=== PATIENT | male | born 1970 ===

== ENCOUNTER 2017-07-27 00:14 | Emergency (ER) | payer SELFPAY ==
[2017-07-27 01:06] VITALS: BP 131/85
[2017-07-27 01:40] LABS: Basophils % (Auto) 0.9 % (0.0-1.8); Eosinophils # (Auto) 0.1 K/mm3 (0.0-0.4); Eosinophils % (Auto) 1.6 % (0.0-4.3); Hematocrit 30.3 % (35.5-45.6); Hemoglobin 10.2 gm/dl (11.8-15.2); Lymphocytes # (Auto) 1.6 K/mm3 (1.2-5.4); Lymphocytes % (Auto) 34.1 % (13.4-35.0); Mean Corpuscular HGB Conc 34 % (32-34); Mean Corpuscular Hemoglobin 30 pg (28-32); Mean Corpuscular Volume 89 fl (84-94); Monocytes # (Auto) 0.3 K/mm3 (0.0-0.8); Monocytes % (Auto) 7.5 % (0.0-7.3); Platelet Count 282 K/mm3 (140-440); Red Blood Count 3.39 M/mm3 (3.65-5.03); Red Cell Distribution Width 16.7 % (13.2-15.2)
[2017-07-27 02:03] LABS: BUN/Creatinine Ratio 14; Blood Urea Nitrogen 14 mg/dL (9-20); Hemolysis Index 2
== END 2017-07-27 01:21 | disposition left against medical advice (07) ==
LOC: ED 00:14
DX: R07.9 Chest pain, unspecified (principal); Z53.21 Procedure and treatment not carried out due to patient leaving prior to being seen by health care provider
CPT/HCPCS: 36415; 80048; 84484; 85025; 93005; 93010

== ENCOUNTER 2018-05-05 20:07 | Inpatient (IN) | payer SELFPAY ==
--- NOTE | 2018-05-05 20:44 | Emergency Department Report ---
Blank Doc - Documentation Documentation: 48 year old male with pmh of unstable angina and stent placement, PE 6 months ago got a J Peg placed here today cc of chest pain radiating to shoulder, at rest when it happened took 5 nitro tabs no relief labs, protocol charge Nurse notified reevaluate by MAN ED physician
[2018-05-05 21:03] LABS: Basophils % (Auto) 0.4 % (0.0-1.8); Eosinophils % (Auto) 0.3 % (0.0-4.3); Hematocrit 27.6 % (35.5-45.6); Hemoglobin 9.4 gm/dl (11.8-15.2); Lymphocytes # (Auto) 1.1 K/mm3 (1.2-5.4); Lymphocytes % (Auto) 14.5 % (13.4-35.0); Mean Corpuscular HGB Conc 34 % (32-34); Mean Corpuscular Volume 89 fl (84-94); Monocytes # (Auto) 0.3 K/mm3 (0.0-0.8); Monocytes % (Auto) 3.7 % (0.0-7.3); Platelet Count 365 K/mm3 (140-440); Red Blood Count 3.09 M/mm3 (3.65-5.03); Red Cell Distribution Width 14.5 % (13.2-15.2)
[2018-05-05 21:14] LABS: INR 1.01 (0.87-1.13)
[2018-05-05 21:15] LABS: Partial Thromboplastin Time 28.1 Sec. (24.2-36.6)
[2018-05-05 21:20] LABS: Albumin 2.8 g/dL (3.9-5); Calcium 8.4 mg/dL (8.4-10.2)
--- NOTE | 2018-05-05 22:17 | XRay Report ---
FINAL REPORT PROCEDURE: XR CHEST ROUTINE 2V TECHNIQUE: PA and lateral chest radiographs were obtained. CPT 24042 HISTORY: Chest Pain COMPARISON: No prior studies are available for comparison. FINDINGS: Heart: A prosthetic cardiac valve is identified. Cardiac size is within normal limits.. Mediastinum/Vessels: Normal. Lungs/Pleural space: Normal. Bony thorax: No acute osseous abnormality. Other: IMPRESSION: No acute abnormality.
[2018-05-05] MEDS ORDERED: MORPHINE IV ONE (22:20)
--- NOTE | 2018-05-05 23:54 | Emergency Department Report ---
ED Chest Pain HPI - General Chief Complaint: Chest Pain Stated Complaint: CP/ABD PAIN/VOMITING BLOOD Time Seen by Provider: 05/05/18 20:38 Source: patient Mode of arrival: Ambulatory Limitations: No Limitations - History of Present Illness Initial Comments: 48-year-old male with history of PE, CAD, valve replacement, gastric bypass surgery, ruptured duodenal ulcer presents to ED with chest pain and abdominal pain near his J tube site. Patient states the chest pain is "crushing" in nature, states he took 5 nitroglycerin at home without relief of his pain. Patient reported abdominal pain near his J-tube site insertion for one month. Patient states he was diagnosed with a ruptured duodenal ulcer approximately 3 months ago and had a J-tube placed at [facility]. Reports blood- streaked emesis today. History of PE, no longer on any blood thinners. MD Complaint: chest pain -: minutes(s) (45) Onset: during rest Pain Location: substernal Pain Radiation: none Severity: moderate Severity scale (0 -10): 8 Quality: other (crushing) Consistency: constant Improves With: nothing Worsens With: nothing re: nausea, vomting. denies: dyspnea Treatments Prior to Arrival: nitroglycerin - Related Data Allergies Allergy/AdvReac Type Severity Reaction Status Date / Time NSAIDS (Non-Steroidal Allergy Bleeding Verified 07/27/17 01:06 Anti-Inflamma lisinopril AdvReac Unknown Verified 07/27/17 01:06 Heart Score - HEART Score History: Slightly suspicious EKG: Non-specific Age: 45-65 Risk factors: > 3 risk factors or hx of atherosclerotic disease Troponin: < normal limit HEART Score: 4 ED Review of Systems ROS: Stated complaint: CP/ABD PAIN/VOMITING BLOOD Other details as noted in HPI Comment: All other systems reviewed and negative Constitutional: denies: fever Respiratory: denies: shortness of breath Cardiovascular: chest pain Gastrointestinal: abdominal pain, nausea, vomiting ED Past Medical Hx - Past Medical History Previous Medical History?: Yes Hx Hypertension: Yes Hx CVA: No Hx Heart Attack/AMI: Yes Hx Congestive Heart Failure: No Hx Diabetes: No Hx Deep Vein Thrombosis: No Hx Pulmonary Embolism: Yes Hx GERD: No Hx Liver Disease: No Hx Renal Disease: No Hx of Cancer: No Hx Sickle Cell Disease: No Hx Arthritis: No Hx Headaches / Migraines: No Hx Seizures: No Hx Kidney Stones: No Hx Psychiatric Treatment: No Hx Asthma: No Hx COPD: No Hx Tuberculosis: No Hx Dementia: No Hx HIV: No Additional medical history: DVT purfuated bowl jpg - Surgical History Past Surgical History?: Yes Hx Coronary Stent: Yes Hx Open Heart Surgery: No Hx Pacemaker: No Hx Internal Defibrillator: No Hx Cholecystectomy: No Hx Appendectomy: No Hx Breast Surgery: No Additional Surgical History: Gastric bypass. jpg - Social History Smoking Status: Never Smoker Substance Use Type: None ED Physical Exam - General Limitations: No Limitations General appearance: alert, in no apparent distress - Head Head exam: Present: atraumatic, normocephalic - Eye Eye exam: Present: normal appearance - ENT ENT exam: Present: mucous membranes moist - Neck Neck exam: Present: normal inspection - Respiratory Respiratory exam: Present: normal lung sounds bilaterally. Absent: respiratory distress - Cardiovascular Cardiovascular Exam: Present: regular rate, normal rhythm - GI/Abdominal GI/Abdominal exam: Present: soft, tenderness. Absent: distended - Extremities Exam Extremities exam: Present: normal inspection - Neurological Exam Neurological exam: Present: alert, oriented X3 - Psychiatric Psychiatric exam: Present: normal affect, normal mood - Skin Skin exam: Present: warm, dry, intact, normal color ED Course Vital Signs 05/05/18 05/05/18 05/05/18 20:39 21:36 21:46 Temperature 97.9 F Pulse Rate 85 77 Respiratory 18 20 Rate Blood Pressure 127/74 127/79 O2 Sat by Pulse 98 99 100 Oximetry 05/05/18 22:00 Temperature Pulse Rate 79 Respiratory 26 H Rate Blood Pressure O2 Sat by Pulse 99 Oximetry ED Medical Decision Making - Lab Data Result diagrams: 05/05/18 20:49 05/05/18 20:49 - EKG Data -: EKG Interpreted by Nc EKG shows normal: sinus rhythm, axis, intervals, QRS complexes, ST-T waves Rate: normal - EKG Data Interpretation: other (T wave inversion in anterior leads) - Radiology Data Radiology results: report reviewed, image reviewed - Medical Decision Making 38-year-old male with extensive medical history presents with chest and abdominal pain. CT chest negative for PE. CT abdomen and pelvis negative for any acute modalities, including obstruction. EKG shows T-wave inversions in anterior leads, however troponin negative. Vital signs stable. Patient states pain unrelieved with nitroglycerin at home. Patient given morphine here in ED. Will admit to Dr. Hamm, hospitalist, for further workup. - Differential Diagnosis ACS, PE, bowel obstruction Critical care attestation.: If time is entered above; I have spent that time in minutes in the direct care of this critically ill patient, excluding procedure time. ED Disposition Clinical Impression: Abdominal pain, Unstable angina Disposition: OP ADMIT IP TO THIS HOSP Is pt being admited?: Yes Condition: Stable Instructions: Angina (ED) Referrals: PRIMARY CARE, [Primary Care Provider] - 3-5 Days Time of Disposition: 01:19
[2018-05-06] MEDS ORDERED: LOMOTIL PO ONE (00:14)
--- NOTE | 2018-05-06 00:19 | Cat Scan Report ---
FINAL REPORT EXAM: CT ANGIO CHEST HISTORY: chest pain, hx of PE TECHNIQUE: A CT angiogram was performed following the intravenous injection of 100 cc of Omnipaque 3 50. Rotational, sagittal, and coronal MIP reconstructions were reviewed. FINDINGS: There is no evidence of pulmonary embolus or aortic dissection. The thoracic aorta is normal in calib er. Heart size is normal. Pericardial fluid is not seen. There is no evidence of adenopathy. The lung s are not congested. There are no infiltrates or effusions. At the thoracic inlet the thyroid gland a ppears normal. In the upper abdomen there is a small hiatal hernia. The adrenal glands appear normal. There is multilevel disc degeneration in the thoracic spine. There previous sternotomy noted. IMPRESSION: No evidence of pulmonary embolus, aortic dissection, or vascular congestion. Previous sternotomy. No acute infiltrates or effusions.
--- NOTE | 2018-05-06 00:43 | Cat Scan Report ---
FINAL REPORT PROCEDURE: CT ABDOMEN PELVIS W CON TECHNIQUE: Computerized axial tomography of the abdomen and pelvis was performed after the IV inject ion of iodinated nonionic contrast. HISTORY: abd pain COMPARISON: No prior studies are available for comparison. FINDINGS: Visualized lower thorax: No significant abnormality. Liver: Normal size and attenuation. Spleen: Normal size and attenuation. Gallbladder and biliary system: The gallbladder is absent. No dilatation of the biliary ductal system . Pancreas: Normal. Adrenals: Normal. Kidneys: Both kidneys have normal size. No hydronephrosis. No renal stones. GI tract: The stomach shows a small hiatal hernia. Small bowel has a normal caliber. No obstruction i s seen. There is oral contrast within the colon.. Lymph nodes and mesentery: Normal. Vasculature: Normal. Bladder: Normal. Reproductive organs: Normal. Peritoneum: There is a catheter entering the abdomen from mid left anterior abdominal wall. No signif icant fluid noted.. Musculoskeletal structures: Moderate degenerative changes of the spine.. Other: None. IMPRESSION: There is no evidence of intestinal or urinary tract obstruction. There is a small hiatal hernia noted . There is a catheter entering the abdomen from the mid left anterior abdominal wall. Previous cholecystectomy.
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
[2018-05-06] MEDS: MORPHINE IV PRN ×4 (03:00→15:30)
[2018-05-06] MEDS ORDERED: SODIUM CHLORIDE FLUSH SYRINGE 10 ML IV PRN (06:42)
[2018-05-06] MEDS ORDERED: TYLENOL PO PRN (06:42)
[2018-05-06] MEDS ORDERED: NACL 0.9% 1000 ML 1,000 ML IV SCH (07:00)
[2018-05-06 07:36] LABS: Basophils % (Auto) 0.4 % (0.0-1.8); Eosinophils % (Auto) 0.4 % (0.0-4.3); Hematocrit 29.6 % (35.5-45.6); Hemoglobin 9.9 gm/dl (11.8-15.2); Lymphocytes # (Auto) 0.9 K/mm3 (1.2-5.4); Lymphocytes % (Auto) 11.1 % (13.4-35.0); Mean Corpuscular HGB Conc 33 % (32-34); Mean Corpuscular Volume 89 fl (84-94); Monocytes # (Auto) 0.3 K/mm3 (0.0-0.8); Monocytes % (Auto) 4.1 % (0.0-7.3); Platelet Count 342 K/mm3 (140-440); Red Blood Count 3.34 M/mm3 (3.65-5.03); Red Cell Distribution Width 14.5 % (13.2-15.2)
[2018-05-06 07:52] LABS: Creatine Kinase MB 1.3 ng/mL (0.0-4.0)
[2018-05-06 07:58] LABS: BUN/Creatinine Ratio 14; Blood Urea Nitrogen 14 mg/dL (9-20); Calcium 8.3 mg/dL (8.4-10.2); Hemolysis Index 36
[2018-05-06] MEDS ORDERED: LOVENOX SUB-Q SCH ×3 (10:00)
[2018-05-06] MEDS: SODIUM CHLORIDE FLUSH SYRINGE 10 ML IV SCH ×2 (10:43→21:04)
--- NOTE | 2018-05-06 11:05 | XRay Report ---
X-RAY G-TUBE STUDY History: G-tube site pain. Findings: Enroute Controller film of the abdomen demonstrates a jejunal tube in the lower abdomen and residual contrast in the colon. A second image was obtained after injection of contrast through the J-tube which opacifies multiple distal small bowel loops. There is no obvious obstruction or extravasation. Impression: The jejunal tube appears in position.
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
[2018-05-06] MEDS ORDERED: SODIUM BICARBONATE FEEDTUBE PRN (12:00)
[2018-05-06] MEDS ORDERED: PANCREAZE DR 10,500 UNIT FEEDTUBE PRN (12:00)
[2018-05-06] MEDS ORDERED: SIMPLE SYRUP FEEDTUBE PRN ×2 (12:00)
[2018-05-06 12:46] LABS: Creatine Kinase MB 1.1 ng/mL (0.0-4.0)
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
[2018-05-06] MEDS ORDERED: MORPHINE IV ONE (12:50)
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
[2018-05-06] MEDS: XANAX PO PRN ×2 (13:57→21:04)
--- NOTE | 2018-05-06 17:30 | Progress Note ---
Assessment and Plan Assessment and plan: A/P Moderately- Severe Protein calorie Malnutrition nutrition on board Acute on chronic chest pain cardio on board for stress test tomorrow Anemia of chronic disease monitor closely Acute on chronic abd pain GI on board h/o Gastric bypass 2008 h/o Perforated PUD continue PPI h/o CAD s/p CABG and s/p Stent placement cardio on board Suspect Chronic pain syndrome outpt pain mgt supportive care Mild Hyperkalemia monitor IVF hydration Further pt mgt per hospital course Disposition Plan: stress test in am Total Time Spent with Patient (Minutes): more than 33 mins History Interval history: HPI on 05/05/18 48-year-old man with a history of coronary artery disease, valve replacement, rupture of duodenal ulcer 3 months ago comes emergency room complaining of pain around his G-tube site which was replaced yesterday at [facility]. Also complaining of chest pain in the epigastric area which he is status a crushing pain, intermittent every 30 minutes, intensity 6/10, radiating to the left neck. Admits to nausea, no shortness of breath, diaphoresis. He had a stress test in [place] 4 months ago which was abnormal, he was supposed to follow-up with cardiac cath which he never did. Subjective: LATE ENTRY pt c/o 8/10 substarnal chest pain associated with SOB, not relieved by 2 mg of Morphine, wants something stronger for pain. Cardio input appreciated. Hospitalist Physical - Constitutional Vitals: Temp Pulse Resp BP Pulse Ox 99.1 F 69 20 146/89 97 05/06/18 16:04 05/06/18 16:04 05/06/18 16:04 05/06/18 16:04 05/06/18 16:04 General appearance: Present: mild distress (2/2 chest and abd pain), other (malnourished) - EENT Eyes: Present: PERRL, EOM intact ENT: hearing intact, clear oral mucosa - Neck Neck: Present: supple, normal ROM - Respiratory Respiratory: bilateral: CTA, negative: diminished, rales, rhonchi, wheezing - Cardiovascular Rhythm: regular Heart Sounds: Present: S1 & S2 - Extremities Extremities: pulses intact, normal temperature, normal color - Abdominal General gastrointestinal: soft, non-tender, non-distended, normal bowel sounds (surgical scars noted, PEG tube in place) - Integumentary Integumentary: Present: clear, warm, dry - Psychiatric Psychiatric: appropriate mood/affect, intact judgment & insight, memory intact, cooperative - Neurologic Neurologic: CNII-XII intact, moves all extremities - Allied Health Allied health notes reviewed: nursing, social work, case management Results - Labs CBC & Chem 7: 05/06/18 07:16 05/06/18 07:16 Labs: Laboratory Last Values WBC 8.3 K/mm3 (4.5-11.0) 05/06/18 07:16 RBC 3.34 M/mm3 (3.65-5.03) L 05/06/18 07:16 Hgb 9.9 gm/dl (11.8-15.2) L 05/06/18 07:16 Hct 29.6 % (35.5-45.6) L 05/06/18 07:16 MCV 89 fl (84-94) 05/06/18 07:16 MCH 30 pg (28-32) 05/06/18 07:16 MCHC 33 % (32-34) 05/06/18 07:16 RDW 14.5 % (13.2-15.2) 05/06/18 07:16 Plt Count 342 K/mm3 (140-440) 05/06/18 07:16 Lymph % (Auto) 11.1 % (13.4-35.0) L 05/06/18 07:16 [place] % (Auto) 4.1 % (0.0-7.3) 05/06/18 07:16 Eos % (Auto) 0.4 % (0.0-4.3) 05/06/18 07:16 Baso % (Auto) 0.4 % (0.0-1.8) 05/06/18 07:16 Lymph # 0.9 K/mm3 (1.2-5.4) L 05/06/18 07:16 [place] # 0.3 K/mm3 (0.0-0.8) 05/06/18 07:16 Eos # 0.0 K/mm3 (0.0-0.4) 05/06/18 07:16 Baso # 0.0 K/mm3 (0.0-0.1) 05/06/18 07:16 Seg Neutrophils % 84.0 % (40.0-70.0) H 05/06/18 07:16 Seg Neutrophils # 7.0 K/mm3 (1.8-7.7) 05/06/18 07:16 PT 13.9 Sec. (12.2-14.9) 05/05/18 20:49 INR 1.01 (0.87-1.13) 05/05/18 20:49 APTT 28.1 Sec. (24.2-36.6) 05/05/18 20:49 D-Dimer 479.07 ng/mlDDU (0-234) H 05/05/18 20:49 Sodium 138 mmol/L (137-145) 05/06/18 07:16 Potassium 5.1 mmol/L (3.6-5.0) H 05/06/18 07:16 Chloride 102.9 mmol/L (98-107) 05/06/18 07:16 Carbon Dioxide 21 mmol/L (22-30) L 05/06/18 07:16 Anion Gap 19 mmol/L 05/06/18 07:16 BUN 14 mg/dL (9-20) 05/06/18 07:16 Creatinine 1.0 mg/dL (0.8-1.5) 05/06/18 07:16 Estimated GFR > 60 ml/min 05/06/18 07:16 BUN/Creatinine Ratio 14 % 05/06/18 07:16 Glucose 118 mg/dL (75-100) H 05/06/18 07:16 Calcium 8.3 mg/dL (8.4-10.2) L 05/06/18 07:16 Total Bilirubin 0.20 mg/dL (0.1-1.2) 05/05/18 20:49 AST 47 units/L (5-40) H 05/05/18 20:49 ALT 26 units/L (7-56) 05/05/18 20:49 Alkaline Phosphatase 89 units/L (35-129) 05/05/18 20:49 Total Creatine Kinase 33 units/L (55-170) L 05/06/18 12:11 CK-MB (CK-2) 1.1 ng/mL (0.0-4.0) 05/06/18 12:11 CK-MB (CK-2) Rel Index 3.3 (0-4) 05/06/18 12:11 Troponin T < 0.010 ng/mL (0.00-0.029) 05/06/18 12:11 Total Protein 6.9 g/dL (6.3-8.2) 05/05/18 20:49 Albumin 2.8 g/dL (3.9-5) L 05/05/18 20:49 Albumin/Globulin Ratio 0.7 % 05/05/18 20:49 Lipase 17 units/L (13-60) 05/05/18 20:49 Blood Type A POSITIVE 05/05/18 20:49 Antibody Screen Negative 05/05/18 20:49 - Imaging and Cardiology Abdominal x-ray: report reviewed CT scan - chest: report reviewed Nutrition/Malnutrition Assess - Dietary Evaluation Nutrition/Malnutrition Findings: Nutrition Notes Start: 05/06/18 10:29 Freq: Status: Active Protocol: Document 05/06/18 10:29 ER (Rec: 05/06/18 10:50 ER [id number]) Co-Sign 05/06/18 10:29 LP Nutrition Notes Need for Assessment generated from: new accounts banking representative Initial or Follow up Assessment Current Diagnosis Coronary Artery Disease Hypertension Other Pertinent Diagnosis J-Tube, CABG, Gastric Bypass ( 2008) Current Diet Cardiac Diet Labs/Tests K: 5.1 Pertinent Medications Reviewed Height 6 ft 1 in Weight 67.1 kg Usual Body Weight 90.9 kg [place] Body Weight (kg) 83.63 BMI 19.5 Weight change and time frame 52# weightloss in one year (26 %) Weight Status Underweight Subjective/Other Information RN screen for pt. receiving TF . Pt. has a J-Tube in place and was feeding with Nutren 2. 0 at home. Pt. stated he usually does 24 hour feeds. Pt . stated he can drink fluids PO, but has a hard time eating solid foods. Pt. stated he weighed 380# before having a Jacob-en-Y gastric bypass in 2008. Pt. had stable weight of 200# until about a year ago. Pt. stated he wants to reverse the gastric bypass, but the doctor thought he was too weak . Pt. stated he doesn't exercise d/t his heart fluttering. Pt. has decreased muscle and fat mass along the forearms and in the temporal region. Pt. has had diarrhea and denies N/V and constipation. Per GI doctor, pt. can start TF. Burn Absent Trauma Absent GI Symptoms Diarrhea Minimum of two criteria Yes Interpretation of Weight Loss (severe) > 20% in 1 year Body Fat Depletion Moderate depletion (severe) Muscle Mass Moderate Depletion (severe) #2 Nutrition Diagnosis Altered GI function Etiology duodenal ulcer As Evidenced by Signs and Symptoms PEJ-tube #1 Nutrition Diagnosis Malnutrition Etiology inadequate energy and protein intake As Evidenced by Signs and Symptoms significant weightloss of 26% in one year, and moderate to severe fat and muscle mass depletion Is patient on ventilator? No Is Patient Ambulatory and/or Out of Bed Yes REE-([facility]-ambulatory/OOB) [ 2066.844 [id number]] Calculation Used for Recommendations [facility][1] Additional Notes PRO needs: 80-101g (1.2-1.5g/ kg) Fluid needs: 1 mL/kcal Nutrition Intervention Change Diet Order: TF - Jevity 1.2 at 70mL/hr Nutrition Support: Jevity 1.2 at 70 mL/hr w/100mL water flush q4h Kcal 2,016 Protein (gm) 96 Fluid (mL) 1,356 Fiber (gm) 30 Goal #1 TF to meet 100% of energy and protein needs. Goal #2 Weight maintenance Anticipated Discharge Needs: Tube Feed Follow-Up By: 05/09/18 Additional Comments F/U: New TF, weight maintenance
[2018-05-06] MEDS ORDERED: NACL 0.45% 1000 ML IV SCH (18:00)
[2018-05-06] MEDS ORDERED: NACL 0.45% 1000 ML 1,000 ML IV SCH (18:00)
[2018-05-06] MEDS: LOMOTIL PO PRN (18:33)
[2018-05-06] MEDS: DILAUDID IV PRN ×2 (18:34→22:40)
[2018-05-06] MEDS ORDERED: NON-FORMULARY (Simvastatin 40 MG) PO SCH (22:00)
[2018-05-06] MEDS ORDERED: PRAVACHOL PO SCH (22:00)
[2018-05-06] MEDS: NACL 0.45% 1000 ML 1,000 ML IV SCH (23:22)
[2018-05-06] MEDS: AMBIEN PO PRN (23:52)
[2018-05-07 00:58] LABS: Hematocrit 26.9 % (35.5-45.6); Hemoglobin 8.8 gm/dl (11.8-15.2); Mean Corpuscular HGB Conc 33 % (32-34); Mean Corpuscular Volume 90 fl (84-94); Platelet Count 280 K/mm3 (140-440); Red Blood Count 2.98 M/mm3 (3.65-5.03); Red Cell Distribution Width 14.6 % (13.2-15.2)
[2018-05-07 01:23] LABS: BUN/Creatinine Ratio 12; Blood Urea Nitrogen 12 mg/dL (9-20); Calcium 7.6 mg/dL (8.4-10.2); Hemolysis Index 3
[2018-05-07] MEDS: DILAUDID IV PRN ×5 (02:42→21:20)
[2018-05-07] MEDS: XANAX PO PRN ×3 (02:42→21:19)
[2018-05-07] MEDS: LOMOTIL PO PRN ×3 (02:46→21:18)
[2018-05-07] MEDS ORDERED: LEXISCAN IV ONE ×2 (08:09→08:30)
[2018-05-07] MEDS ORDERED: NACL 0.45% 1000 ML 1,000 ML IV ONE (10:21)
[2018-05-07] MEDS: NACL 0.45% 1000 ML 1,000 ML IV SCH (11:03)
--- NOTE | 2018-05-07 15:49 | Progress Note ---
Assessment and Plan Acute on chronic chest pain Abnormal stress test cardio on board Moderately- Severe Protein calorie Malnutrition nutrition on board Anemia of chronic disease monitor closely Acute on chronic abd pain GI on board h/o Gastric bypass 2008 h/o Perforated PUD continue PPI h/o CAD s/p CABG and s/p Stent placement cardio on board Suspect Chronic pain syndrome outpt pain mgt supportive care Mild Hyperkalemia -corrected monitor IVF hydration Disposition Plan: Commence spent on antiplatelet, Plavix, to be decided by GI and thereafter discharged if clinically stable Total Time Spent with Patient (Minutes): more than 33 mins Subjective Date of service: 05/07/18 Principal diagnosis: chest pain, chronic pain syndrome, coronary artery disease status post CABG Interval history: Had a stress test today showed fixed apical wall defect suggestive of ischemia of LAD distribution Objective - Exam Narrative Exam: Constitutional: Well-nourished well-developed. In no distress Head: Normocephalic atraumatic Eyes: Pupils are equal round and reactive to light Nose: No enlarged turbinates, no septal deviation. Mouth: Moist mucous membranes. Neck: Supple no thyromegaly. No bruit. No JVD Heart: Regular rate and rhythm, S1-S2 normal. No rubs murmurs or gallop Lungs: Clear to auscultation bilaterally. no rales or rhonchi Abdomen: Soft, nontender. Bowel sound are present. Extremities: No edema, no cyanosis, no clubbing. Neuro: Alert oriented Oriented x3. No focal sensory or motor deficit. Skin: No rashes or hyperpigmented spots Musculoskeletal system: No joint pain or swelling Hematological: No petechia or subcutanous hemorrhages. Immunological: No multiple septic spots on the skin Lymphatic: No generalized lymphadenopathy Psychiatry: Euthymic. Calm. - Constitutional Vitals: Vital Signs - 12hr 05/07/18 05/07/18 05/07/18 04:29 07:35 10:31 Temperature 97.4 F L 97.6 F Pulse Rate 77 72 Respiratory 17 14 Rate Blood Pressure 144/88 138/91 161/99 O2 Sat by Pulse 99 99 Oximetry 05/07/18 05/07/18 05/07/18 10:37 10:38 10:39 Temperature Pulse Rate Respiratory Rate Blood Pressure 168/95 121/75 139/84 O2 Sat by Pulse Oximetry 05/07/18 05/07/18 05/07/18 10:40 10:41 13:18 Temperature 97.8 F Pulse Rate 78 Respiratory 16 Rate Blood Pressure 146/84 149/86 144/92 O2 Sat by Pulse 99 Oximetry - Labs CBC & Chem 7: 05/07/18 00:34 05/07/18 00:34 Labs: Abnormal lab results 05/07/18 05/07/18 Range/Units 00:34 00:34 RBC 2.98 L (3.65-5.03) M/mm3 Hgb 8.8 L (11.8-15.2) gm/dl Hct 26.9 L (35.5-45.6) % Glucose 130 H (75-100) mg/dL Calcium 7.6 L (8.4-10.2) mg/dL
[2018-05-07] MEDS: SODIUM CHLORIDE FLUSH SYRINGE 10 ML IV SCH ×2 (16:43→21:20)
--- NOTE | 2018-05-07 16:43 | Progress Note ---
Assessment and Plan Chest pain - reason for admission MPI showing ischemia/infarction in the LAD distribution (intermediate risk study) CAD s/p CABG x 2 (2.5 years ago) and PCI x 3 stents (1.5 years ago) in [place] Patient is not on antiplatelet therapy at home s/p tissue AVR Normal function by echo this admission Perforated ulcer s/p jejunostomy tube 1 episode of hematemesis 1 week ago History of gastric bypass Anemia with baseline Hemoglobin around 11 per patient Denies melena or hematochezia Patient required blood transfusion after his most recent PCI. GI work-up at that time with EGD and colonoscopy was unrevealing H/H noted to be trending downward Recommendations: Obtain records from [facility] Monitor H/H (counts are trending down) Start antianginal therapy with metoprolol, amlodipine Change pravastatin to atorvastatin Will need GI input in terms of initiation of plavix therapy Subjective Date of service: 05/07/18 Principal diagnosis: Chest Pain Interval history: No cardiac events overnight Objective Vital Signs Temp Pulse Resp BP BP Pulse Ox 05/07/18 13:18 97.8 F 78 16 144/92 99 05/07/18 10:41 149/86 05/07/18 10:40 146/84 05/07/18 10:39 139/84 05/07/18 10:38 121/75 05/07/18 10:37 168/95 05/07/18 10:31 161/99 05/07/18 07:35 97.6 F 72 14 138/91 99 05/07/18 04:29 97.4 F L 77 17 144/88 99 05/07/18 02:42 16 05/06/18 23:42 98.9 F 91 H 16 108/68 99 05/06/18 23:37 97.5 F L 73 16 149/96 98 05/06/18 23:00 97.5 F L 73 16 149/96 98 05/06/18 22:00 70 05/06/18 20:55 100 05/06/18 19:51 97.7 F 71 12 162/97 99 - Physical Examination HEENT: Positive: PERRL Neck: Positive: neck supple Cardiac: Positive: Reg Rate and Rhythm, Systolic Murmur Lungs: Positive: Normal Exam Neuro: Positive: Grossly Intact Abdomen: Positive: Soft Extremities: Absent: edema - Labs and Meds CBC 05/07/18 Range/Units 00:34 WBC 5.6 (4.5-11.0) K/mm3 RBC 2.98 L (3.65-5.03) M/mm3 Hgb 8.8 L (11.8-15.2) gm/dl Hct 26.9 L (35.5-45.6) % Plt Count 280 (140-440) K/mm3 Comprehensive Metabolic Panel 05/07/18 Range/Units 00:34 Sodium 137 (137-145) mmol/L Potassium 4.6 (3.6-5.0) mmol/L Chloride 104.5 (98-107) mmol/L Carbon Dioxide 23 (22-30) mmol/L BUN 12 (9-20) mg/dL Creatinine 1.0 (0.8-1.5) mg/dL Glucose 130 H (75-100) mg/dL Calcium 7.6 L (8.4-10.2) mg/dL - Imaging and Cardiology EKG: image reviewed
[2018-05-07] MEDS: LOPRESSOR PO SCH (21:19)
--- NOTE | 2018-05-07 22:30 | Treadmill Report ---
INDICATION FOR THE PROCEDURE: Chest pain. ORDERING PHYSICIAN: Jenny Molina MD FINDINGS: There is evidence of a moderate-sized fixed and reversible apical wall defect of severe intensity, suggesting prior KS as well as ischemia in the LAD distribution. Gated wall imaging suggests hypokinesis at the apical wall. The left ventricular ejection fraction is measured at 68%. CONCLUSION: 1. Abnormal myocardial perfusion scan revealing a moderate-sized mixed apical wall defect of severe intensity, suggesting ischemia in the LAD distribution. 2. There is apical wall hypokinesis with an ejection fraction measured at 68%. 3. This is an intermediate-risk myocardial perfusion imaging scan associated with 1-year cardiovascular event rate of 1-3%. JOB# [id number] MARIBETH/JEREMÍAS
[2018-05-08] MEDS: NACL 0.45% 1000 ML 1,000 ML IV SCH ×3 (00:37→22:20)
[2018-05-08] MEDS: DILAUDID IV PRN ×6 (01:38→22:20)
[2018-05-08] MEDS: AMBIEN PO PRN ×2 (01:39→22:53)
[2018-05-08] MEDS: LOMOTIL PO PRN ×3 (06:06→22:18)
[2018-05-08] MEDS: XANAX PO PRN ×3 (06:06→22:19)
[2018-05-08 07:29] LABS: Basophils % (Auto) 0.4 % (0.0-1.8); Eosinophils # (Auto) 0.2 K/mm3 (0.0-0.4); Eosinophils % (Auto) 2.9 % (0.0-4.3); Hematocrit 26.8 % (35.5-45.6); Hemoglobin 8.9 gm/dl (11.8-15.2); Lymphocytes # (Auto) 0.9 K/mm3 (1.2-5.4); Lymphocytes % (Auto) 14.4 % (13.4-35.0); Mean Corpuscular HGB Conc 33 % (32-34); Mean Corpuscular Volume 89 fl (84-94); Monocytes # (Auto) 0.3 K/mm3 (0.0-0.8); Monocytes % (Auto) 5.2 % (0.0-7.3); Platelet Count 292 K/mm3 (140-440); Red Blood Count 3.01 M/mm3 (3.65-5.03); Red Cell Distribution Width 14.4 % (13.2-15.2)
[2018-05-08 07:47] LABS: Alanine Aminotransferase 26 units/L (7-56); Albumin 2.6 g/dL (3.9-5); BUN/Creatinine Ratio 11; Blood Urea Nitrogen 10 mg/dL (9-20); Calcium 7.8 mg/dL (8.4-10.2); Hemolysis Index 6
--- NOTE | 2018-05-08 09:31 | Progress Note ---
Assessment and Plan Chest pain - reason for admission MPI showing ischemia/infarction in the LAD distribution (intermediate risk study) CAD s/p CABG x 2 (2.5 years ago) and PCI x 3 stents (1.5 years ago) in [facility] to LAD bypass (unknown second bypass from cath report) Patient is not on antiplatelet therapy at home s/p tissue AVR Normal function by echo this admission Perforated ulcer s/p jejunostomy tube 1 episode of hematemesis 1 week ago History of gastric bypass Anemia with baseline Hemoglobin around 11 per patient Denies melena or hematochezia Patient required blood transfusion after his most recent PCI. GI work-up at that time with EGD and colonoscopy was unrevealing Recommendations: Monitor H/H Start plavix 75 mg po daily Avoid aspirin given history of GI ulcers Coronary angio on wednesday for recurrent chest pain and abnormal MPI Subjective Date of service: 05/08/18 Principal diagnosis: chest pain, chronic pain syndrome, coronary artery disease status post CABG Interval history: Patient continues to have intermittent episodes of chest pain No cardiac events on tele Objective Vital Signs Temp Pulse Resp BP Pulse Ox 05/08/18 07:40 97.9 F 58 L 16 130/72 98 05/08/18 04:18 97.9 F 59 L 16 122/72 99 05/07/18 23:00 98.0 F 53 L 16 110/67 99 05/07/18 22:00 68 05/07/18 21:19 74 145/84 05/07/18 19:28 98.1 F 76 16 139/93 99 05/07/18 13:18 97.8 F 78 16 144/92 99 05/07/18 10:41 149/86 05/07/18 10:40 146/84 05/07/18 10:39 139/84 05/07/18 10:38 121/75 05/07/18 10:37 168/95 05/07/18 10:31 161/99 - Physical Examination HEENT: Positive: PERRL Neck: Positive: neck supple Cardiac: Positive: Reg Rate and Rhythm Lungs: Positive: Normal Exam Neuro: Positive: Grossly Intact Abdomen: Positive: Soft Extremities: Absent: edema - Labs and Meds Cardiac Enzymes 05/08/18 Range/Units 06:42 AST 33 (5-40) units/L CBC 05/08/18 Range/Units 06:42 WBC 6.3 (4.5-11.0) K/mm3 RBC 3.01 L (3.65-5.03) M/mm3 Hgb 8.9 L (11.8-15.2) gm/dl Hct 26.8 L (35.5-45.6) % Plt Count 292 (140-440) K/mm3 Lymph # 0.9 L (1.2-5.4) K/mm3 [place] # 0.3 (0.0-0.8) K/mm3 Eos # 0.2 (0.0-0.4) K/mm3 Baso # 0.0 (0.0-0.1) K/mm3 Comprehensive Metabolic Panel 05/08/18 Range/Units 06:42 Sodium 137 (137-145) mmol/L Potassium 5.2 H (3.6-5.0) mmol/L Chloride 103.3 (98-107) mmol/L Carbon Dioxide 25 (22-30) mmol/L BUN 10 (9-20) mg/dL Creatinine 0.9 (0.8-1.5) mg/dL Glucose 139 H (75-100) mg/dL Calcium 7.8 L (8.4-10.2) mg/dL AST 33 (5-40) units/L ALT 26 (7-56) units/L Alkaline Phosphatase 84 (35-129) units/L Total Protein 5.7 L (6.3-8.2) g/dL Albumin 2.6 L (3.9-5) g/dL - Imaging and Cardiology EKG: image reviewed
[2018-05-08] MEDS: LOVENOX SUB-Q SCH (10:19)
[2018-05-08] MEDS: PLAVIX PO SCH (10:19)
[2018-05-08] MEDS: LOPRESSOR PO SCH ×2 (10:20→22:19)
[2018-05-08] MEDS: NORVASC PO SCH (10:21)
[2018-05-08] MEDS: SODIUM CHLORIDE FLUSH SYRINGE 10 ML IV SCH ×2 (10:22→22:20)
--- NOTE | 2018-05-08 17:31 | Progress Note ---
Assessment and Plan 28-year-old man with a history of coronary artery disease, valve replacement, rupture of duodenal ulcer 3 months ago comes emergency room complaining of pain around his G-tube site which was replaced yesterday at [facility]. Also complaining of chest pain in the epigastric area which she is status a crushing pain, intermittent every 30 minutes, intensity 6/10, radiating to the left neck. Admits to nausea, no shortness of breath, diaphoresis. He had a stress test in [place] 4 months ago which was abnormal. For cardiac cath. Acute on chronic chest pain Abnormal stress test cardio on board for cath Moderately- Severe Protein calorie Malnutrition nutrition on board s/p jejunal tube causing diahrrea Contuei with lomotil for the entral feeding induce diarrhea Anemia of chronic disease monitor closely Acute on chronic abd pain GI on board h/o Gastric bypass 2008 h/o Perforated PUD continue PPI h/o CAD s/p CABG and s/p Stent placement cardio on board Suspect Chronic pain syndrome outpt pain mgt supportive care Mild Hyperkalemia -corrected monitor IVF hydration Disposition Plan: Commence spent on antiplatelet, Plavix, to be decided by GI and thereafter discharged if clinically stable Total Time Spent with Patient (Minutes): more than 33 mins Subjective Date of service: 05/08/18 Principal diagnosis: chest pain, chronic pain syndrome, coronary artery disease status post CABG Interval history: Had a stress test today showed fixed apical wall defect suggestive of ischemia of LAD distribution. no chest pain Objective - Exam Narrative Exam: Constitutional: Well-nourished well-developed. In no distress Head: Normocephalic atraumatic Eyes: Pupils are equal round and reactive to light Nose: No enlarged turbinates, no septal deviation. Mouth: Moist mucous membranes. Neck: Supple no thyromegaly. No bruit. No JVD Heart: Regular rate and rhythm, S1-S2 normal. No rubs murmurs or gallop Lungs: Clear to auscultation bilaterally. no rales or rhonchi Abdomen: Soft, nontender. Bowel sound are present. Extremities: No edema, no cyanosis, no clubbing. Neuro: Alert oriented Oriented x3. No focal sensory or motor deficit. Skin: No rashes or hyperpigmented spots Musculoskeletal system: No joint pain or swelling Hematological: No petechia or subcutanous hemorrhages. Immunological: No multiple septic spots on the skin Lymphatic: No generalized lymphadenopathy Psychiatry: Euthymic. Calm. - Constitutional Vitals: Vital Signs - 12hr 05/08/18 05/08/18 05/08/18 07:40 10:00 10:20 Temperature 97.9 F Pulse Rate 58 L 63 Pulse Rate [ 63 Apical] Respiratory 16 17 Rate Blood Pressure 130/72 151/76 Blood Pressure [Left] O2 Sat by Pulse 98 Oximetry 05/08/18 05/08/18 05/08/18 10:21 11:27 14:21 Temperature Pulse Rate 63 56 L Pulse Rate [ Apical] Respiratory 16 17 Rate Blood Pressure 151/76 Blood Pressure [Left] O2 Sat by Pulse Oximetry 05/08/18 14:24 Temperature 98.1 F Pulse Rate 63 Pulse Rate [ Apical] Respiratory 19 Rate Blood Pressure Blood Pressure 137/82 [Left] O2 Sat by Pulse 100 Oximetry - Labs CBC & Chem 7: 05/08/18 06:42 05/08/18 06:42 Labs: Abnormal lab results 05/08/18 05/08/18 Range/Units 06:42 06:42 RBC 3.01 L (3.65-5.03) M/mm3 Hgb 8.9 L (11.8-15.2) gm/dl Hct 26.8 L (35.5-45.6) % Lymph # 0.9 L (1.2-5.4) K/mm3 Seg Neutrophils % 77.1 H (40.0-70.0) % Potassium 5.2 H (3.6-5.0) mmol/L Glucose 139 H (75-100) mg/dL Calcium 7.8 L (8.4-10.2) mg/dL Total Protein 5.7 L (6.3-8.2) g/dL Albumin 2.6 L (3.9-5) g/dL
[2018-05-09] MEDS: DILAUDID IV PRN ×5 (02:25→21:04)
[2018-05-09 06:18] LABS: Basophils % (Auto) 0.4 % (0.0-1.8); Eosinophils # (Auto) 0.2 K/mm3 (0.0-0.4); Eosinophils % (Auto) 4.5 % (0.0-4.3); Hematocrit 26.6 % (35.5-45.6); Hemoglobin 8.8 gm/dl (11.8-15.2); Lymphocytes # (Auto) 1.1 K/mm3 (1.2-5.4); Mean Corpuscular HGB Conc 33 % (32-34); Mean Corpuscular Volume 90 fl (84-94); Monocytes # (Auto) 0.3 K/mm3 (0.0-0.8); Monocytes % (Auto) 7.1 % (0.0-7.3); Platelet Count 276 K/mm3 (140-440); Red Blood Count 2.97 M/mm3 (3.65-5.03); Red Cell Distribution Width 14.5 % (13.2-15.2)
[2018-05-09 06:29] LABS: INR 1.02 (0.87-1.13)
[2018-05-09 06:30] LABS: Alanine Aminotransferase 24 units/L (7-56); Albumin 2.5 g/dL (3.9-5); BUN/Creatinine Ratio 11; Blood Urea Nitrogen 10 mg/dL (9-20); Calcium 7.9 mg/dL (8.4-10.2); Hemolysis Index 9
[2018-05-09] MEDS: ZOFRAN IV PRN (06:42)
[2018-05-09] MEDS: LOMOTIL PO PRN ×3 (06:42→21:06)
[2018-05-09] MEDS: LOVENOX SUB-Q SCH (10:46)
[2018-05-09] MEDS: LOPRESSOR PO SCH ×2 (10:55→21:05)
[2018-05-09] MEDS: NORVASC PO SCH (10:57)
[2018-05-09] MEDS: SODIUM CHLORIDE FLUSH SYRINGE 10 ML IV SCH ×2 (10:58→22:40)
[2018-05-09] MEDS: PLAVIX PO SCH ×2 (10:59→11:37)
[2018-05-09] MEDS: XANAX PO PRN ×2 (11:02→21:04)
[2018-05-09] MEDS ORDERED: HEPARIN 10,000 UNITS/10 ML ONE (13:44)
[2018-05-09] MEDS ORDERED: HEPARIN/NS 5000 UNIT/500ML(CATH LAB) 1,000 ML IR ONE (13:44)
[2018-05-09] MEDS ORDERED: NITROGLYCERIN SYRINGE 0 ML ONE (13:44)
[2018-05-09] MEDS ORDERED: XYLOCAINE 2% INFILTRATI ONE (13:44)
[2018-05-09] MEDS ORDERED: NACL 0.9% 500 ML 500 ML ONE (13:51)
[2018-05-09] MEDS ORDERED: VERSED ONE (14:10)
[2018-05-09] MEDS: SUBLIMAZE ONE ×2 (14:20→14:27)
--- NOTE | 2018-05-09 14:59 | Event Note ---
Date: 05/09/18 Patient underwent cardiac catheterization with coronary angiography and bypass graft angiography, no complications. Findings: 1. Multivessel coronary artery disease with severe stenosis of the proximal right coronary artery and chronic total occlusion of the proximal to mid LAD. 2. Patent internal mammary artery graft to the LAD. 3. Patent saphenous vein graft to the right coronary artery. 4. No significant gradient across the bioprosthetic aortic valve. 5. Normal to hyperdynamic left ventricular systolic function, ejection fraction 65-70%. Recommendation medical therapy and risk factor modification.
[2018-05-09] MEDS ORDERED: NACL 0.9% 500 ML 500 ML IV SCH (15:00)
--- NOTE | 2018-05-09 17:02 | Progress Note ---
Assessment and Plan 28-year-old man with a history of coronary artery disease, valve replacement, rupture of duodenal ulcer 3 months ago comes emergency room complaining of pain around his G-tube site which was replaced yesterday at [facility]. Also complaining of chest pain in the epigastric area which she is status a crushing pain, intermittent every 30 minutes, intensity 6/10, radiating to the left neck. Admits to nausea, no shortness of breath, diaphoresis. He had a stress test in [place] 4 months ago which was abnormal. For cardiac cath. Acute on chronic chest pain Abnormal stress test cardio on board for cath Moderately- Severe Protein calorie Malnutrition nutrition on board s/p jejunal tube causing diahrrea Contuei with lomotil for the entral feeding induce diarrhea Anemia of chronic disease monitor closely Acute on chronic abd pain GI on board h/o Gastric bypass 2008 h/o Perforated PUD continue PPI h/o CAD s/p CABG and s/p Stent placement cardio on board Suspect Chronic pain syndrome outpt pain mgt supportive care Mild Hyperkalemia -corrected monitor IVF hydration Disposition Plan: Commence spent on antiplatelet, Plavix, to be decided by GI and thereafter discharged if clinically stable Total Time Spent with Patient (Minutes): more than 33 mins Subjective Date of service: 05/09/18 Principal diagnosis: chest pain, chronic pain syndrome, coronary artery disease status post CABG Interval history: Had a stress test today showed fixed apical wall defect suggestive of ischemia of LAD distribution. Had cardiac cath today. Stenosi of the proxima right coronary artery identified. Medical management Objective - Exam Narrative Exam: Constitutional: Well-nourished well-developed.In no distress Head: Normocephalic atraumatic Eyes: Pupils are equal round and reactive to light Nose: No enlarged turbinates, no septal deviation. Mouth: Moist mucous membranes. Neck: Supple no thyromegaly. No bruit. No JVD Heart: Regular rate and rhythm, S1-S2 normal. No rubs murmurs or gallop Lungs: Clear to auscultation bilaterally. no rales or rhonchi Abdomen: Soft, nontender. Bowel sound are present. Extremities: No edema, no cyanosis, no clubbing. Neuro: Alert oriented Oriented x3. No focal sensory or motor deficit. Skin: No rashes or hyperpigmented spots Musculoskeletal system: No joint pain or swelling Hematological: No petechia or subcutanous hemorrhages. Immunological: No multiple septic spots on the skin Lymphatic: No generalized lymphadenopathy Psychiatry: Euthymic. Calm. - Constitutional Vitals: Vital Signs - 12hr 05/09/18 05/09/18 05/09/18 06:00 08:56 08:57 Temperature 97.6 F Pulse Rate 55 L 57 L Pulse Rate [ Right Radial] Respiratory 18 Rate Blood Pressure 122/68 O2 Sat by Pulse 100 Oximetry 05/09/18 05/09/18 05/09/18 10:00 10:55 10:57 Temperature Pulse Rate 59 L 59 L Pulse Rate [ 59 L Right Radial] Respiratory Rate Blood Pressure 122/68 122/68 O2 Sat by Pulse Oximetry - Labs CBC & Chem 7: 05/09/18 05:16 05/09/18 05:16 Labs: Abnormal lab results 05/09/18 05/09/18 Range/Units 05:16 05:16 RBC 2.97 L (3.65-5.03) M/mm3 Hgb 8.8 L (11.8-15.2) gm/dl Hct 26.6 L (35.5-45.6) % Eos % (Auto) 4.5 H (0.0-4.3) % Lymph # 1.1 L (1.2-5.4) K/mm3 Potassium 5.3 H (3.6-5.0) mmol/L Calcium 7.9 L (8.4-10.2) mg/dL Total Protein 5.7 L (6.3-8.2) g/dL Albumin 2.5 L (3.9-5) g/dL
--- NOTE | 2018-05-09 17:27 | Cardiac Catherization Report ---
CARDIAC CATHETERIZATION REPORT REASON FOR PROCEDURE: The patient is a 48-year-old man with history of coronary artery disease, and aortic valve disease, status post bioprosthetic aortic valve replacement and 2-vessel coronary bypass performed 2 years ago in [place]. He presented to the hospital at this time with chest pain and he was referred for cardiac catheterization. PROCEDURE: 1. Left heart catheterization. 2. Selective left and right coronary angiography. 3. Angiography of the left internal mammary artery graft. 4. Angiography of the saphenous vein grafts. 5. Left ventricular angiography. 6. Sedation time start 14:23 and 14:40. DESCRIPTION OF PROCEDURE: The patient was prepped and draped in a sterile fashion after informed consent. The right femoral artery was entered using Seldinger technique followed by placement of a 6-Maori sheath. Selective left and right coronary angiography was performed using a #4 left Andrey and a #4 right Andrey. The right Andrey catheter was used for angiography of the saphenous vein graft to the right coronary system. We also used the right Andrey catheter for the left ventricle angiography. We then exchanged for a left internal mammary artery catheter that was used for the left internal mammary artery graft. The catheters were then removed, sheath removed, and hemostasis achieved using an Angio-Seal device. The patient was returned to the post-procedure unit in stable condition. There were no complications. FINDINGS: HEMODYNAMICS: Left ventricular end diastolic pressure was 16. Ascending aortic pressure was 178/90. There was no significant pressure gradient on pullback across the aortic valve bioprosthesis. CORONARY ANGIOGRAPHY: There was diffuse moderate coronary calcification. The left main coronary artery contained diffuse mild atherosclerosis. The left anterior descending artery was completely occluded in its proximal to mid segment. The left internal mammary artery graft to the LAD was patent with good anastomosis to the mid LAD, good distal runoff and good retrograde perfusion of a small mid diagonal branch. A large ramus intermedius artery contained a 40-50% stenosis of its proximal segment, but otherwise contained diffuse mild atherosclerosis. The circumflex artery and its obtuse marginal branches contained diffuse mild atherosclerosis. Right coronary artery was dominant. This vessel contained an 80% stenosis of its proximal segment. The saphenous vein graft to the distal right coronary artery was patent with good anastomosis to the mid segment of the posterior descending branch, good distal runoff and good retrograde perfusion of the posterolateral branches. There was normal to hyperdynamic left ventricular systolic function, ejection fraction of 65-70%. CONCLUSION: 1. No significant gradient across the aortic valve bioprosthesis. 2. Normal to hyperdynamic left ventricular systolic function, ejection fraction 65-70%. 3. Multivessel coronary artery disease with severe lesions of the LAD and right coronary arteries. 4. Patent left internal mammary artery graft to the LAD. 5. Patent saphenous vein graft to the distal right coronary artery. RECOMMENDATION: Aggressive risk factor modification and medical therapy. JOB# [id number] CA/NTS
[2018-05-09] MEDS: NACL 0.9% 1000 ML 1,000 ML IV SCH (21:06)
[2018-05-09] MEDS: AMBIEN PO PRN (22:33)
[2018-05-10] MEDS: DILAUDID IV PRN ×6 (01:56→23:08)
[2018-05-10] MEDS: XANAX PO PRN ×3 (05:20→23:08)
[2018-05-10] MEDS: LOMOTIL PO PRN ×3 (05:20→18:51)
[2018-05-10] MEDS: NACL 0.9% 1000 ML 1,000 ML IV SCH (06:08)
[2018-05-10 07:48] LABS: Basophils % (Auto) 0.4 % (0.0-1.8); Eosinophils # (Auto) 0.2 K/mm3 (0.0-0.4); Eosinophils % (Auto) 4.2 % (0.0-4.3); Hematocrit 26.2 % (35.5-45.6); Hemoglobin 8.7 gm/dl (11.8-15.2); Lymphocytes % (Auto) 21.1 % (13.4-35.0); Mean Corpuscular HGB Conc 33 % (32-34); Mean Corpuscular Volume 89 fl (84-94); Monocytes # (Auto) 0.3 K/mm3 (0.0-0.8); Monocytes % (Auto) 6.8 % (0.0-7.3); Platelet Count 286 K/mm3 (140-440); Red Blood Count 2.94 M/mm3 (3.65-5.03); Red Cell Distribution Width 14.5 % (13.2-15.2)
[2018-05-10 08:06] LABS: Alanine Aminotransferase 36 units/L (7-56); Albumin 2.5 g/dL (3.9-5); BUN/Creatinine Ratio 11; Blood Urea Nitrogen 10 mg/dL (9-20); Calcium 8.1 mg/dL (8.4-10.2); Hemolysis Index 4
[2018-05-10] MEDS: LOVENOX SUB-Q SCH (10:50)
[2018-05-10] MEDS: NORVASC PO SCH (10:51)
[2018-05-10] MEDS: PLAVIX PO SCH (10:51)
[2018-05-10] MEDS: LOPRESSOR PO SCH ×2 (10:51→22:13)
[2018-05-10] MEDS: SODIUM CHLORIDE FLUSH SYRINGE 10 ML IV SCH ×2 (10:52→22:14)
--- NOTE | 2018-05-10 11:29 | Progress Note ---
Addendum entered and electronically signed by DONNY HOSKINS MD 05/10/18 13:22: No further cardiac workup is indicated, even proceed with GI evaluation, for his noncardiac chest pain. We will follow intermittently. Original Note: Assessment and Plan Chest pain - reason for admission cardiac catheterization findings: 1. Multivessel coronary artery disease with severe stenosis of the proximal right coronary artery and chronic total occlusion of the proximal to mid LAD. 2. Patent internal mammary artery graft to the LAD. 3. Patent saphenous vein graft to the right coronary artery. 4. No significant gradient across the bioprosthetic aortic valve. 5. Normal to hyperdynamic left ventricular systolic function, ejection fraction 65-70%. CAD s/p CABG x 2 (2.5 years ago) and PCI x 3 stents (1.5 years ago) in [place] Patient is not on antiplatelet therapy at home s/p tissue AVR Normal function by echo this admission Perforated ulcer s/p jejunostomy tube 1 episode of hematemesis 1 week ago History of gastric bypass Anemia Recommendations: Medical therapy and risk factor modification for underlying coronary artery disease. We will add nitrates for chronic stable angina. Subjective Date of service: 05/10/18 Principal diagnosis: chest pain, chronic pain syndrome, coronary artery disease status post CABG Interval history: Still with complaints of chest pain. No distress noted. Objective Vital Signs Temp Pulse Resp BP BP Pulse Ox 05/10/18 11:22 18 05/10/18 10:52 18 05/10/18 09:02 98.1 F 62 18 115/62 100 05/10/18 06:00 76 05/10/18 03:38 97.9 F 58 L 18 112/66 100 05/09/18 23:38 98.3 F 61 18 105/61 97 05/09/18 22:09 97.4 F L 67 18 175/81 05/09/18 22:00 22 05/09/18 19:33 98.5 F 82 18 132/78 100 05/09/18 16:36 88 137/81 05/09/18 16:06 76 18 142/99 05/09/18 15:42 76 140/68 100 - Physical Examination General: No Apparent Distress HEENT: Positive: PERRL Neck: Positive: trachea midline Cardiac: Positive: Reg Rate and Rhythm Lungs: Positive: Decreased Breath Sounds Neuro: Positive: Grossly Intact Extremities: Absent: edema - Labs and Meds Cardiac Enzymes 05/10/18 Range/Units 06:10 AST 52 H (5-40) units/L CBC 05/10/18 Range/Units 06:10 WBC 4.7 (4.5-11.0) K/mm3 RBC 2.94 L (3.65-5.03) M/mm3 Hgb 8.7 L (11.8-15.2) gm/dl Hct 26.2 L (35.5-45.6) % Plt Count 286 (140-440) K/mm3 Lymph # 1.0 L (1.2-5.4) K/mm3 [place] # 0.3 (0.0-0.8) K/mm3 Eos # 0.2 (0.0-0.4) K/mm3 Baso # 0.0 (0.0-0.1) K/mm3 Comprehensive Metabolic Panel 05/10/18 Range/Units 06:10 Sodium 136 L (137-145) mmol/L Potassium 6.0 H (3.6-5.0) mmol/L Chloride 100.0 (98-107) mmol/L Carbon Dioxide 25 (22-30) mmol/L BUN 10 (9-20) mg/dL Creatinine 0.9 (0.8-1.5) mg/dL Glucose 116 H (75-100) mg/dL Calcium 8.1 L (8.4-10.2) mg/dL AST 52 H (5-40) units/L ALT 36 (7-56) units/L Alkaline Phosphatase 81 (35-129) units/L Total Protein 5.7 L (6.3-8.2) g/dL Albumin 2.5 L (3.9-5) g/dL
--- NOTE | 2018-05-10 13:53 | Progress Note ---
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 His peg tube was noted to be clogged today Hospitalist Physical - Constitutional Vitals: Temp Pulse Resp BP Pulse Ox 98.1 F 59 L 18 126/64 99 05/10/18 09:02 05/10/18 11:41 05/10/18 11:22 05/10/18 11:41 05/10/18 11:41 General appearance: Present: no acute distress - EENT Eyes: Present: PERRL, EOM intact ENT: hearing intact, clear oral mucosa - Neck Neck: Present: supple - Respiratory Respiratory effort: normal Respiratory: negative: CTA - Cardiovascular Rhythm: regular Heart Sounds: Present: S1 & S2 - Extremities Extremities: No edema - Abdominal General gastrointestinal: soft, non-tender, normal bowel sounds, other (peg tube in place) - Neurologic Neurologic: CNII-XII intact Results - Labs CBC & Chem 7: 05/10/18 06:10 05/10/18 06:10 Labs: Laboratory Last Values WBC 4.7 K/mm3 (4.5-11.0) 05/10/18 06:10 RBC 2.94 M/mm3 (3.65-5.03) L 05/10/18 06:10 Hgb 8.7 gm/dl (11.8-15.2) L 05/10/18 06:10 Hct 26.2 % (35.5-45.6) L 05/10/18 06:10 MCV 89 fl (84-94) 05/10/18 06:10 MCH 30 pg (28-32) 05/10/18 06:10 MCHC 33 % (32-34) 05/10/18 06:10 RDW 14.5 % (13.2-15.2) 05/10/18 06:10 Plt Count 286 K/mm3 (140-440) 05/10/18 06:10 Lymph % (Auto) 21.1 % (13.4-35.0) 05/10/18 06:10 [place] % (Auto) 6.8 % (0.0-7.3) 05/10/18 06:10 Eos % (Auto) 4.2 % (0.0-4.3) 05/10/18 06:10 Baso % (Auto) 0.4 % (0.0-1.8) 05/10/18 06:10 Lymph # 1.0 K/mm3 (1.2-5.4) L 05/10/18 06:10 [place] # 0.3 K/mm3 (0.0-0.8) 05/10/18 06:10 Eos # 0.2 K/mm3 (0.0-0.4) 05/10/18 06:10 Baso # 0.0 K/mm3 (0.0-0.1) 05/10/18 06:10 Seg Neutrophils % 67.5 % (40.0-70.0) 05/10/18 06:10 Seg Neutrophils # 3.2 K/mm3 (1.8-7.7) 05/10/18 06:10 PT 14.0 Sec. (12.2-14.9) 05/09/18 05:16 INR 1.02 (0.87-1.13) 05/09/18 05:16 APTT 24.4 Sec. (24.2-36.6) 05/09/18 05:16 D-Dimer 479.07 ng/mlDDU (0-234) H 05/05/18 20:49 Sodium 136 mmol/L (137-145) L 05/10/18 06:10 Potassium 6.0 mmol/L (3.6-5.0) H 05/10/18 06:10 Chloride 100.0 mmol/L (98-107) 05/10/18 06:10 Carbon Dioxide 25 mmol/L (22-30) 05/10/18 06:10 Anion Gap 17 mmol/L 05/10/18 06:10 BUN 10 mg/dL (9-20) 05/10/18 06:10 Creatinine 0.9 mg/dL (0.8-1.5) 05/10/18 06:10 Estimated GFR > 60 ml/min 05/10/18 06:10 BUN/Creatinine Ratio 11 % 05/10/18 06:10 Glucose 116 mg/dL (75-100) H 05/10/18 06:10 POC Glucose 126 (70-105) H 05/10/18 06:07 Calcium 8.1 mg/dL (8.4-10.2) L 05/10/18 06:10 Total Bilirubin 0.20 mg/dL (0.1-1.2) 05/10/18 06:10 AST 52 units/L (5-40) H 05/10/18 06:10 ALT 36 units/L (7-56) 05/10/18 06:10 Alkaline Phosphatase 81 units/L (35-129) 05/10/18 06:10 Total Creatine Kinase 33 units/L (55-170) L 05/06/18 12:11 CK-MB (CK-2) 1.1 ng/mL (0.0-4.0) 05/06/18 12:11 CK-MB (CK-2) Rel Index 3.3 (0-4) 05/06/18 12:11 Troponin T < 0.010 ng/mL (0.00-0.029) 05/06/18 12:11 Total Protein 5.7 g/dL (6.3-8.2) L 05/10/18 06:10 Albumin 2.5 g/dL (3.9-5) L 05/10/18 06:10 Albumin/Globulin Ratio 0.8 % 05/10/18 06:10 Lipase 17 units/L (13-60) 05/05/18 20:49 Blood Type A POSITIVE 05/05/18 20:49 Antibody Screen Negative 05/05/18 20:49 Nutrition/Malnutrition Assess - Dietary Evaluation Nutrition/Malnutrition Findings: Nutrition Notes Start: 05/06/18 10:29 Freq: Status: Active Protocol: Document 05/09/18 14:48 EB (Rec: 05/09/18 15:19 [id number]) Co-Sign 05/09/18 14:48 Nutrition Notes Initial or Follow up Reassessment Current Diagnosis Coronary Artery Disease Hypertension Other Pertinent Diagnosis J-Tube, CABG, Gastric Bypass ( 2008) Current Diet NPO Labs/Tests Reviewed Pertinent Medications Reviewed Height 6 ft 1 in Weight 67.8 kg [place] Body Weight (kg) 83.63 BMI 19.7 Subjective/Other Information Pt not in 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 Per nurse, pt was made NPO last night for [facility]. Pt previously on TF + small amounts of PO intake prior to NPO status. Per nurse, pt tolerating TF. Burn Absent Trauma Absent GI Symptoms Diarrhea #2 Nutrition Diagnosis Altered GI function Diagnosis Progress(for reassessment Continues documentation) #1 Nutrition Diagnosis Malnutrition Diagnosis Progress(for reassessment Continues documentation) Is patient on ventilator? No Is Patient Ambulatory and/or Out of Bed Yes REE-([facility]-ambulatory/OOB) [ 2075.944 [id number]] Calculation Used for Recommendations [facility] Additional Notes PRO needs: 80-101g (1.2-1.5g/ kg) Fluid needs: 1 mL/kcal Nutrition Intervention Change Diet Order: Resume TF Nutrition Support: Jevity 1.2 at 70 mL/hr w/100mL water flush q4h Kcal 2,016 Protein (gm) 96 Fluid (mL) 1,356 Fiber (gm) 30 Goal #1 TF to meet 100% of energy and protein needs. Goal #2 Weight maintenance Anticipated Discharge Needs: Tube Feed Follow-Up By: 05/11/18 Additional Comments F/u: TF resume, PO intakes, and diarrhea cessation
[2018-05-10] MEDS ORDERED: KIONEX PO ONE (16:42)
[2018-05-10] MEDS: AMBIEN PO PRN (23:08)
[2018-05-11] MEDS: DILAUDID IV PRN ×5 (03:27→22:27)
[2018-05-11] MEDS: LOMOTIL PO PRN ×3 (03:28→22:26)
[2018-05-11] MEDS: NACL 0.9% 1000 ML 1,000 ML IV SCH ×3 (03:28→19:42)
[2018-05-11 06:53] LABS: BUN/Creatinine Ratio 9; Blood Urea Nitrogen 8 mg/dL (9-20); Calcium 8.2 mg/dL (8.4-10.2); Hemolysis Index 5
[2018-05-11] MEDS: XANAX PO PRN ×2 (08:00→17:08)
[2018-05-11] MEDS ORDERED: HumuLIN R IV STA ×2 (08:21→17:21)
[2018-05-11] MEDS ORDERED: NACL 0.9% 500 ML 500 ML IV ONE ×2 (08:24→17:23)
[2018-05-11] MEDS ORDERED: D50W (25GM) Syringe IV STA ×2 (08:36→17:21)
[2018-05-11] MEDS: KIONEX PO SCH ×3 (09:42→18:38)
[2018-05-11] MEDS: PLAVIX PO SCH (09:43)
[2018-05-11] MEDS: LOVENOX SUB-Q SCH (09:43)
[2018-05-11] MEDS: LOPRESSOR PO SCH ×2 (09:45→23:46)
[2018-05-11] MEDS: IMDUR PO SCH (09:46)
[2018-05-11] MEDS: NORVASC PO SCH (09:46)
[2018-05-11] MEDS: SODIUM CHLORIDE FLUSH SYRINGE 10 ML IV SCH (09:47)
--- NOTE | 2018-05-11 13:41 | Progress Note ---
Assessment and Plan Assessment and plan: Acute on chronic chest pain -stress test abnormal -s/p LT cardiac cath which showed known severe multi-vessel CAD -medical management recommended Clogged peg tube -GI re-consulted Severe Protein calorie Malnutrition -cont oral and tube feeding when de-clogged -manager copy following Hyperkalemia -cont treatment, will repeat Anemia of chronic disease -H/H stable Acute on chronic abd pain/chronic pain syndrome -stable on PRN narcotics h/o Gastric bypass 2008 -stable h/o Perforated PUD -continue PPI h/o CAD s/p CABG and stent placement -cont home meds HTN -controlled on meds Disp: for d/c when hyperkalemia improves History Interval history: Patient requested for his narcotic adjustment for better pain control Hospitalist Physical - Constitutional Vitals: Temp Pulse Resp BP Pulse Ox 98.2 F 60 20 136/66 99 05/11/18 09:30 05/11/18 10:00 05/11/18 12:21 05/11/18 09:46 05/11/18 10:00 General appearance: Present: no acute distress - EENT Eyes: Present: PERRL, EOM intact ENT: hearing intact, clear oral mucosa - Neck Neck: Present: supple - Respiratory Respiratory effort: normal Respiratory: bilateral: CTA - Cardiovascular Rhythm: regular Heart Sounds: Present: S1 & S2 - Extremities Extremities: No edema - Abdominal General gastrointestinal: soft, tender (mild epigastric), normal bowel sounds, other (Peg tube noted) - Neurologic Neurologic: CNII-XII intact Results - Labs CBC & Chem 7: 05/10/18 06:10 05/11/18 06:07 Labs: Laboratory Last Values WBC 4.7 K/mm3 (4.5-11.0) 05/10/18 06:10 RBC 2.94 M/mm3 (3.65-5.03) L 05/10/18 06:10 Hgb 8.7 gm/dl (11.8-15.2) L 05/10/18 06:10 Hct 26.2 % (35.5-45.6) L 05/10/18 06:10 MCV 89 fl (84-94) 05/10/18 06:10 MCH 30 pg (28-32) 05/10/18 06:10 MCHC 33 % (32-34) 05/10/18 06:10 RDW 14.5 % (13.2-15.2) 05/10/18 06:10 Plt Count 286 K/mm3 (140-440) 05/10/18 06:10 Lymph % (Auto) 21.1 % (13.4-35.0) 05/10/18 06:10 [place] % (Auto) 6.8 % (0.0-7.3) 05/10/18 06:10 Eos % (Auto) 4.2 % (0.0-4.3) 05/10/18 06:10 Baso % (Auto) 0.4 % (0.0-1.8) 05/10/18 06:10 Lymph # 1.0 K/mm3 (1.2-5.4) L 05/10/18 06:10 [place] # 0.3 K/mm3 (0.0-0.8) 05/10/18 06:10 Eos # 0.2 K/mm3 (0.0-0.4) 05/10/18 06:10 Baso # 0.0 K/mm3 (0.0-0.1) 05/10/18 06:10 Seg Neutrophils % 67.5 % (40.0-70.0) 05/10/18 06:10 Seg Neutrophils # 3.2 K/mm3 (1.8-7.7) 05/10/18 06:10 PT 14.0 Sec. (12.2-14.9) 05/09/18 05:16 INR 1.02 (0.87-1.13) 05/09/18 05:16 APTT 24.4 Sec. (24.2-36.6) 05/09/18 05:16 D-Dimer 479.07 ng/mlDDU (0-234) H 05/05/18 20:49 Sodium 138 mmol/L (137-145) 05/11/18 06:07 Potassium 6.4 mmol/L (3.6-5.0) H* 05/11/18 06:07 Chloride 105.1 mmol/L (98-107) 05/11/18 06:07 Carbon Dioxide 26 mmol/L (22-30) 05/11/18 06:07 Anion Gap 13 mmol/L 05/11/18 06:07 BUN 8 mg/dL (9-20) L 05/11/18 06:07 Creatinine 0.9 mg/dL (0.8-1.5) 05/11/18 06:07 Estimated GFR > 60 ml/min 05/11/18 06:07 BUN/Creatinine Ratio 9 % 05/11/18 06:07 Glucose 121 mg/dL (75-100) H 05/11/18 06:07 POC Glucose 126 (70-105) H 05/10/18 06:07 Calcium 8.2 mg/dL (8.4-10.2) L 05/11/18 06:07 Total Bilirubin 0.20 mg/dL (0.1-1.2) 05/10/18 06:10 AST 52 units/L (5-40) H 05/10/18 06:10 ALT 36 units/L (7-56) 05/10/18 06:10 Alkaline Phosphatase 81 units/L (35-129) 05/10/18 06:10 Total Creatine Kinase 33 units/L (55-170) L 05/06/18 12:11 CK-MB (CK-2) 1.1 ng/mL (0.0-4.0) 05/06/18 12:11 CK-MB (CK-2) Rel Index 3.3 (0-4) 05/06/18 12:11 Troponin T < 0.010 ng/mL (0.00-0.029) 05/06/18 12:11 Total Protein 5.7 g/dL (6.3-8.2) L 05/10/18 06:10 Albumin 2.5 g/dL (3.9-5) L 05/10/18 06:10 Albumin/Globulin Ratio 0.8 % 05/10/18 06:10 Lipase 17 units/L (13-60) 05/05/18 20:49 Blood Type A POSITIVE 05/05/18 20:49 Antibody Screen Negative 05/05/18 20:49 Nutrition/Malnutrition Assess - Dietary Evaluation Nutrition/Malnutrition Findings: Nutrition Notes Start: 05/06/18 10:29 Freq: Status: Active Protocol: Document 05/09/18 14:48 EB (Rec: 05/09/18 15:19 [id number]) Co-Sign 05/09/18 14:48 RM Nutrition Notes Initial or Follow up Reassessment Current Diagnosis Coronary Artery Disease Hypertension Other Pertinent Diagnosis J-Tube, CABG, Gastric Bypass ( 2008) Current Diet NPO Labs/Tests Reviewed Pertinent Medications Reviewed Height 6 ft 1 in Weight 67.8 kg [place] Body Weight (kg) 83.63 BMI 19.7 Subjective/Other Information Pt not in room at time of visit (in rn cardiac cath for [facility]). Per nurse, pt was made NPO last night for [facility]. Pt previously on TF + small amounts of PO intake prior to NPO status. Per nurse, pt tolerating TF. Burn Absent Trauma Absent GI Symptoms Diarrhea #2 Nutrition Diagnosis Altered GI function Diagnosis Progress(for reassessment Continues documentation) #1 Nutrition Diagnosis Malnutrition Diagnosis Progress(for reassessment Continues documentation) Is patient on ventilator? No Is Patient Ambulatory and/or Out of Bed Yes [facility] [ 2075.944 NUTR.MSJOOB] Calculation Used [facility]ations [facility] Additional Notes PRO needs: 80-101g (1.2-1.5g/ kg) Fluid needs: 1 mL/kcal Nutrition Intervention Change Diet Order: Resume TF Nutrition Support: Jevity 1.2 at 70 mL/hr w/100mL water flush q4h Kcal 2,016 Protein (gm) 96 Fluid (mL) 1,356 Fiber (gm) 30 Goal #1 TF to meet 100% of energy and protein needs. Goal #2 Weight maintenance Anticipated Discharge Needs: Tube Feed Follow-Up By: 05/11/18 Additional Comments F/u: TF resume, PO intakes, and diarrhea cessation
[2018-05-11] MEDS: PERCOCET 5/325 PO PRN ×2 (14:30→20:35)
[2018-05-11] MEDS: ZOFRAN IV PRN (14:30)
[2018-05-11] MEDS: PROTONIX IV SCH (17:08)
[2018-05-11] MEDS: AMBIEN PO PRN (22:26)
[2018-05-12] MEDS: PERCOCET 5/325 PO PRN (02:22)
[2018-05-12] MEDS: NACL 0.9% 1000 ML 1,000 ML IV SCH ×3 (04:17→22:14)
[2018-05-12] MEDS: SODIUM CHLORIDE FLUSH SYRINGE 10 ML IV SCH ×3 (05:45→22:16)
[2018-05-12] MEDS: DILAUDID IV PRN ×5 (05:45→22:16)
[2018-05-12 07:30] LABS: BUN/Creatinine Ratio 7; Blood Urea Nitrogen 7 mg/dL (9-20); Calcium 7.9 mg/dL (8.4-10.2); Hemolysis Index 2
[2018-05-12] MEDS ORDERED: HumuLIN R IV STA ×2 (09:24→12:05)
[2018-05-12] MEDS ORDERED: D50W (25GM) Syringe IV STA ×2 (09:27→12:05)
[2018-05-12] MEDS: IMDUR PO SCH (10:08)
[2018-05-12] MEDS: LOPRESSOR PO SCH ×2 (10:09→22:15)
[2018-05-12] MEDS: PLAVIX PO SCH (10:09)
[2018-05-12] MEDS: NORVASC PO SCH (10:09)
[2018-05-12] MEDS: LOVENOX SUB-Q SCH (10:09)
[2018-05-12] MEDS: PROTONIX IV SCH (10:09)
[2018-05-12] MEDS: XANAX PO PRN (10:09)
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
[2018-05-12] MEDS ORDERED: KIONEX PO STA (10:58)
--- NOTE | 2018-05-12 15:11 | Gastroenterology Progress Note ---
Addendum entered and electronically signed by SARAH CERVANTES MD 05/12/18 17:22: Patient seen and examined on 05/12/2018. Agree with A/P as stated. J-tube study on 05/06/ with J-tube in good position. J-tube working with flushing well today. Resume tube feeds per nutrition recs. Will sign off. Original Note: Assessment and Plan 1.J-tube malfunction? 2.s/p gastric bypass with anastomotic ulcer repair 3 months ago with J-tube placement 04/23 poor PO intake (J-tube recently exchanged/replaced on 05/05/18 at [facility]) -afebrile -WBC WNL -abd CT w/o acute process or obstruction -J-tube site w/o s/s of infection/bleeding- flushed w/o difficulty upon exam -J-tube study on 05/06 showed J-tube in position -clinically, patient has some mild localized soreness at J-tube site likely from recent replacement. No N/V. -okay to resume feedings per dietary recommendations -continue supportive care -no further recommendations per GI standpoint -will sign off, please call if needed Subjective Date of service: 05/12/18 Principal diagnosis: J-tube malfunction Interval history: GI was consulted back for possible J-tube malfunction due to a report overnight from nursing of J-tube not flushing. This afternoon patient was resting in bed w/o acute distress. Has mild localized soreness at J-tube site. Site w/o s/s of infection or bleeding. Upon exam, J-tube flushed w/o difficultly. Objective - Constitutional Vitals: Temp Pulse Resp BP Pulse Ox 98.0 F 66 20 130/73 98 05/12/18 08:02 05/12/18 13:17 05/12/18 14:21 05/12/18 10:09 05/12/18 10:00 General appearance: no acute distress - Respiratory Respiratory: bilateral: CTA - Cardiovascular Rhythm: regular Heart Sounds: Present: S1 & S2 - Gastrointestinal General gastrointestinal: Present: soft, non-distended, normal bowel sounds, other (+J-tube, +scars from previous surgeries) - Neurologic Neurological: alert and oriented x3 - Labs CBC & Chem 7: 05/10/18 06:10 05/12/18 06:42 Labs: Laboratory Results - last 24 hr 05/11/18 05/12/18 17:46 06:42 Sodium 138 Potassium 5.9 H 6.3 H* Chloride 108.1 H Carbon Dioxide 22 Anion Gap 14 BUN 7 L Creatinine 1.0 Estimated GFR > 60 BUN/Creatinine Ratio 7 Glucose 81 Calcium 7.9 L
[2018-05-12] MEDS: LASIX IV SCH (15:17)
--- NOTE | 2018-05-12 15:19 | Progress Note ---
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 He denies chest pain, shortness of breath or palpitations. Hospitalist Physical - Constitutional Vitals: Temp Pulse Resp BP Pulse Ox 98.0 F 66 20 130/73 98 05/12/18 08:02 05/12/18 13:17 05/12/18 14:21 05/12/18 10:09 05/12/18 10:00 General appearance: Present: no acute distress - EENT Eyes: Present: PERRL, EOM intact ENT: hearing intact, clear oral mucosa - Neck Neck: Present: supple - Respiratory Respiratory effort: normal Respiratory: bilateral: CTA - Cardiovascular Rhythm: regular Heart Sounds: Present: S1 & S2 - Extremities Extremities: No edema - Abdominal General gastrointestinal: soft, non-tender, non-distended, normal bowel sounds, other (PEG tube in place) - Neurologic Neurologic: CNII-XII intact Results - Labs CBC & Chem 7: 05/10/18 06:10 05/12/18 06:42 Labs: Laboratory Last Values WBC 4.7 K/mm3 (4.5-11.0) 05/10/18 06:10 RBC 2.94 M/mm3 (3.65-5.03) L 05/10/18 06:10 Hgb 8.7 gm/dl (11.8-15.2) L 05/10/18 06:10 Hct 26.2 % (35.5-45.6) L 05/10/18 06:10 MCV 89 fl (84-94) 05/10/18 06:10 MCH 30 pg (28-32) 05/10/18 06:10 MCHC 33 % (32-34) 05/10/18 06:10 RDW 14.5 % (13.2-15.2) 05/10/18 06:10 Plt Count 286 K/mm3 (140-440) 05/10/18 06:10 Lymph % (Auto) 21.1 % (13.4-35.0) 05/10/18 06:10 [place] % (Auto) 6.8 % (0.0-7.3) 05/10/18 06:10 Eos % (Auto) 4.2 % (0.0-4.3) 05/10/18 06:10 Baso % (Auto) 0.4 % (0.0-1.8) 05/10/18 06:10 Lymph # 1.0 K/mm3 (1.2-5.4) L 05/10/18 06:10 [place] # 0.3 K/mm3 (0.0-0.8) 05/10/18 06:10 Eos # 0.2 K/mm3 (0.0-0.4) 05/10/18 06:10 Baso # 0.0 K/mm3 (0.0-0.1) 05/10/18 06:10 Seg Neutrophils % 67.5 % (40.0-70.0) 05/10/18 06:10 Seg Neutrophils # 3.2 K/mm3 (1.8-7.7) 05/10/18 06:10 PT 14.0 Sec. (12.2-14.9) 05/09/18 05:16 INR 1.02 (0.87-1.13) 05/09/18 05:16 APTT 24.4 Sec. (24.2-36.6) 05/09/18 05:16 D-Dimer 479.07 ng/mlDDU (0-234) H 05/05/18 20:49 Sodium 138 mmol/L (137-145) 05/12/18 06:42 Potassium 6.3 mmol/L (3.6-5.0) H* 05/12/18 06:42 Chloride 108.1 mmol/L (98-107) H 05/12/18 06:42 Carbon Dioxide 22 mmol/L (22-30) 05/12/18 06:42 Anion Gap 14 mmol/L 05/12/18 06:42 BUN 7 mg/dL (9-20) L 05/12/18 06:42 Creatinine 1.0 mg/dL (0.8-1.5) 05/12/18 06:42 Estimated GFR > 60 ml/min 05/12/18 06:42 BUN/Creatinine Ratio 7 % 05/12/18 06:42 Glucose 81 mg/dL (75-100) 05/12/18 06:42 POC Glucose 126 (70-105) H 05/10/18 06:07 Calcium 7.9 mg/dL (8.4-10.2) L 05/12/18 06:42 Total Bilirubin 0.20 mg/dL (0.1-1.2) 05/10/18 06:10 AST 52 units/L (5-40) H 05/10/18 06:10 ALT 36 units/L (7-56) 05/10/18 06:10 Alkaline Phosphatase 81 units/L (35-129) 05/10/18 06:10 Total Creatine Kinase 33 units/L (55-170) L 05/06/18 12:11 CK-MB (CK-2) 1.1 ng/mL (0.0-4.0) 05/06/18 12:11 CK-MB (CK-2) Rel Index 3.3 (0-4) 05/06/18 12:11 Troponin T < 0.010 ng/mL (0.00-0.029) 05/06/18 12:11 Total Protein 5.7 g/dL (6.3-8.2) L 05/10/18 06:10 Albumin 2.5 g/dL (3.9-5) L 05/10/18 06:10 Albumin/Globulin Ratio 0.8 % 05/10/18 06:10 Lipase 17 units/L (13-60) 05/05/18 20:49 Blood Type A POSITIVE 05/05/18 20:49 Antibody Screen Negative 05/05/18 20:49 Nutrition/Malnutrition Assess - Dietary Evaluation Nutrition/Malnutrition Findings: Nutrition Notes Start: 05/06/18 10:29 Freq: Status: Active Protocol: Document 05/11/18 13:29 ER (Rec: 05/11/18 13:46 ER [id number]) Co-Sign 05/11/18 13:29 LP Nutrition Notes Initial or Follow up Reassessment Current Diagnosis Coronary Artery Disease Hypertension Other Pertinent Diagnosis J-Tube, CABG, Gastric Bypass ( 2008) Current Diet Full Liquid w/low potassium Labs/Tests K: 6.4 Pertinent Medications Reviewed Height 6 ft 1 in Weight 67.8 kg [place] Body Weight (kg) 83.63 BMI 19.7 Subjective/Other Information Pt. stated his PEJ tube was leaking yesterday and the TF was stopped. TF was at goal of 70mL/hr. Pt. is still able to consume liquids and soft foods. Pt. diarrhea seems to be under control with medication. Pt. agreeable to Ensure Clear BID until TF is resumed per GI doctor. Burn Absent Trauma Absent #2 Nutrition Diagnosis Altered GI function Diagnosis Progress(for reassessment Continues documentation) #1 Nutrition Diagnosis Malnutrition Diagnosis Progress(for reassessment Continues documentation) Is patient on ventilator? No Is Patient Ambulatory and/or Out of Bed Yes REE-([facility]-ambulatory/OOB) [ 2075.944 NUTR.MSJOOB] Calculation Used for Recommendations [facility] Additional Notes PRO needs: 80-101g (1.2-1.5g/ kg) Fluid needs: 1 mL/kcal Nutrition Intervention Change Diet Order: Resume TF when medically feasible Continue full liquid diet Nutrition Support: Change to: Jevity 1.2 at 50 mL /hr w/100mL water flush q4h Kcal 1,440 Protein (gm) 67 Fluid (mL) 968 Fiber (gm) 22 Add Supplement/Snack (indicate name/kcal Ensure Clear BID /protein ) Provides kCal: 480 Provides Protein (gm) 16 Goal #1 Pt. to meet at least 75% of energy and protein needs through PO and ONS intakes Goal #2 Resume TF Goal #3 Weight maintenance Anticipated Discharge Needs: Tube Feed and full liquid Follow-Up By: 05/13/18 Additional Comments F/U: TF resume, PO and ONS intakes
[2018-05-12] MEDS ORDERED: CALCIUM GLUCONATE 1,000 MG in NACL 0.9% 100 ML IV ONE (21:46)
[2018-05-12] MEDS ORDERED: KIONEX PO ONE (22:13)
[2018-05-12] MEDS: AMBIEN PO PRN (22:45)
[2018-05-13] MEDS: ZOFRAN IV PRN ×2 (02:57→12:54)
[2018-05-13] MEDS: DILAUDID IV PRN ×4 (02:58→20:18)
[2018-05-13] MEDS: XANAX PO PRN ×2 (05:25→14:37)
[2018-05-13] MEDS: NACL 0.9% 1000 ML 1,000 ML IV SCH ×2 (06:23→17:19)
[2018-05-13] MEDS: LASIX IV SCH (06:23)
[2018-05-13 06:36] LABS: Basophils % (Auto) 0.9 % (0.0-1.8); Eosinophils # (Auto) 0.2 K/mm3 (0.0-0.4); Eosinophils % (Auto) 5.5 % (0.0-4.3); Hematocrit 25.5 % (35.5-45.6); Hemoglobin 8.5 gm/dl (11.8-15.2); Lymphocytes # (Auto) 0.8 K/mm3 (1.2-5.4); Lymphocytes % (Auto) 19.1 % (13.4-35.0); Mean Corpuscular HGB Conc 33 % (32-34); Mean Corpuscular Volume 90 fl (84-94); Monocytes # (Auto) 0.3 K/mm3 (0.0-0.8); Platelet Count 265 K/mm3 (140-440); Red Blood Count 2.85 M/mm3 (3.65-5.03); Red Cell Distribution Width 14.6 % (13.2-15.2)
[2018-05-13 06:54] LABS: BUN/Creatinine Ratio 6; Blood Urea Nitrogen 6 mg/dL (9-20); Calcium 8.1 mg/dL (8.4-10.2); Hemolysis Index 4
[2018-05-13] MEDS: SODIUM CHLORIDE FLUSH SYRINGE 10 ML IV SCH ×3 (10:00→22:42)
[2018-05-13] MEDS: PERCOCET 5/325 PO PRN ×3 (10:13→22:40)
[2018-05-13] MEDS: LOVENOX SUB-Q SCH (10:14)
[2018-05-13] MEDS: PROTONIX IV SCH (10:14)
[2018-05-13] MEDS: LOPRESSOR PO SCH ×2 (10:14→22:41)
--- NOTE | 2018-05-13 10:22 | Progress Note ---
Assessment and Plan Assessment hyperkalemia Unstable angina Pain around J-tube site Coronary artery disease History of PE, duodenal ulcer rupture Plan low k diet k is better today if supplements needed, must be low k--ie nepro kayexalayte prn rule out RTA strict i/os Subjective Date of service: 05/13/18 Principal diagnosis: J-tube malfunction Interval history: resting in bed Objective - Exam Narrative Exam: - General Limitations: No Limitations General appearance: alert, in no apparent distress - Head Head exam: Present: atraumatic, normocephalic - Eye Eye exam: Present: normal appearance - ENT ENT exam: Present: mucous membranes moist - Neck Neck exam: Present: normal inspection - Respiratory Respiratory exam: Present: normal lung sounds bilaterally. Absent: respiratory distress - Cardiovascular Cardiovascular Exam: Present: regular rate, normal rhythm - GI/Abdominal GI/Abdominal exam: Present: soft, tenderness. Absent: distended - Extremities Exam Extremities exam: Present: normal inspection - Neurological Exam Neurological exam: Present: alert, oriented X3 - Psychiatric Psychiatric exam: Present: normal affect, normal mood - Skin Skin exam: Present: warm, dry, intact, normal color - Vital Signs Vital signs: Vital Signs - 12hr 05/12/18 05/13/18 05/13/18 23:37 03:00 03:17 Temperature 98.3 F 98.5 F Pulse Rate 61 58 L 58 L Respiratory 17 17 Rate Blood Pressure 123/72 124/71 O2 Sat by Pulse 97 97 Oximetry 05/13/18 08:04 Temperature 98.2 F Pulse Rate Respiratory 18 Rate Blood Pressure 114/70 O2 Sat by Pulse Oximetry - Lab 05/13/18 06:06 05/13/18 06:06 Most recent lab results Calcium 8.1 mg/dL (8.4-10.2) L 05/13/18 06:06 Medications & Allergies - Medications Allergies/Adverse Reactions: Allergies NSAIDS (Non-Steroidal Anti-Inflamma Allergy (Verified 05/06/18 02:49) Bleeding lisinopril Adverse Reaction (Verified 05/06/18 02:49) Unknown Home Medications: Home Medications Medication Instructions Recorded Confirmed Last Taken Type Ambien 10 mg PO HS 05/06/18 05/06/18 Unknown History Losartan 100 mg PO DAILY 05/06/18 05/06/18 Unknown History Simvastatin 40 mg PO HS 05/06/18 05/06/18 Unknown History Xanax 1 mg PO TID PRN 05/06/18 05/06/18 Unknown History Active Medications: Generic Name Dose Route Start Last Admin Trade Name Freq PRN Reason Stop Dose Admin Acetaminophen 650 mg 05/06/18 06:42 Tylenol PO Q4H PRN Pain MILD(1-3)/Fever >100.5/DUARTE Alprazolam 1 mg 05/06/18 06:56 05/13/18 05:25 Xanax PO 1 mg TID PRN Administration Anxiety Amlodipine Besylate 2.5 mg 05/08/18 10:00 05/12/18 10:09 Norvasc PO 2.5 mg QDAY PIERO Administration Lipase/Protease/Amylase 1 each 05/06/18 12:00 Pancrefaye Guzman 10,500 Unit FEEDTUBE PRN PRN For Clogged Feeding Tube Atorvastatin Calcium 40 mg 05/07/18 22:00 05/12/18 22:15 Lipitor PO 40 mg QHS PIERO Administration Clopidogrel Bisulfate 75 mg 05/08/18 10:00 05/12/18 10:09 Plavix PO 75 mg QDAY PIERO Administration Enoxaparin Sodium 40 mg 05/08/18 10:00 05/13/18 10:14 Lovenox SUB-Q 40 mg QDAY@1000 PIERO Administration Furosemide 40 mg 05/12/18 11:00 05/13/18 06:23 Lasix IV 40 mg DAILY@0600 PIERO Administration Hydromorphone HCl 1 mg 05/06/18 17:49 05/13/18 08:44 Dilaudid IV 1 mg Q4H PRN Administration Pain , Severe (7-10) Sodium Chloride 1,000 mls @ 100 mls/hr 05/09/18 16:00 05/13/18 06:23 Nacl 0.9% 1000 Ml IV 100 mls/hr DIRECT PIERO Administration Isosorbide Mononitrate 30 mg 05/11/18 10:00 05/12/18 10:08 Imdur PO 30 mg QDAY PIERO Administration Metoprolol Tartrate 12.5 mg 05/07/18 22:00 05/13/18 10:14 Lopressor PO 12.5 mg BID PIERO Administration Ondansetron HCl 4 mg 05/06/18 06:42 05/13/18 02:57 Zofran IV 4 mg Q8H PRN Administration Nausea And Vomiting Oxycodone/Acetaminophen 2 tab 05/11/18 11:00 05/13/18 10:13 Percocet 5/325 PO 2 tab Q4H PRN Administration Pain, Moderate (4-6) Pantoprazole Sodium 40 mg 05/11/18 14:00 05/13/18 10:14 Protonix IV 40 mg QDAY PIERO Administration Simple Syrup 15 ml 05/06/18 12:00 Simple Syrup FEEDTUBE PRN PRN Hypoglycemia Simple Syrup 30 ml 05/06/18 12:00 Simple Syrup FEEDTUBE PRN PRN Hypoglycemia Sodium Bicarbonate 325 mg 05/06/18 12:00 Sodium Bicarbonate FEEDTUBE PRN PRN For Clogged Feeding Tube Sodium Chloride 10 ml 05/06/18 10:00 05/12/18 22:16 Sodium Chloride Flush Syringe 10 Ml IV 10 ml BID PIERO Administration Sodium Chloride 10 ml 05/06/18 06:42 Sodium Chloride Flush Syringe 10 Ml IV PRN PRN LINE FLUSH Sodium Polystyrene Sulfonate 30 gm 05/13/18 10:20 Kionex PO 05/13/18 10:21 ONCE ONE Zolpidem Tartrate 10 mg 05/07/18 00:00 05/12/18 22:45 Ambien PO 10 mg QHS PRN Administration Insomnia
[2018-05-13] MEDS ORDERED: KIONEX PO ONE ×2 (10:28→11:20)
[2018-05-13] MEDS ORDERED: SIMPLE SYRUP FEEDTUBE PRN ×2 (11:01)
[2018-05-13] MEDS ORDERED: SODIUM BICARBONATE FEEDTUBE PRN (11:01)
[2018-05-13] MEDS ORDERED: PANCREAZE DR 10,500 UNIT FEEDTUBE PRN (11:01)
[2018-05-13] MEDS: PLAVIX PO SCH (12:42)
[2018-05-13] MEDS: IMDUR PO SCH (12:44)
[2018-05-13] MEDS: NORVASC PO SCH (12:45)
--- NOTE | 2018-05-13 14:16 | Progress Note ---
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 His tube feeding is to be restarted today. Hospitalist Physical - Constitutional Vitals: Temp Pulse Resp BP Pulse Ox 98.2 F 58 L 18 114/70 97 05/13/18 08:04 05/13/18 03:17 05/13/18 08:04 05/13/18 08:04 05/13/18 03:17 General appearance: Present: no acute distress - EENT Eyes: Present: PERRL, EOM intact ENT: hearing intact, clear oral mucosa - Neck Neck: Present: supple - Respiratory Respiratory effort: normal Respiratory: bilateral: CTA - Cardiovascular Rhythm: regular Heart Sounds: Present: S1 & S2 - Extremities Extremities: No edema - Abdominal General gastrointestinal: soft, non-tender, non-distended, normal bowel sounds, other (PEG tube noted) - Neurologic Neurologic: CNII-XII intact Results - Labs CBC & Chem 7: 05/13/18 06:06 05/13/18 06:06 Labs: Laboratory Last Values WBC 4.3 K/mm3 (4.5-11.0) L 05/13/18 06:06 RBC 2.85 M/mm3 (3.65-5.03) L 05/13/18 06:06 Hgb 8.5 gm/dl (11.8-15.2) L 05/13/18 06:06 Hct 25.5 % (35.5-45.6) L 05/13/18 06:06 MCV 90 fl (84-94) 05/13/18 06:06 MCH 30 pg (28-32) 05/13/18 06:06 MCHC 33 % (32-34) 05/13/18 06:06 RDW 14.6 % (13.2-15.2) 05/13/18 06:06 Plt Count 265 K/mm3 (140-440) 05/13/18 06:06 Lymph % (Auto) 19.1 % (13.4-35.0) 05/13/18 06:06 [place] % (Auto) 7.0 % (0.0-7.3) 05/13/18 06:06 Eos % (Auto) 5.5 % (0.0-4.3) H 05/13/18 06:06 Baso % (Auto) 0.9 % (0.0-1.8) 05/13/18 06:06 Lymph # 0.8 K/mm3 (1.2-5.4) L 05/13/18 06:06 [place] # 0.3 K/mm3 (0.0-0.8) 05/13/18 06:06 Eos # 0.2 K/mm3 (0.0-0.4) 05/13/18 06:06 Baso # 0.0 K/mm3 (0.0-0.1) 05/13/18 06:06 Seg Neutrophils % 67.5 % (40.0-70.0) 05/13/18 06:06 Seg Neutrophils # 2.9 K/mm3 (1.8-7.7) 05/13/18 06:06 PT 14.0 Sec. (12.2-14.9) 05/09/18 05:16 INR 1.02 (0.87-1.13) 05/09/18 05:16 APTT 24.4 Sec. (24.2-36.6) 05/09/18 05:16 D-Dimer 479.07 ng/mlDDU (0-234) H 05/05/18 20:49 Sodium 139 mmol/L (137-145) 05/13/18 06:06 Potassium 5.7 mmol/L (3.6-5.0) H 05/13/18 06:06 Chloride 107.4 mmol/L (98-107) H 05/13/18 06:06 Carbon Dioxide 23 mmol/L (22-30) 05/13/18 06:06 Anion Gap 14 mmol/L 05/13/18 06:06 BUN 6 mg/dL (9-20) L 05/13/18 06:06 Creatinine 1.0 mg/dL (0.8-1.5) 05/13/18 06:06 Estimated GFR > 60 ml/min 05/13/18 06:06 BUN/Creatinine Ratio 6 % 05/13/18 06:06 Glucose 93 mg/dL (75-100) 05/13/18 06:06 POC Glucose 126 (70-105) H 05/10/18 06:07 Calcium 8.1 mg/dL (8.4-10.2) L 05/13/18 06:06 Total Bilirubin 0.20 mg/dL (0.1-1.2) 05/10/18 06:10 AST 52 units/L (5-40) H 05/10/18 06:10 ALT 36 units/L (7-56) 05/10/18 06:10 Alkaline Phosphatase 81 units/L (35-129) 05/10/18 06:10 Total Creatine Kinase 33 units/L (55-170) L 05/06/18 12:11 CK-MB (CK-2) 1.1 ng/mL (0.0-4.0) 05/06/18 12:11 CK-MB (CK-2) Rel Index 3.3 (0-4) 05/06/18 12:11 Troponin T < 0.010 ng/mL (0.00-0.029) 05/06/18 12:11 Total Protein 5.7 g/dL (6.3-8.2) L 05/10/18 06:10 Albumin 2.5 g/dL (3.9-5) L 05/10/18 06:10 Albumin/Globulin Ratio 0.8 % 05/10/18 06:10 Lipase 17 units/L (13-60) 05/05/18 20:49 Blood Type A POSITIVE 05/05/18 20:49 Antibody Screen Negative 05/05/18 20:49 Nutrition/Malnutrition Assess - Dietary Evaluation Nutrition/Malnutrition Findings: Nutrition Notes Start: 05/06/18 10:29 Freq: Status: Active Protocol: Document 05/13/18 11:11 ER (Rec: 05/13/18 11:23 ER [id number]) Co-Sign 05/13/18 11:11 LP Nutrition Notes Initial or Follow up Reassessment Current Diagnosis Coronary Artery Disease Hypertension Other Pertinent Diagnosis J-Tube, CABG, Gastric Bypass ( 2008) Current Diet Renal Diet Labs/Tests 5.7 Pertinent Medications Lasjustin Huntx Height 6 ft 1 in Weight 67.8 kg [place] Body Weight (kg) 83.63 BMI 19.7 Subjective/Other Information Pt. tolerating full liquid diet and ONS. Pt. put on renal diet for high potassium levels at breakfast, pt. unable to eat solid food on tray. Discussed TF options w/ pt. Pt. would like to try Jevity 1.2 again and continue full liquid diet and Ensure clear. Percent of energy/protein needs met: 50% energy and protein needs on full liquid diet w/Ensure Clear Burn Absent Trauma Absent #2 Nutrition Diagnosis Altered GI function Diagnosis Progress(for reassessment Continues documentation) #1 Nutrition Diagnosis Malnutrition Diagnosis Progress(for reassessment Continues documentation) Is patient on ventilator? No Is Patient Ambulatory and/or Out of Bed Yes REE-([place]-ambulatory/OOB) [ 2075.944 NUTR.[id number]] Calculation Used for Recommendations [place] [facility] Additional Notes PRO needs: 80-101g (1.2-1.5g/ kg) Fluid needs: 1 mL/kcal Nutrition Intervention Change Diet Order: TF - Jevity 65 mL/hr + Full liquid diet and Ensure clear BID Nutrition Support: Change to: Jevity 1.2 at 65 mL /hr w/100mL water flush q4h Kcal 1,872 Protein (gm) 87 Fluid (mL) 1,259 Fiber (gm) 28 Add Supplement/Snack (indicate name/kcal Ensure Clear BID /protein ) Provides kCal: 480 Provides Protein (gm) 16 Goal #1 TF and PO intakes to meet 100% of energy and protein needs. Goal #2 TF tolerance Goal #3 Weight maintenance Anticipated Discharge Needs: Tube Feed and full liquid Follow-Up By: 05/16/18 Additional Comments f/u: New TF, PO and ONS intakes
[2018-05-13] MEDS: AMBIEN PO PRN (22:40)
[2018-05-14] MEDS: XANAX PO PRN ×3 (01:17→18:11)
[2018-05-14] MEDS: DILAUDID IV PRN ×5 (01:17→19:59)
[2018-05-14] MEDS: NACL 0.9% 1000 ML 1,000 ML IV SCH (02:43)
[2018-05-14] MEDS: PERCOCET 5/325 PO PRN ×3 (02:48→18:11)
[2018-05-14] MEDS: LASIX IV SCH (05:40)
[2018-05-14 06:51] LABS: BUN/Creatinine Ratio 7; Blood Urea Nitrogen 8 mg/dL (9-20); Calcium 8.2 mg/dL (8.4-10.2); Hemolysis Index 34
[2018-05-14] MEDS: NORVASC PO SCH (09:14)
[2018-05-14] MEDS: IMDUR PO SCH (09:17)
[2018-05-14] MEDS: LOPRESSOR PO SCH (09:17)
[2018-05-14] MEDS: PLAVIX PO SCH (09:17)
[2018-05-14] MEDS: LOVENOX SUB-Q SCH (09:19)
[2018-05-14] MEDS: PREVACID SOLUTAB FEEDTUBE SCH (09:20)
[2018-05-14] MEDS: SODIUM CHLORIDE FLUSH SYRINGE 10 ML IV SCH ×2 (10:22→21:25)
[2018-05-14] MEDS ORDERED: HumuLIN R IV ONE (10:28)
[2018-05-14] MEDS ORDERED: D50W (25GM) Vial IV ONE (10:28)
[2018-05-14] MEDS ORDERED: D50W (25GM) Syringe IV ONE (11:00)
[2018-05-14] MEDS: ZOFRAN IV PRN (12:37)
[2018-05-14] MEDS: KIONEX PO SCH ×3 (12:38→23:28)
--- NOTE | 2018-05-14 15:05 | Progress Note ---
Assessment and Plan Assessment * Hyperkalemia * Unstable angina * Pain around J-tube site * Coronary artery disease * History of PE, duodenal ulcer rupture Plan * K elevated to 5.9 today - note order for kayexelate * K restricted diet/nutrition supplements * Avoid ARB at discharge * Avoid potential nephrotoxins * Encourage hydration Subjective Date of service: 05/14/18 Principal diagnosis: J-tube malfunction Interval history: Patient has no complaints Objective - Vital Signs Vital signs: Vital Signs - 12hr 05/14/18 05/14/18 05/14/18 05:30 08:32 08:34 Temperature 97.7 F 97.5 F L Pulse Rate 53 L 59 L Respiratory 20 18 Rate Blood Pressure 125/38 157/75 Blood Pressure [Left] O2 Sat by Pulse 99 100 Oximetry 05/14/18 05/14/18 11:44 11:47 Temperature 98.0 F Pulse Rate 55 L 58 L Respiratory 18 Rate Blood Pressure 81/44 Blood Pressure 93/59 [Left] O2 Sat by Pulse 99 Oximetry - General Appearance General appearance: well-developed EENT: ATNC Respiratory: Present: Clear to Ascultation Cardiology: regular, S1S2 Gastrointestinal: normoactive bowel sounds, no tenderness, no distended Integumentary: no rash, warm and dry Musculoskeletal: other (no edema) Psychiatric: cooperative - Lab 05/13/18 06:06 05/14/18 05:44 Most recent lab results Calcium 8.2 mg/dL (8.4-10.2) L 05/14/18 05:44 Medications & Allergies - Medications Allergies/Adverse Reactions: Allergies NSAIDS (Non-Steroidal Anti-Inflamma Allergy (Verified 05/06/18 02:49) Bleeding lisinopril Adverse Reaction (Verified 05/06/18 02:49) Unknown Home Medications: Home Medications Medication Instructions Recorded Confirmed Last Taken Type Ambien 10 mg PO HS 05/06/18 05/06/18 Unknown History Losartan 100 mg PO DAILY 05/06/18 05/06/18 Unknown History Simvastatin 40 mg PO HS 05/06/18 05/06/18 Unknown History Xanax 1 mg PO TID PRN 05/06/18 05/06/18 Unknown History Active Medications: Generic Name Dose Route Start Last Admin Trade Name Freq PRN Reason Stop Dose Admin Acetaminophen 650 mg 05/06/18 06:42 Tylenol PO Q4H PRN Pain MILD(1-3)/Fever >100.5/DUARTE Alprazolam 1 mg 05/06/18 06:56 05/14/18 09:13 Xanax PO 1 mg TID PRN Administration Anxiety Amlodipine Besylate 5 mg 05/14/18 10:29 Norvasc PO QDAY [facility] Lipase/Protease/Amylase 1 each 05/13/18 11:01 Pancrefaye Guzman 10,500 Unit FEEDTUBE PRN PRN For Clogged Feeding Tube Atorvastatin Calcium 40 mg 05/07/18 22:00 05/13/18 22:40 Lipitor PO 40 mg QHS PIERO Administration Carvedilol 3.125 mg 05/14/18 22:00 Coreg PO BID [facility] Clopidogrel Bisulfate 75 mg 05/08/18 10:00 05/14/18 09:17 Plavix PO 75 mg QDAY [facility] Administration Enoxaparin Sodium 40 mg 05/08/18 10:00 05/14/18 09:19 Lovenox SUB-Q 40 mg QDAY@1000 [facility] Administration Furosemide 40 mg 05/12/18 11:00 05/14/18 05:40 Lasix IV 40 mg DAILY@0600 [facility] Administration Hydromorphone HCl 1 mg 05/06/18 17:49 05/14/18 14:07 Dilaudid IV 1 mg Q4H PRN Administration Pain , Severe (7-10) Isosorbide Mononitrate 30 mg 05/11/18 10:00 05/14/18 09:17 Imdur PO 30 mg QDAY [facility] Administration Lansoprazole 30 mg 05/14/18 10:00 05/14/18 09:20 Prevacid Solutab FEEDTUBE 30 mg QDAY [facility] Administration Ondansetron HCl 4 mg 05/06/18 06:42 05/14/18 12:37 Zofran IV 4 mg Q8H PRN Administration Nausea And Vomiting Oxycodone/Acetaminophen 2 tab 05/11/18 11:00 05/14/18 10:21 Percocet 5/325 PO 2 tab Q4H PRN Administration Pain, Moderate (4-6) Simple Syrup 15 ml 05/13/18 11:01 Simple Syrup FEEDTUBE PRN PRN Hypoglycemia Simple Syrup 30 ml 05/13/18 11:01 Simple Syrup FEEDTUBE PRN PRN Hypoglycemia Sodium Bicarbonate 325 mg 05/13/18 11:01 Sodium Bicarbonate FEEDTUBE PRN PRN For Clogged Feeding Tube Sodium Chloride 10 ml 05/06/18 10:00 05/14/18 10:22 Sodium Chloride Flush Syringe 10 Ml IV 10 ml BID PIERO Administration Sodium Chloride 10 ml 05/06/18 06:42 Sodium Chloride Flush Syringe 10 Ml IV PRN PRN LINE FLUSH Sodium Polystyrene Sulfonate 30 gm 05/14/18 12:00 05/14/18 12:38 Kionex PO 05/15/18 00:01 30 gm Q6HR PIERO Administration Zolpidem Tartrate 10 mg 05/07/18 00:00 05/13/18 22:40 Ambien PO 10 mg QHS PRN Administration Insomnia
--- NOTE | 2018-05-14 15:39 | Progress Note ---
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 However his potassium level continues to fluctuate. Hospitalist Physical - Constitutional Vitals: Temp Pulse Resp BP Pulse Ox 98.0 F 58 L 18 93/59 99 05/14/18 11:44 05/14/18 11:47 05/14/18 11:47 05/14/18 11:47 05/14/18 11:44 General appearance: Present: no acute distress - EENT Eyes: Present: PERRL, EOM intact ENT: hearing intact, clear oral mucosa - Neck Neck: Present: supple - Respiratory Respiratory effort: normal Respiratory: bilateral: CTA - Cardiovascular Rhythm: regular Heart Sounds: Present: S1 & S2 - Extremities Extremities: No edema - Abdominal General gastrointestinal: soft, tender (chronic epigastric), non-distended, normal bowel sounds - Neurologic Neurologic: CNII-XII intact Results - Labs CBC & Chem 7: 05/13/18 06:06 05/14/18 05:44 Labs: Laboratory Last Values WBC 4.3 K/mm3 (4.5-11.0) L 05/13/18 06:06 RBC 2.85 M/mm3 (3.65-5.03) L 05/13/18 06:06 Hgb 8.5 gm/dl (11.8-15.2) L 05/13/18 06:06 Hct 25.5 % (35.5-45.6) L 05/13/18 06:06 MCV 90 fl (84-94) 05/13/18 06:06 MCH 30 pg (28-32) 05/13/18 06:06 MCHC 33 % (32-34) 05/13/18 06:06 RDW 14.6 % (13.2-15.2) 05/13/18 06:06 Plt Count 265 K/mm3 (140-440) 05/13/18 06:06 Lymph % (Auto) 19.1 % (13.4-35.0) 05/13/18 06:06 [place] % (Auto) 7.0 % (0.0-7.3) 05/13/18 06:06 Eos % (Auto) 5.5 % (0.0-4.3) H 05/13/18 06:06 Baso % (Auto) 0.9 % (0.0-1.8) 05/13/18 06:06 Lymph # 0.8 K/mm3 (1.2-5.4) L 05/13/18 06:06 [place] # 0.3 K/mm3 (0.0-0.8) 05/13/18 06:06 Eos # 0.2 K/mm3 (0.0-0.4) 05/13/18 06:06 Baso # 0.0 K/mm3 (0.0-0.1) 05/13/18 06:06 Seg Neutrophils % 67.5 % (40.0-70.0) 05/13/18 06:06 Seg Neutrophils # 2.9 K/mm3 (1.8-7.7) 05/13/18 06:06 PT 14.0 Sec. (12.2-14.9) 05/09/18 05:16 INR 1.02 (0.87-1.13) 05/09/18 05:16 APTT 24.4 Sec. (24.2-36.6) 05/09/18 05:16 D-Dimer 479.07 ng/mlDDU (0-234) H 05/05/18 20:49 Sodium 136 mmol/L (137-145) L 05/14/18 05:44 Potassium 5.9 mmol/L (3.6-5.0) H 05/14/18 05:44 Chloride 105.0 mmol/L (98-107) 05/14/18 05:44 Carbon Dioxide 19 mmol/L (22-30) L 05/14/18 05:44 Anion Gap 18 mmol/L 05/14/18 05:44 BUN 8 mg/dL (9-20) L 05/14/18 05:44 Creatinine 1.1 mg/dL (0.8-1.5) 05/14/18 05:44 Estimated GFR > 60 ml/min 05/14/18 05:44 BUN/Creatinine Ratio 7 % 05/14/18 05:44 Glucose 86 mg/dL (75-100) 05/14/18 05:44 POC Glucose 126 (70-105) H 05/10/18 06:07 Calcium 8.2 mg/dL (8.4-10.2) L 05/14/18 05:44 Total Bilirubin 0.20 mg/dL (0.1-1.2) 05/10/18 06:10 AST 52 units/L (5-40) H 05/10/18 06:10 ALT 36 units/L (7-56) 05/10/18 06:10 Alkaline Phosphatase 81 units/L (35-129) 05/10/18 06:10 Total Creatine Kinase 33 units/L (55-170) L 05/06/18 12:11 CK-MB (CK-2) 1.1 ng/mL (0.0-4.0) 05/06/18 12:11 CK-MB (CK-2) Rel Index 3.3 (0-4) 05/06/18 12:11 Troponin T < 0.010 ng/mL (0.00-0.029) 05/06/18 12:11 Total Protein 5.7 g/dL (6.3-8.2) L 05/10/18 06:10 Albumin 2.5 g/dL (3.9-5) L 05/10/18 06:10 Albumin/Globulin Ratio 0.8 % 05/10/18 06:10 Lipase 17 units/L (13-60) 05/05/18 20:49 Blood Type A POSITIVE 05/05/18 20:49 Antibody Screen Negative 05/05/18 20:49 Nutrition/Malnutrition Assess - Dietary Evaluation Nutrition/Malnutrition Findings: Nutrition Notes Start: 05/06/18 10:29 Freq: Status: Active Protocol: Document 05/13/18 11:11 ER (Rec: 05/13/18 11:23 ER [id number]) Co-Sign 05/13/18 11:11 LP Nutrition Notes Initial or Follow up Reassessment Current Diagnosis Coronary Artery Disease Hypertension Other Pertinent Diagnosis J-Tube, CABG, Gastric Bypass ( 2008) Current Diet Renal Diet Labs/Tests 5.7 Pertinent Medications Chelsey Berumen Height 6 ft 1 in Weight 67.8 kg [place] Body Weight (kg) 83.63 BMI 19.7 Subjective/Other Information Pt. tolerating full liquid diet and ONS. Pt. put on renal diet for high potassium levels at breakfast, pt. unable to eat solid food on tray. Discussed TF options w/ pt. Pt. would like to try Jevity 1.2 again and continue full liquid diet and Ensure clear. Percent of energy/protein needs met: 50% energy and protein needs on full liquid diet w/Ensure Clear Burn Absent Trauma Absent #2 Nutrition Diagnosis Altered GI function Diagnosis Progress(for reassessment Continues documentation) #1 Nutrition Diagnosis Malnutrition Diagnosis Progress(for reassessment Continues documentation) Is patient on ventilator? No Is Patient Ambulatory and/or Out of Bed Yes REE-([place]-ambulatory/OOB) [ 2075.944 NUTR.MSJOOB] Calculation Used for Recommendations [place] or Additional Notes PRO needs: 80-101g (1.2-1.5g/ kg) Fluid needs: 1 mL/kcal Nutrition Intervention Change Diet Order: TF - Jevity 65 mL/hr + Full liquid diet and Ensure clear BID Nutrition Support: Change to: Jevity 1.2 at 65 mL /hr w/100mL water flush q4h Kcal 1,872 Protein (gm) 87 Fluid (mL) 1,259 Fiber (gm) 28 Add Supplement/Snack (indicate name/kcal Ensure Clear BID /protein ) Provides kCal: 480 Provides Protein (gm) 16 Goal #1 TF and PO intakes to meet 100% of energy and protein needs. Goal #2 TF tolerance Goal #3 Weight maintenance Anticipated Discharge Needs: Tube Feed and full liquid Follow-Up By: 05/16/18 Additional Comments f/u: New TF, PO and ONS intakes
[2018-05-14] MEDS: COREG PO SCH (21:24)
[2018-05-15] MEDS: DILAUDID IV PRN ×6 (00:13→21:17)
[2018-05-15] MEDS: AMBIEN PO PRN (00:13)
[2018-05-15] MEDS: XANAX PO PRN ×3 (04:18→17:32)
[2018-05-15 06:05] LABS: Calcium 7.9 mg/dL (8.4-10.2)
[2018-05-15] MEDS: LASIX IV SCH (06:05)
[2018-05-15] MEDS: PERCOCET 5/325 PO PRN ×3 (10:20→23:25)
[2018-05-15] MEDS: LOVENOX SUB-Q SCH (10:21)
[2018-05-15] MEDS: NORVASC PO SCH (10:22)
[2018-05-15] MEDS: PLAVIX PO SCH (10:22)
[2018-05-15] MEDS: COREG PO SCH ×2 (10:22→21:17)
[2018-05-15] MEDS: IMDUR PO SCH (10:22)
[2018-05-15] MEDS: PREVACID SOLUTAB FEEDTUBE SCH (10:23)
[2018-05-15] MEDS: SODIUM CHLORIDE FLUSH SYRINGE 10 ML IV SCH ×2 (13:27→21:18)
[2018-05-15] MEDS: KIONEX PO SCH ×3 (13:28→23:26)
--- NOTE | 2018-05-15 14:06 | Progress Note ---
Assessment and Plan Assessment and plan: Unstable angina -stress test abnormal -s/p LT cardiac cath which showed known severe multi-vessel CAD -medical management recommended Severe Protein calorie Malnutrition -cont oral and tube feeding -PEG tube determined by GI not to be clogged -director of social work following Severe Hyperkalemia, refractory -No EKG changes -Status post multiple treatment with insulin and Kayexalate -Level trending down today, cont treatment with kayexalate, will monitor -Nephrology following Anemia of chronic disease -H/H stable Acute on chronic abd pain/chronic pain syndrome -stable on PRN narcotics h/o Gastric bypass 2008 -stable h/o Perforated PUD -continue PPI h/o CAD s/p CABG and stent placement -cont home meds HTN -controlled on meds Physical deconditioning -PT/OT consulted Disp: for d/c when his hyperkalemia resolves History Interval history: Patient has no new complaints. Hospitalist Physical - Constitutional Vitals: Temp Pulse Resp BP Pulse Ox 98.0 F 64 18 95/50 100 05/15/18 12:33 05/15/18 12:32 05/15/18 12:32 05/15/18 12:32 05/15/18 12:32 General appearance: Present: no acute distress - EENT Eyes: Present: PERRL, EOM intact ENT: hearing intact, clear oral mucosa - Neck Neck: Present: supple - Respiratory Respiratory effort: normal Respiratory: bilateral: CTA - Cardiovascular Rhythm: regular Heart Sounds: Present: S1 & S2 - Extremities Extremities: No edema - Abdominal General gastrointestinal: soft, non-tender, non-distended, normal bowel sounds, other (PEG tube noted) - Neurologic Neurologic: CNII-XII intact Results - Labs CBC & Chem 7: 05/13/18 06:06 05/15/18 05:09 Labs: Laboratory Last Values WBC 4.3 K/mm3 (4.5-11.0) L 05/13/18 06:06 RBC 2.85 M/mm3 (3.65-5.03) L 05/13/18 06:06 Hgb 8.5 gm/dl (11.8-15.2) L 05/13/18 06:06 Hct 25.5 % (35.5-45.6) L 05/13/18 06:06 MCV 90 fl (84-94) 05/13/18 06:06 MCH 30 pg (28-32) 05/13/18 06:06 MCHC 33 % (32-34) 05/13/18 06:06 RDW 14.6 % (13.2-15.2) 05/13/18 06:06 Plt Count 265 K/mm3 (140-440) 05/13/18 06:06 Lymph % (Auto) 19.1 % (13.4-35.0) 05/13/18 06:06 [place] % (Auto) 7.0 % (0.0-7.3) 05/13/18 06:06 Eos % (Auto) 5.5 % (0.0-4.3) H 05/13/18 06:06 Baso % (Auto) 0.9 % (0.0-1.8) 05/13/18 06:06 Lymph # 0.8 K/mm3 (1.2-5.4) L 05/13/18 06:06 [place] # 0.3 K/mm3 (0.0-0.8) 05/13/18 06:06 Eos # 0.2 K/mm3 (0.0-0.4) 05/13/18 06:06 Baso # 0.0 K/mm3 (0.0-0.1) 05/13/18 06:06 Seg Neutrophils % 67.5 % (40.0-70.0) 05/13/18 06:06 Seg Neutrophils # 2.9 K/mm3 (1.8-7.7) 05/13/18 06:06 PT 14.0 Sec. (12.2-14.9) 05/09/18 05:16 INR 1.02 (0.87-1.13) 05/09/18 05:16 APTT 24.4 Sec. (24.2-36.6) 05/09/18 05:16 D-Dimer 479.07 ng/mlDDU (0-234) H 05/05/18 20:49 Sodium 135 mmol/L (137-145) L 05/15/18 05:09 Potassium 5.6 mmol/L (3.6-5.0) H 05/15/18 05:09 Chloride 101.7 mmol/L (98-107) 05/15/18 05:09 Carbon Dioxide 25 mmol/L (22-30) 05/15/18 05:09 Anion Gap 14 mmol/L 05/15/18 05:09 BUN 11 mg/dL (9-20) 05/15/18 05:09 Creatinine 1.4 mg/dL (0.8-1.5) 05/15/18 05:09 Estimated GFR 54 ml/min 05/15/18 05:09 BUN/Creatinine Ratio 8 % 05/15/18 05:09 Glucose 92 mg/dL (75-100) 05/15/18 05:09 POC Glucose 87 (70-105) 05/14/18 12:05 Calcium 7.9 mg/dL (8.4-10.2) L 05/15/18 05:09 Total Bilirubin 0.20 mg/dL (0.1-1.2) 05/10/18 06:10 AST 52 units/L (5-40) H 05/10/18 06:10 ALT 36 units/L (7-56) 05/10/18 06:10 Alkaline Phosphatase 81 units/L (35-129) 05/10/18 06:10 Total Creatine Kinase 33 units/L (55-170) L 05/06/18 12:11 CK-MB (CK-2) 1.1 ng/mL (0.0-4.0) 05/06/18 12:11 CK-MB (CK-2) Rel Index 3.3 (0-4) 05/06/18 12:11 Troponin T < 0.010 ng/mL (0.00-0.029) 05/06/18 12:11 Total Protein 5.7 g/dL (6.3-8.2) L 05/10/18 06:10 Albumin 2.5 g/dL (3.9-5) L 05/10/18 06:10 Albumin/Globulin Ratio 0.8 % 05/10/18 06:10 Lipase 17 units/L (13-60) 05/05/18 20:49 Blood Type A POSITIVE 05/05/18 20:49 Antibody Screen Negative 05/05/18 20:49 Nutrition/Malnutrition Assess - Dietary Evaluation Nutrition/Malnutrition Findings: Nutrition Notes Start: 05/06/18 10:29 Freq: Status: Active Protocol: Document 05/13/18 11:11 ER (Rec: 05/13/18 11:23 ER [id number]) Co-Sign 05/13/18 11:11 LP Nutrition Notes Initial or Follow up Reassessment Current Diagnosis Coronary Artery Disease Hypertension Other Pertinent Diagnosis J-Tube, CABG, Gastric Bypass ( 2008) Current Diet Renal Diet Labs/Tests 5.7 Pertinent Medications Lasix Dariuszonex Height 6 ft 1 in Weight 67.8 kg [place] Body Weight (kg) 83.63 BMI 19.7 Subjective/Other Information Pt. tolerating full liquid diet and ONS. Pt. put on renal diet for high potassium levels at breakfast, pt. unable to eat solid food on tray. Discussed TF options w/ pt. Pt. would like to try Jevity 1.2 again and continue full liquid diet and Ensure clear. Percent of energy/protein needs met: 50% energy and protein needs on full liquid diet w/Ensure Clear Burn Absent Trauma Absent #2 Nutrition Diagnosis Altered GI function Diagnosis Progress(for reassessment Continues documentation) #1 Nutrition Diagnosis Malnutrition Diagnosis Progress(for reassessment Continues documentation) Is patient on ventilator? No Is Patient Ambulatory and/or Out of Bed Yes REE-([place]. Jeor-ambulatory/OOB) [ 2075.944 [id number]] Calculation Used for Recommendations [place] or Additional Notes PRO needs: 80-101g (1.2-1.5g/ kg) Fluid needs: 1 mL/kcal Nutrition Intervention Change Diet Order: TF - Jevity 65 mL/hr + Full liquid diet and Ensure clear BID Nutrition Support: Change to: Jevity 1.2 at 65 mL /hr w/100mL water flush q4h Kcal 1,872 Protein (gm) 87 Fluid (mL) 1,259 Fiber (gm) 28 Add Supplement/Snack (indicate name/kcal Ensure Clear BID /protein ) Provides kCal: 480 Provides Protein (gm) 16 Goal #1 TF and PO intakes to meet 100% of energy and protein needs. Goal #2 TF tolerance Goal #3 Weight maintenance Anticipated Discharge Needs: Tube Feed and full liquid Follow-Up By: 05/16/18 Additional Comments f/u: New TF, PO and ONS intakes
--- NOTE | 2018-05-15 14:15 | Progress Note ---
Assessment and Plan Assessment * Hyperkalemia * Unstable angina * Pain around J-tube site * Coronary artery disease * History of PE, duodenal ulcer rupture Plan * Potassium trending down - 5.6 today * Kayexelate prn * K restricted diet/nutrition supplements * Avoid ARB at discharge - was taking Losartan * Avoid potential nephrotoxins * Encourage hydration Subjective Date of service: 05/15/18 Principal diagnosis: J-tube malfunction Interval history: Patient has no complaints today Objective - Vital Signs Vital signs: Vital Signs - 12hr 05/15/18 05/15/18 05/15/18 04:02 09:31 09:33 Temperature 98.4 F 98.1 F Pulse Rate 60 62 Respiratory 17 18 Rate Blood Pressure 121/78 121/67 O2 Sat by Pulse 100 100 Oximetry 05/15/18 05/15/18 05/15/18 10:00 12:32 12:33 Temperature 98.0 F Pulse Rate 62 64 Respiratory 18 18 Rate Blood Pressure 95/50 O2 Sat by Pulse 100 Oximetry - General Appearance General appearance: well-developed, well-nourished EENT: ATNC Respiratory: Present: Clear to Ascultation Cardiology: regular, S1S2 Gastrointestinal: normal, no tenderness, no distended Musculoskeletal: other (no edema) Psychiatric: cooperative - Lab 05/13/18 06:06 05/15/18 05:09 Most recent lab results Calcium 7.9 mg/dL (8.4-10.2) L 05/15/18 05:09 Medications & Allergies - Medications Allergies/Adverse Reactions: Allergies NSAIDS (Non-Steroidal Anti-Inflamma Allergy (Verified 05/06/18 02:49) Bleeding lisinopril Adverse Reaction (Verified 05/06/18 02:49) Unknown Home Medications: Home Medications Medication Instructions Recorded Confirmed Last Taken Type Ambien 10 mg PO HS 05/06/18 05/06/18 Unknown History Losartan 100 mg PO DAILY 05/06/18 05/06/18 Unknown History Simvastatin 40 mg PO HS 05/06/18 05/06/18 Unknown History Xanax 1 mg PO TID PRN 05/06/18 05/06/18 Unknown History Active Medications: Generic Name Dose Route Start Last Admin Trade Name Freq PRN Reason Stop Dose Admin Acetaminophen 650 mg 05/06/18 06:42 Tylenol PO Q4H PRN Pain MILD(1-3)/Fever >100.5/DUARTE Alprazolam 1 mg 05/06/18 06:56 05/15/18 10:21 Xanax PO 1 mg TID PRN Administration Anxiety Amlodipine Besylate 5 mg 05/14/18 10:29 05/15/18 10:22 Norvasc PO 5 mg QDAY PIERO Administration Lipase/Protease/Amylase 1 each 05/13/18 11:01 Pancrefaye Guzman 10,500 Unit FEEDTUBE PRN PRN For Clogged Feeding Tube Atorvastatin Calcium 40 mg 05/07/18 22:00 05/14/18 21:23 Lipitor PO 40 mg QHS PIERO Administration Carvedilol 3.125 mg 05/14/18 22:00 05/15/18 10:22 Coreg PO 3.125 mg BID PIERO Administration Clopidogrel Bisulfate 75 mg 05/08/18 10:00 05/15/18 10:22 Plavix PO 75 mg QDAY PIERO Administration Enoxaparin Sodium 40 mg 05/08/18 10:00 05/15/18 10:21 Lovenox SUB-Q 40 mg QDAY@1000 [facility]ERO Administration Furosemide 40 mg 05/12/18 11:00 05/15/18 06:05 Lasix IV 40 mg DAILY@0600 [facility] [place] [place] Administration Hydromorphone HCl 1 mg 05/06/18 17:49 05/15/18 13:28 Dilaudid IV 1 mg Q4H PRN Administration Pain , Severe (7-10) Isosorbide Mononitrate 30 mg 05/11/18 10:00 05/15/18 10:22 Imdur PO 30 mg QDAY PIERO Administration Lansoprazole 30 mg 05/14/18 10:00 05/15/18 10:23 Prevacid Solutab FEEDTUBE 30 mg QDAY PIERO Administration Ondansetron HCl 4 mg 05/06/18 06:42 05/14/18 12:37 Zofran IV 4 mg Q8H PRN Administration Nausea And Vomiting Oxycodone/Acetaminophen 2 tab 05/11/18 11:00 05/15/18 10:20 Percocet 5/325 PO 2 tab Q4H PRN Administration Pain, Moderate (4-6) Simple Syrup 15 ml 05/13/18 11:01 Simple Syrup FEEDTUBE PRN PRN Hypoglycemia Simple Syrup 30 ml 05/13/18 11:01 Simple Syrup FEEDTUBE PRN PRN Hypoglycemia Sodium Bicarbonate 325 mg 05/13/18 11:01 Sodium Bicarbonate FEEDTUBE PRN PRN For Clogged Feeding Tube Sodium Chloride 10 ml 05/06/18 10:00 05/15/18 13:27 Sodium Chloride Flush Syringe 10 Ml IV 10 ml BID PIERO Administration Sodium Chloride 10 ml 05/06/18 06:42 Sodium Chloride Flush Syringe 10 Ml IV PRN PRN LINE FLUSH Sodium Polystyrene Sulfonate 30 gm 05/15/18 12:00 05/15/18 13:28 Kionex PO 05/16/18 00:01 30 gm Q6HR PIERO Administration Zolpidem Tartrate 10 mg 05/07/18 00:00 05/15/18 00:13 Ambien PO 10 mg QHS PRN Administration Insomnia
[2018-05-15] MEDS: ZOFRAN IV PRN (14:49)
[2018-05-16] MEDS: AMBIEN PO PRN (01:39)
[2018-05-16] MEDS: DILAUDID IV PRN ×5 (05:06→22:05)
[2018-05-16] MEDS: LASIX IV SCH (05:07)
[2018-05-16 06:01] LABS: Calcium 7.9 mg/dL (8.4-10.2)
[2018-05-16] MEDS: XANAX PO PRN ×3 (06:43→22:05)
[2018-05-16] MEDS: ZOFRAN IV PRN (09:52)
[2018-05-16] MEDS: PREVACID SOLUTAB FEEDTUBE SCH (09:52)
[2018-05-16] MEDS: LOVENOX SUB-Q SCH (09:53)
[2018-05-16] MEDS: PLAVIX PO SCH (09:53)
[2018-05-16] MEDS: IMDUR PO SCH (09:54)
[2018-05-16] MEDS: COREG PO SCH ×2 (09:54→22:00)
[2018-05-16] MEDS: SODIUM CHLORIDE FLUSH SYRINGE 10 ML IV SCH ×2 (09:55→22:01)
[2018-05-16] MEDS: NORVASC PO SCH (09:55)
[2018-05-16] MEDS ORDERED: KIONEX PO NR ×2 (10:00→18:30)
[2018-05-16] MEDS ORDERED: D50W (25GM) Syringe IV NR (10:20)
[2018-05-16] MEDS ORDERED: HumuLIN R IV ONE (10:20)
[2018-05-16] MEDS ORDERED: PROVENTIL IH ONE (10:25)
--- NOTE | 2018-05-16 10:25 | Progress Note ---
Subjective Principal diagnosis: J-tube malfunction Interval history: Patient was seen today for follow-up on multiple renal related issues Events of this hospitalization noted Patient denies having any chest pain pressure or shortness of breath Vitals labs intake output medications were reviewed Social history: Reviewed Allergies: Reviewed Family history: Reviewed Physical examination HEENT: Oral mucosa moist no pallor or icterus Neck: Supple no JVD Chest: Clear to auscultation anteriorly CVS: Regular rate and rhythm S1 and S2 heard Abdomen: Soft nontender no suprapubic masses no organomegaly appreciable Extremity: Dry skin less than 1+ peripheral edema Musculoskeletal: No joint effusion noted in knees and ankle Neurological: Alert awake Dermatology: No petechial rashes Psychiatry: No evidence of any agitation and aggression noted Assessment and plan Acute kidney injury creatinine has risen from 1.0-1.5 today Is no evidence of any metabolic acidosis Potassium remains around 6.0 with sodium of 132, high index of clinical suspicion for hypoaldosteronism Will place the patient on Florinef trial for now Will order urinary studies to rule out any possibility of renal tubular acidosis bicarbonate was 19 on 05/14/2018, check trans-tubular potassium gradient Hyperkalemia: Continue to monitor medical treatment for now, treat medically aggressively Avoid Kayexalate with recent history of duodenal perforation Admitted with unstable angina with prior history of coronary artery disease, pulmonary embolism Status post duodenal ulcer rupture Patient was adequately counseled and educated regarding multiple renal related issues Pertinent lab findings were discussed with patient, patient does exhibit good understanding of renal issues We'll continue to follow and make recommendation from renal standpoint Objective - Vital Signs Vital signs: Vital Signs - 12hr 05/15/18 05/16/18 05/16/18 23:30 01:33 04:41 Temperature 98.0 F 98.2 F Pulse Rate 57 L 59 L 58 L Respiratory 17 17 Rate Blood Pressure 100/69 169/84 118/70 O2 Sat by Pulse 98 100 98 Oximetry 05/16/18 05/16/18 05/16/18 05:40 09:54 09:55 Temperature Pulse Rate 74 58 L 58 L Respiratory Rate Blood Pressure O2 Sat by Pulse Oximetry - Lab 05/13/18 06:06 05/16/18 05:07 Most recent lab results Calcium 7.9 mg/dL (8.4-10.2) L 05/16/18 05:07 Medications & Allergies - Medications Allergies/Adverse Reactions: Allergies NSAIDS (Non-Steroidal Anti-Inflamma Allergy (Verified 05/06/18 02:49) Bleeding lisinopril Adverse Reaction (Verified 05/06/18 02:49) Unknown Home Medications: Home Medications Medication Instructions Recorded Confirmed Last Taken Type Ambien 10 mg PO HS 05/06/18 05/06/18 Unknown History Losartan 100 mg PO DAILY 05/06/18 05/06/18 Unknown History Simvastatin 40 mg PO HS 05/06/18 05/06/18 Unknown History Xanax 1 mg PO TID PRN 05/06/18 05/06/18 Unknown History Active Medications: Generic Name Dose Route Start Last Admin Trade Name Freq PRN Reason Stop Dose Admin Acetaminophen 650 mg 05/06/18 06:42 Tylenol PO Q4H PRN Pain MILD(1-3)/Fever >100.5/DUARTE Albuterol 10 mg 05/16/18 10:25 Proventil IH 05/16/18 10:26 ONCE ONE Alprazolam 1 mg 05/06/18 06:56 05/16/18 06:43 Xanax PO 1 mg TID PRN Administration Anxiety Amlodipine Besylate 5 mg 05/14/18 10:29 05/16/18 09:55 Norvasc PO Not Given QDAY PIERO Lipase/Protease/Amylase 1 each 05/13/18 11:01 Pancreaze 10,500 Unit FEEDTUBE PRN PRN For Clogged Feeding Tube Atorvastatin Calcium 40 mg 05/07/18 22:00 05/15/18 21:17 Lipitor PO 40 mg QHS PIERO Administration Carvedilol 3.125 mg 05/14/18 22:00 05/16/18 09:54 Coreg PO Not Given BID PIERO Clopidogrel Bisulfate 75 mg 05/08/18 10:00 05/16/18 09:53 Plavix PO 75 mg QDAY PIERO Administration Dextrose 25 ml 05/16/18 10:20 D50w (25gm) Syringe IV 05/16/18 10:21 ONCE ONE Enoxaparin Sodium 40 mg 05/08/18 10:00 05/16/18 09:53 Lovenox SUB-Q 40 mg QDAY@1000 PIERO Administration Fludrocortisone Acetate 0.1 mg 05/17/18 10:00 Florinef PO QDAY PIERO Furosemide 40 mg 05/12/18 11:00 05/16/18 05:07 Lasix IV 40 mg DAILY@0600 PIERO Administration Hydromorphone HCl 1 mg 05/06/18 17:49 05/16/18 09:53 Dilaudid IV 1 mg Q4H PRN Administration Pain , Severe (7-10) Calcium Chloride 1,000 mg/ 110 mls @ 660 mls/hr 05/16/18 10:20 Sodium Chloride IV 05/16/18 10:29 ONCE ONE Insulin Human Regular 6 units 05/16/18 10:20 Humulin R IV 05/16/18 10:21 ONCE ONE Isosorbide Mononitrate 30 mg 05/11/18 10:00 05/16/18 09:54 Imdur PO Not Given QDAY PIERO Lansoprazole 30 mg 05/14/18 10:00 05/16/18 09:52 Prevacid Solutab FEEDTUBE 30 mg QDAY PIERO Administration Ondansetron HCl 4 mg 05/06/18 06:42 05/16/18 09:52 Zofran IV 4 mg Q8H PRN Administration Nausea And Vomiting Oxycodone/Acetaminophen 2 tab 05/11/18 11:00 05/15/18 23:25 Percocet 5/325 PO 2 tab Q4H PRN Administration Pain, Moderate (4-6) Simple Syrup 15 ml 05/13/18 11:01 Simple Syrup FEEDTUBE PRN PRN Hypoglycemia Simple Syrup 30 ml 05/13/18 11:01 Simple Syrup FEEDTUBE PRN PRN Hypoglycemia Sodium Bicarbonate 325 mg 05/13/18 11:01 Sodium Bicarbonate FEEDTUBE PRN PRN For Clogged Feeding Tube Sodium Chloride 10 ml 05/06/18 10:00 05/16/18 09:55 Sodium Chloride Flush Syringe 10 Ml IV 10 ml BID PIERO Administration Sodium Chloride 10 ml 05/06/18 06:42 Sodium Chloride Flush Syringe 10 Ml IV PRN PRN LINE FLUSH Sodium Polystyrene Sulfonate 60 gm 05/16/18 10:00 05/16/18 09:54 Kionex PO 05/16/18 12:00 60 gm ONCE NR Administration Zolpidem Tartrate 10 mg 05/07/18 00:00 05/16/18 01:39 Ambien PO 10 mg QHS PRN Administration Insomnia
[2018-05-16] MEDS ORDERED: CALCIUM CHLORIDE 1,000 MG in NACL 0.9% 100 ML IV ONE (11:00)
[2018-05-16] MEDS: PERCOCET 5/325 PO PRN (11:24)
[2018-05-16 15:16] LABS: Calcium 8.7 mg/dL (8.4-10.2)
[2018-05-16] MEDS ORDERED: PANCREAZE DR 10,500 UNIT FEEDTUBE PRN (17:18)
[2018-05-16] MEDS ORDERED: SIMPLE SYRUP FEEDTUBE PRN ×2 (17:18)
[2018-05-16] MEDS ORDERED: SODIUM BICARBONATE FEEDTUBE PRN (17:18)
--- NOTE | 2018-05-16 17:52 | Progress Note ---
Subjective Date of service: 05/16/18 Principal diagnosis: J-tube malfunction Interval history: 38-year-old male admitted for J-tube malfunction and has been having recurrent hyperkalemia He is alert and oriented. History of surgery for perforated ulcer Unstable angina -stress test abnormal -s/p LT cardiac cath which showed known severe multi-vessel CAD -medical management recommended Severe Protein calorie Malnutrition -cont oral and tube feeding -J tube determined by GI not to be clogged -development manager following Severe Hyperkalemia, refractory -No EKG changes -Status post multiple treatment with insulin and Kayexalate -With Dr Goodman -Patient most likely has RTA -I have been advised to avoid Kayexalate due to recent surgery for perforation -Nephrology following -Continue management of hyperkalemia per nephrology Anemia of chronic disease -H/H stable Acute on chronic abd pain/chronic pain syndrome -stable on PRN narcotics h/o Gastric bypass 2008 -stable h/o Perforated PUD -continue PPI h/o CAD s/p CABG and stent placement -cont home meds HTN -controlled on meds Physical deconditioning -PT/OT consulted Objective HEENT: Oral mucosa moist no pallor or icterus Neck: Supple no JVD Chest: Clear to auscultation anteriorly CVS: Regular rate and rhythm S1 and S2 heard Abdomen: Soft nontender no suprapubic masses no organomegaly appreciable, has a functioning J-tube Extremity: Dry skin less than 1+ peripheral edema Musculoskeletal: No joint effusion noted in knees and ankle Neurological: Alert awake Dermatology: No petechial rashes Psychiatry: Normal mood And affect Objective - Constitutional Vitals: Vital Signs - 12hr 05/16/18 05/16/18 05/16/18 09:54 09:55 11:06 Temperature Pulse Rate 58 L 58 L 68 Respiratory 18 Rate Blood Pressure 116/55 O2 Sat by Pulse 98 Oximetry 05/16/18 05/16/18 11:08 17:00 Temperature 97.8 F 97.9 F Pulse Rate 58 L Respiratory 18 Rate Blood Pressure 103/61 O2 Sat by Pulse 98 Oximetry - Labs CBC & Chem 7: 05/13/18 06:06 05/16/18 14:31 Labs: Abnormal lab results 05/16/18 05/16/18 Range/Units 05:07 14:31 Sodium 132 L 131 L (137-145) mmol/L Potassium 6.0 H 6.3 H* (3.6-5.0) mmol/L Chloride 96.3 L (98-107) mmol/L Glucose 101 H 66 L (75-100) mg/dL Calcium 7.9 L (8.4-10.2) mg/dL
[2018-05-17] MEDS ORDERED: CALCIUM CHLORIDE 1,000 MG in NACL 0.9% 100 ML IV ONE (00:08)
[2018-05-17] MEDS ORDERED: D50W (25GM) Syringe IV ONE ×2 (00:09→15:47)
[2018-05-17] MEDS ORDERED: HumuLIN R IV ONE ×2 (00:09→15:47)
[2018-05-17] MEDS ORDERED: LASIX IV ONE (00:12)
--- NOTE | 2018-05-17 00:19 | Event Note ---
Discussed with patients nurse says Dr Millard changed from jevity to nepro Recieved kayexalate in PM, went 4 times already Needs ABG potassium to make sure it is not error, if over 5.[address] Millard, and give calcium Dextrose, insulin , laisx albuterol if remains over 6 he may need dialysis advised nurse to inform Dr Millard if k is elevated She will do that
[2018-05-17] MEDS ORDERED: PROVENTIL IH ONE ×3 (00:20→16:00)
[2018-05-17] MEDS: AMBIEN PO PRN ×2 (00:32→22:07)
[2018-05-17] MEDS: DILAUDID IV PRN ×5 (02:34→22:07)
[2018-05-17] MEDS: LASIX IV SCH (05:58)
[2018-05-17] MEDS: XANAX PO PRN ×3 (06:40→21:09)
[2018-05-17 07:24] LABS: Calcium 8.7 mg/dL (8.4-10.2)
--- NOTE | 2018-05-17 08:49 | Progress Note ---
Subjective Principal diagnosis: J-tube malfunction Interval history: Patient was seen today for follow-up on multiple renal related issues Events of this hospitalization noted Potassium still remains elevated Patient denies having any chest pain pressure or shortness of breath Vitals labs intake output medications were reviewed Social history: Reviewed Allergies: Reviewed Family history: Reviewed Physical examination HEENT: Oral mucosa moist no pallor or icterus Neck: Supple no JVD Chest: Clear to auscultation anteriorly CVS: Regular rate and rhythm S1 and S2 heard Abdomen: Soft nontender no suprapubic masses no organomegaly appreciable Extremity: Dry skin less than 1+ peripheral edema Musculoskeletal: No joint effusion noted in knees and ankle Neurological: Alert awake Dermatology: No petechial rashes Psychiatry: No evidence of any agitation and aggression noted Assessment and plan Acute kidney injury, mostly prerenal Will need to monitor and follow-up on the creatinine Refractory hyperkalemia: Not responding to medical treatment: Patient will need hemodialysis, he has currently failed medical treatment and is at risk for hyperkalemia related complications patient agreeable for dialysis D/w [facility] about stat vascath Metabolic acidosis: Currently better Hypocalcemia currently improved Past tubular potassium gradient only 0.2 suggestive of hypoaldosteronism, increase fludrocortisone to twice a day,Would also like to add low-dose thiazide 25 mg once a day and follow-up on the potassium level Admitted with unstable angina with prior history of coronary artery disease, pulmonary embolism Status post duodenal ulcer rupture Patient was adequately counseled and educated regarding multiple renal related issues Pertinent lab findings were discussed with patient, patient does exhibit good understanding of renal issues We'll continue to follow and make recommendation from renal standpoint Objective - Vital Signs Vital signs: Vital Signs - 12hr 05/16/18 05/16/18 05/16/18 22:00 22:05 23:57 Temperature 98.1 F Pulse Rate 66 58 L Respiratory 20 18 Rate Blood Pressure 113/71 O2 Sat by Pulse 100 Oximetry 05/17/18 05/17/18 05/17/18 02:34 04:09 06:39 Temperature 98.5 F Pulse Rate 56 L Respiratory 18 18 18 Rate Blood Pressure 116/63 O2 Sat by Pulse 98 Oximetry 05/17/18 07:42 Temperature 97.8 F Pulse Rate 67 Respiratory 19 Rate Blood Pressure 91/66 O2 Sat by Pulse 99 Oximetry - Lab 05/13/18 06:06 05/17/18 06:35 Most recent lab results Calcium 8.7 mg/dL (8.4-10.2) 05/17/18 06:35 Medications & Allergies - Medications Allergies/Adverse Reactions: Allergies NSAIDS (Non-Steroidal Anti-Inflamma Allergy (Verified 05/06/18 02:49) Bleeding lisinopril Adverse Reaction (Verified 05/06/18 02:49) Unknown Home Medications: Home Medications Medication Instructions Recorded Confirmed Last Taken Type Ambien 10 mg PO HS 05/06/18 05/06/18 Unknown History Losartan 100 mg PO DAILY 05/06/18 05/06/18 Unknown History Simvastatin 40 mg PO HS 05/06/18 05/06/18 Unknown History Xanax 1 mg PO TID PRN 05/06/18 05/06/18 Unknown History Active Medications: Generic Name Dose Route Start Last Admin Trade Name Freq PRN Reason Stop Dose Admin Acetaminophen 650 mg 05/06/18 06:42 Tylenol PO Q4H PRN Pain MILD(1-3)/Fever >100.5/DUARTE Alprazolam 1 mg 05/06/18 06:56 05/17/18 06:40 Xanax PO 1 mg TID PRN Administration Anxiety Amlodipine Besylate 5 mg 05/14/18 10:29 05/16/18 09:55 Norvasc PO Not Given QDAY [facility] Lipase/Protease/Amylase 1 each 05/13/18 11:01 Pancreazletitia Guzman 10,500 Unit FEEDTUBE PRN PRN For Clogged Feeding Tube Atorvastatin Calcium 40 mg 05/07/18 22:00 05/16/18 21:59 Lipitor PO 40 mg QHS PIERO Administration Carvedilol 3.125 mg 05/14/18 22:00 05/16/18 22:00 Coreg PO 3.125 mg BID PIERO Administration Clopidogrel Bisulfate 75 mg 05/08/18 10:00 05/16/18 09:53 Plavix PO 75 mg QDAY PIERO Administration Enoxaparin Sodium 40 mg 05/08/18 10:00 05/16/18 09:53 Lovenox SUB-Q 40 mg QDAY@1000 [facility]ERO Administration Fludrocortisone Acetate 0.1 mg 05/17/18 10:00 Florinef PO QDAY PIERO Furosemide 40 mg 05/12/18 11:00 05/17/18 05:58 Lasix IV 40 mg DAILY@0600 [facility] Administration Hydromorphone HCl 1 mg 05/06/18 17:49 05/17/18 06:39 Dilaudid IV 1 mg Q4H PRN Administration Pain , Severe (7-10) Isosorbide Mononitrate 30 mg 05/11/18 10:00 05/16/18 09:54 Imdur PO Not Given QDAY PIERO Lansoprazole 30 mg 05/14/18 10:00 05/16/18 09:52 Prevacid Solutab FEEDTUBE 30 mg QDAY PIERO Administration Ondansetron HCl 4 mg 05/06/18 06:42 05/16/18 09:52 Zofran IV 4 mg Q8H PRN Administration Nausea And Vomiting Oxycodone/Acetaminophen 2 tab 05/11/18 11:00 05/16/18 11:24 Percocet 5/325 PO 2 tab Q4H PRN Administration Pain, Moderate (4-6) Simple Syrup 15 ml 05/13/18 11:01 Simple Syrup FEEDTUBE PRN PRN Hypoglycemia Simple Syrup 30 ml 05/13/18 11:01 Simple Syrup FEEDTUBE PRN PRN Hypoglycemia Sodium Bicarbonate 325 mg 05/13/18 11:01 Sodium Bicarbonate FEEDTUBE PRN PRN For Clogged Feeding Tube Sodium Chloride 10 ml 05/06/18 10:00 05/16/18 22:01 Sodium Chloride Flush Syringe 10 Ml IV 10 ml BID PIERO Administration Sodium Chloride 10 ml 05/06/18 06:42 Sodium Chloride Flush Syringe 10 Ml IV PRN PRN LINE FLUSH Zolpidem Tartrate 10 mg 05/07/18 00:00 05/17/18 00:32 Ambien PO 10 mg QHS PRN Administration Insomnia
[2018-05-17] MEDS: PERCOCET 5/325 PO PRN ×3 (08:59→21:09)
[2018-05-17] MEDS ORDERED: FLORINEF PO SCH (10:00)
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
[2018-05-17] MEDS: PLAVIX PO SCH (10:52)
[2018-05-17] MEDS: COREG PO SCH ×2 (10:53→21:09)
[2018-05-17] MEDS: NORVASC PO SCH (10:54)
[2018-05-17] MEDS: IMDUR PO SCH (10:55)
[2018-05-17] MEDS: LOVENOX SUB-Q SCH (10:56)
[2018-05-17] MEDS: SODIUM CHLORIDE FLUSH SYRINGE 10 ML IV SCH ×2 (10:57→21:10)
[2018-05-17] MEDS: PREVACID SOLUTAB FEEDTUBE SCH (10:57)
[2018-05-17] MEDS ORDERED: CALCIUM GLUCONATE 1,000 MG in NACL 0.9% 100 ML IV NR (11:00)
[2018-05-17] MEDS: KIONEX PO SCH ×2 (11:41→21:10)
--- NOTE | 2018-05-17 13:20 | Progress Note ---
Assessment and Plan Assessment and plan: 48-year-old male admitted for J-tube malfunction and has been having recurrent hyperkalemia He is alert and oriented. History of surgery for perforated ulcer --Persistent Hyperkalemia, refractory Calcium gluconate 1 amp IV, Kayexalate 30. q 3 hrs x2 Status post multiple treatment with insulin and Kayexalate Nephrology following Patient most likely has RTA --Unstable angina stress test abnormal s/p LT cardiac cath which showed known severe multi-vessel CAD medical management recommended --Severe Protein calorie Malnutrition cont oral and tube feeding J tube determined by GI not to be clogged plate finisher following --Anemia of chronic disease -H/H stable --Acute on chronic abd pain/chronic pain syndrome stable on PRN narcotics --h/o Gastric bypass 2008 stable --h/o Perforated PUD continue PPI --h/o CAD s/p CABG and stent placement cont home meds --HTN Continue current antihypertensives and when necessary medications --Physical deconditioning Physical therapy occupational therapy --CODE STATUS Full Code Consults and recommendations noted and appreciated History Interval history: Patient seen and examined medical records reviewed Patient has persistent hyperkalemia, nephrology recommended Stat dialysis today Patient has no new complaints vital signs reviewed Hospitalist Physical - Constitutional Vitals: Temp Pulse Resp BP Pulse Ox 98.4 F 66 18 116/69 98 05/17/18 11:31 05/17/18 11:31 05/17/18 11:31 05/17/18 11:31 05/17/18 11:31 General appearance: Present: no acute distress, cachectic (pt appears very thin) - EENT Eyes: Present: PERRL, EOM intact - Neck Neck: Present: supple, normal ROM - Respiratory Respiratory effort: normal Respiratory: bilateral: diminished, negative: rales, rhonchi, wheezing - Cardiovascular Rhythm: regular Heart Sounds: Present: S1 & S2 - Extremities Extremities: no ischemia, No edema - Abdominal General gastrointestinal: soft, non-tender, non-distended, normal bowel sounds, other (PEG in place) - Integumentary Integumentary: Present: clear, warm - Psychiatric Psychiatric: appropriate mood/affect, cooperative - Neurologic Neurologic: CNII-XII intact, moves all extremities Results - Labs CBC & Chem 7: 05/13/18 06:06 05/17/18 06:35 Labs: Laboratory Last Values WBC 4.3 K/mm3 (4.5-11.0) L 05/13/18 06:06 RBC 2.85 M/mm3 (3.65-5.03) L 05/13/18 06:06 Hgb 8.5 gm/dl (11.8-15.2) L 05/13/18 06:06 Hct 25.5 % (35.5-45.6) L 05/13/18 06:06 MCV 90 fl (84-94) 05/13/18 06:06 MCH 30 pg (28-32) 05/13/18 06:06 MCHC 33 % (32-34) 05/13/18 06:06 RDW 14.6 % (13.2-15.2) 05/13/18 06:06 Plt Count 265 K/mm3 (140-440) 05/13/18 06:06 Lymph % (Auto) 19.1 % (13.4-35.0) 05/13/18 06:06 Real % (Auto) 7.0 % (0.0-7.3) 05/13/18 06:06 Eos % (Auto) 5.5 % (0.0-4.3) H 05/13/18 06:06 Baso % (Auto) 0.9 % (0.0-1.8) 05/13/18 06:06 Lymph # 0.8 K/mm3 (1.2-5.4) L 05/13/18 06:06 Real # 0.3 K/mm3 (0.0-0.8) 05/13/18 06:06 Eos # 0.2 K/mm3 (0.0-0.4) 05/13/18 06:06 Baso # 0.0 K/mm3 (0.0-0.1) 05/13/18 06:06 Seg Neutrophils % 67.5 % (40.0-70.0) 05/13/18 06:06 Seg Neutrophils # 2.9 K/mm3 (1.8-7.7) 05/13/18 06:06 PT 14.0 Sec. (12.2-14.9) 05/09/18 05:16 INR 1.02 (0.87-1.13) 05/09/18 05:16 APTT 24.4 Sec. (24.2-36.6) 05/09/18 05:16 D-Dimer 479.07 ng/mlDDU (0-234) H 05/05/18 20:49 Sodium 135 mmol/L (137-145) L 05/17/18 06:35 Potassium 6.3 mmol/L (3.6-5.0) H* 05/17/18 06:35 Chloride 97.5 mmol/L (98-107) L 05/17/18 06:35 Carbon Dioxide 27 mmol/L (22-30) 05/17/18 06:35 Anion Gap 17 mmol/L 05/17/18 06:35 BUN 17 mg/dL (9-20) 05/17/18 06:35 Creatinine 1.5 mg/dL (0.8-1.5) 05/17/18 06:35 Estimated GFR 50 ml/min 05/17/18 06:35 BUN/Creatinine Ratio 11 % 05/17/18 06:35 Glucose 93 mg/dL (75-100) 05/17/18 06:35 POC Glucose 87 (70-105) 05/14/18 12:05 Osmolality 286 Mosm/kg 05/16/18 10:58 Calcium 8.7 mg/dL (8.4-10.2) 05/17/18 06:35 Total Bilirubin 0.20 mg/dL (0.1-1.2) 05/10/18 06:10 AST 52 units/L (5-40) H 05/10/18 06:10 ALT 36 units/L (7-56) 05/10/18 06:10 Alkaline Phosphatase 81 units/L (35-129) 05/10/18 06:10 Total Creatine Kinase 33 units/L (55-170) L 05/06/18 12:11 CK-MB (CK-2) 1.1 ng/mL (0.0-4.0) 05/06/18 12:11 CK-MB (CK-2) Rel Index 3.3 (0-4) 05/06/18 12:11 Troponin T < 0.010 ng/mL (0.00-0.029) 05/06/18 12:11 Total Protein 5.7 g/dL (6.3-8.2) L 05/10/18 06:10 Albumin 2.5 g/dL (3.9-5) L 05/10/18 06:10 Albumin/Globulin Ratio 0.8 % 05/10/18 06:10 Lipase 17 units/L (13-60) 05/05/18 20:49 Urine Osmolality 184 Mosm/kg 05/16/18 12:16 Urine Potassium 1.00 mmol/L 05/16/18 12:16 Blood Type A POSITIVE 05/05/18 20:49 Antibody Screen Negative 05/05/18 20:49 Nutrition/Malnutrition Assess - Dietary Evaluation Nutrition/Malnutrition Findings: Nutrition Notes Start: 05/06/18 10:29 Freq: Status: Active Protocol: Document 05/17/18 11:45 KH (Rec: 05/17/18 11:56 [email or web address]) Co-Sign 05/17/18 11:45 OL Nutrition Notes Initial or Follow up Brief Note Current Diagnosis Coronary Artery Disease Hypertension Other Pertinent Diagnosis J-Tube, CABG, Gastric Bypass ( 2008) Current Diet TF + Renal/full liquid Height 6 ft 1 in Weight 64.9 kg [place] Body Weight (kg) 83.63 BMI 18.8 Weight change and time frame weight obtined from bed scale Subjective/Other Information Pt. f/u for formula change and K-levels. Observed Nepro infusing at 25 ml/hr. Per pt., TF was initiated last night. Pt. continues to express concern for J-tube malfunction . Burn Absent Trauma Absent GI Symptoms Vomiting Minimum of two criteria Yes Interpretation of Weight Loss (severe) > 20% in 1 year Body Fat Depletion Moderate depletion (severe) Muscle Mass Moderate Depletion (severe) #2 Nutrition Diagnosis Altered GI function Diagnosis Progress(for reassessment Continues documentation) #1 Nutrition Diagnosis Malnutrition Diagnosis Progress(for reassessment Continues documentation) Nutrition Intervention Follow-Up By: 05/19/18 Additional Comments F/u for TF infusing at rate, K labs
[2018-05-17] MEDS ORDERED: NACL 0.9% 100 ML IV PRN (15:40)
--- NOTE | 2018-05-17 15:47 | Event Note ---
Discussed with vascular surgery, physician construction assistant Harsh , but I have discussed the case in the morning about immediate Vas-Cath placement Harsh has discussed the case with Dr. Ballesteros ICU, and was told there are no ICU bed Patient needs an immediate Vas-Cath for hemodialysis I have already placed stat hemodialysis order for patient to be dialyzed Also discussed with Dr. Paula patient's attending physician, she has already given calcium to this patient in the morning Also give albuterol 10 mg again He will need to be given 1 amp of calcium chloride in the meantime Patient needs emergent hemodialysis due to refractory hyperkalemia, which has not responded to the medical treatment This is urgent and must be handled appropriately,i'm also going to contact nursing supervisor carpenters I'm also going to discuss this with Dr. Pringle
[2018-05-17] MEDS ORDERED: VERSED ONE (16:30)
[2018-05-17] MEDS ORDERED: HEPARIN/NS 5000 UNIT/500ML(CATH LAB) 500 ML IR ONE (16:31)
[2018-05-17] MEDS ORDERED: XYLOCAINE 1%/ EPI 1:100,000 INFILTRATI ONE (16:32)
[2018-05-17] MEDS ORDERED: NACL 0.9% 250ML 0 ML ONE (16:32)
[2018-05-17] MEDS: SUBLIMAZE ONE ×2 (17:13→17:22)
[2018-05-17] MEDS: HEPARIN 10,000 UNITS/10 ML ONE ×2 (17:22→17:23)
--- NOTE | 2018-05-17 17:36 | Operative Report ---
Operative Report Operative Report: Date of procedure: 05/17/2018 Pre-operative diagnosis: Refractory hyperkalemia Post-operative diagnosis: Same Procedure name(s): Section of Vas-Cath right internal jugular vein using duplex guidance and fluoroscopic supervision and interpretation Surgeon: Luis Anaya MD Electric Motor And Generator Assembler: None Anesthesia: Moderate sedation starting time 1713 completion time 1723 sedation time 10 minutes EBL: none Specimen(s): none Complications: none Findings: Vas-Cath in good position ready for use Procedure: Patient in the supine position with the head was rotated to the left, the right anterior neck and chest were prepped and draped using standard sterile technique. A duplex scan was brought into the surgical field in a sterile fashion and the internal jugular vein was identified. It was patent. The skin overlying that vessel was anesthetized and a standard cannulation needle was inserted under real-time imaging and observed to penetrate the anterior wall of the internal jugular vein. Intraluminal position was confirmed with aspiration. A guidewire was advanced into the inferior vena cava using fluoroscopy. The cannulation needle was removed. The tract was then dilated and a standard 15 cm Medcomp pre-curved vas cath was inserted using Seldinger technique and advanced into the right atrium. Guidewire was removed and all limbs were aspirated flushed and primed. The catheter was anchored to the skin using suture. Bio- disc was placed. Sterile dressing was applied. Patient was returned to the supine position in stable condition.
[2018-05-17 19:40] LABS: Hepatitis B Surface Antigen Non-Reactive (Negative); Hepatitis C Virus Antibody Non-Reactive (NonReactive)
[2018-05-17] MEDS ORDERED: NACL 0.9 (PRIMING MACHINE ONLY DIALYSIS) MC ONE (21:01)
[2018-05-18] MEDS: KIONEX PO SCH ×5 (00:27→23:26)
[2018-05-18] MEDS: DILAUDID IV PRN ×5 (04:40→21:56)
[2018-05-18] MEDS: LASIX IV SCH (04:59)
[2018-05-18] MEDS: XANAX PO PRN ×3 (06:24→22:00)
[2018-05-18 07:01] LABS: BUN/Creatinine Ratio 11; Blood Urea Nitrogen 11 mg/dL (9-20); Calcium 8.7 mg/dL (8.4-10.2); Hemolysis Index 2
--- NOTE | 2018-05-18 09:18 | Progress Note ---
Subjective Principal diagnosis: J-tube malfunction Interval history: Patient was seen today for follow-up on multiple renal related issues [place] better after dialysis yesterday Potassium still remains elevated Vitals labs intake output medications were reviewed Social history: Reviewed Allergies: Reviewed Family history: Reviewed Physical examination HEENT: Oral mucosa moist no pallor or icterus Neck: Supple no JVD Chest: Clear to auscultation anteriorly CVS: Regular rate and rhythm S1 and S2 heard Abdomen: Soft nontender no suprapubic masses no organomegaly appreciable Extremity: Dry skin less than 1+ peripheral edema Musculoskeletal: No joint effusion noted in knees and ankle Neurological: Alert awake Dermatology: No petechial rashes Psychiatry: No evidence of any agitation and aggression noted Assessment and plan Refractory hyperkalemia needing renal replacement therapy yesterday Will dialyze for 3-1/2 hours today Metabolic acidosis corrected, Continue to monitor potassium level Renal tubular acidosis increase fludrocortisone to 0.1 twice a day Discontinue Lasix start the patient on chlorthalidone 25 mg once a day Patient must maintain a low potassium diet, avoid non-steroidal drugs We'll continue to follow and make recommendation from renal standpoint Objective - Vital Signs Vital signs: Vital Signs - 12hr 05/17/18 05/18/18 05/18/18 22:00 00:11 04:11 Temperature 97.8 F 97.9 F Pulse Rate 96 H 85 70 Respiratory 18 16 Rate Blood Pressure 153/76 134/81 O2 Sat by Pulse 99 98 Oximetry 05/18/18 07:37 Temperature 98.3 F Pulse Rate Respiratory 16 Rate Blood Pressure 122/74 O2 Sat by Pulse Oximetry - Lab 05/13/18 06:06 05/18/18 06:04 Most recent lab results Calcium 8.7 mg/dL (8.4-10.2) 05/18/18 06:04 Medications & Allergies - Medications Allergies/Adverse Reactions: Allergies NSAIDS (Non-Steroidal Anti-Inflamma Allergy (Verified 05/06/18 02:49) Bleeding lisinopril Adverse Reaction (Verified 05/06/18 02:49) Unknown Home Medications: Home Medications Medication Instructions Recorded Confirmed Last Taken Type Ambien 10 mg PO HS 05/06/18 05/06/18 Unknown History Losartan 100 mg PO DAILY 05/06/18 05/06/18 Unknown History Simvastatin 40 mg PO HS 05/06/18 05/06/18 Unknown History Xanax 1 mg PO TID PRN 05/06/18 05/06/18 Unknown History Active Medications: Generic Name Dose Route Start Last Admin Trade Name Freq PRN Reason Stop Dose Admin Acetaminophen 650 mg 05/06/18 06:42 Tylenol PO Q4H PRN Pain MILD(1-3)/Fever >100.5/DUARTE Alprazolam 1 mg 05/06/18 06:56 05/18/18 06:24 Xanax PO 1 mg TID PRN Administration Anxiety Amlodipine Besylate 5 mg 05/14/18 10:29 05/17/18 10:54 Norvasc PO 5 mg QDAY PIERO Administration Lipase/Protease/Amylase 1 each 05/13/18 11:01 Pancreazletitia Guzman 10,500 Unit FEEDTUBE PRN PRN For Clogged Feeding Tube Atorvastatin Calcium 40 mg 05/07/18 22:00 05/17/18 21:09 Lipitor PO 40 mg QHS PIERO Administration Carvedilol 3.125 mg 05/14/18 22:00 05/17/18 21:09 Coreg PO 3.125 mg BID PIERO Administration Clopidogrel Bisulfate 75 mg 05/08/18 10:00 05/17/18 10:52 Plavix PO 75 mg QDAY PIERO Administration Enoxaparin Sodium 40 mg 05/08/18 10:00 05/17/18 10:56 Lovenox SUB-Q 40 mg QDAY@1000 PIERO Administration Fludrocortisone Acetate 0.1 mg 05/17/18 10:00 05/17/18 10:52 Florinef PO 0.1 mg QDAY PIERO Administration Furosemide 40 mg 05/12/18 11:00 05/18/18 04:59 Lasix IV 40 mg DAILY@0600 PIERO Administration Hydromorphone HCl 1 mg 05/06/18 17:49 05/18/18 04:40 Dilaudid IV 1 mg Q4H PRN Administration Pain , Severe (7-10) Sodium Chloride 100 mls @ 999 mls/hr 05/17/18 15:40 Nacl 0.9% IV ADELIA PRN Hypotension Isosorbide Mononitrate 30 mg 05/11/18 10:00 05/17/18 10:55 Imdur PO 30 mg QDAY PIERO Administration Lansoprazole 30 mg 05/14/18 10:00 05/17/18 10:57 Prevacid Solutab FEEDTUBE 30 mg QDAY PIERO Administration Ondansetron HCl 4 mg 05/06/18 06:42 05/16/18 09:52 Zofran IV 4 mg Q8H PRN Administration Nausea And Vomiting Oxycodone/Acetaminophen 2 tab 05/11/18 11:00 05/17/18 21:09 Percocet 5/325 PO 2 tab Q4H PRN Administration Pain, Moderate (4-6) Simple Syrup 15 ml 05/13/18 11:01 Simple Syrup FEEDTUBE PRN PRN Hypoglycemia Simple Syrup 30 ml 05/13/18 11:01 Simple Syrup FEEDTUBE PRN PRN Hypoglycemia Sodium Bicarbonate 325 mg 05/13/18 11:01 Sodium Bicarbonate FEEDTUBE PRN PRN For Clogged Feeding Tube Sodium Chloride 10 ml 05/06/18 10:00 05/17/18 21:10 Sodium Chloride Flush Syringe 10 Ml IV 10 ml BID PIERO Administration Sodium Chloride 10 ml 05/06/18 06:42 Sodium Chloride Flush Syringe 10 Ml IV PRN PRN LINE FLUSH Sodium Polystyrene Sulfonate 30 gm 05/17/18 12:00 05/18/18 04:59 Kionex PO Not Given Q6HR PIERO Zolpidem Tartrate 10 mg 05/07/18 00:00 05/17/18 22:07 Ambien PO 10 mg QHS PRN Administration Insomnia
[2018-05-18] MEDS ORDERED: NACL 0.9% 100 ML IV PRN (09:19)
[2018-05-18] MEDS ORDERED: CALCIUM CHLORIDE 1,000 MG in NACL 0.9% 100 ML IV ONE (09:54)
--- NOTE | 2018-05-18 09:59 | Progress Note ---
Assessment and Plan Assessment and plan: 48-year-old male admitted for J-tube malfunction and has been having recurrent hyperkalemia He is alert and oriented. History of surgery for perforated ulcer --Persistent Hyperkalemia, refractory Calcium chloride1 amp IV,albuterol inh Nephrology following --Unstable angina stress test abnormal s/p LT cardiac cath which showed known severe multi-vessel CAD medical management recommended --Severe Protein calorie Malnutrition cont oral and tube feeding J tube determined by GI not to be clogged nub card tender following --Anemia of chronic disease -H/H stable --Acute on chronic abd pain/chronic pain syndrome stable on PRN narcotics --h/o Gastric bypass 2008 stable --h/o Perforated PUD continue PPI --h/o CAD s/p CABG and stent placement cont home meds --HTN Continue current antihypertensives and when necessary medications --Physical deconditioning Physical therapy occupational therapy --CODE STATUS Full Code Consults and recommendations noted and appreciated History Interval history: Patient seen and examined medical records reviewed Persistent hyperkalemia being treated Nephrology evaluated and initiated hemodialysis as needed Patient feels slightly better complaints of generalized weakness Alert awake oriented Vital signs noted Hospitalist Physical - Constitutional Vitals: Temp Pulse Resp BP Pulse Ox 98.3 F 70 16 122/74 98 05/18/18 07:37 05/18/18 04:11 05/18/18 07:37 05/18/18 07:37 05/18/18 04:11 General appearance: Present: no acute distress, cachectic (pt appears very thin) - EENT Eyes: Present: PERRL, EOM intact - Neck Neck: Present: supple, normal ROM - Respiratory Respiratory effort: normal Respiratory: bilateral: diminished, negative: rales, rhonchi, wheezing - Cardiovascular Rhythm: regular Heart Sounds: Present: S1 & S2 - Extremities Extremities: no ischemia, No edema - Abdominal General gastrointestinal: soft, non-tender, non-distended, normal bowel sounds - Integumentary Integumentary: Present: clear, warm - Psychiatric Psychiatric: appropriate mood/affect, cooperative - Neurologic Neurologic: CNII-XII intact, moves all extremities Results - Labs CBC & Chem 7: 05/19/18 05:47 05/19/18 05:47 Labs: Laboratory Last Values WBC 4.3 K/mm3 (4.5-11.0) L 05/13/18 06:06 RBC 2.85 M/mm3 (3.65-5.03) L 05/13/18 06:06 Hgb 8.5 gm/dl (11.8-15.2) L 05/13/18 06:06 Hct 25.5 % (35.5-45.6) L 05/13/18 06:06 MCV 90 fl (84-94) 05/13/18 06:06 MCH 30 pg (28-32) 05/13/18 06:06 MCHC 33 % (32-34) 05/13/18 06:06 RDW 14.6 % (13.2-15.2) 05/13/18 06:06 Plt Count 265 K/mm3 (140-440) 05/13/18 06:06 Lymph % (Auto) 19.1 % (13.4-35.0) 05/13/18 06:06 [place] % (Auto) 7.0 % (0.0-7.3) 05/13/18 06:06 Eos % (Auto) 5.5 % (0.0-4.3) H 05/13/18 06:06 Baso % (Auto) 0.9 % (0.0-1.8) 05/13/18 06:06 Lymph # 0.8 K/mm3 (1.2-5.4) L 05/13/18 06:06 [place] # 0.3 K/mm3 (0.0-0.8) 05/13/18 06:06 Eos # 0.2 K/mm3 (0.0-0.4) 05/13/18 06:06 Baso # 0.0 K/mm3 (0.0-0.1) 05/13/18 06:06 Seg Neutrophils % 67.5 % (40.0-70.0) 05/13/18 06:06 Seg Neutrophils # 2.9 K/mm3 (1.8-7.7) 05/13/18 06:06 PT 14.0 Sec. (12.2-14.9) 05/09/18 05:16 INR 1.02 (0.87-1.13) 05/09/18 05:16 APTT 24.4 Sec. (24.2-36.6) 05/09/18 05:16 D-Dimer 479.07 ng/mlDDU (0-234) H 05/05/18 20:49 Sodium 136 mmol/L (137-145) L 05/18/18 06:04 Potassium 6.2 mmol/L (3.6-5.0) H* 05/18/18 06:04 Chloride 99.9 mmol/L (98-107) 05/18/18 06:04 Carbon Dioxide 28 mmol/L (22-30) 05/18/18 06:04 Anion Gap 14 mmol/L 05/18/18 06:04 BUN 11 mg/dL (9-20) 05/18/18 06:04 Creatinine 1.0 mg/dL (0.8-1.5) 05/18/18 06:04 Estimated GFR > 60 ml/min 05/18/18 06:04 BUN/Creatinine Ratio 11 % 05/18/18 06:04 Glucose 92 mg/dL (75-100) 05/18/18 06:04 POC Glucose 189 (70-105) H 05/17/18 16:38 Osmolality 286 Mosm/kg 05/16/18 10:58 Calcium 8.7 mg/dL (8.4-10.2) 05/18/18 06:04 Total Bilirubin 0.20 mg/dL (0.1-1.2) 05/10/18 06:10 AST 52 units/L (5-40) H 05/10/18 06:10 ALT 36 units/L (7-56) 05/10/18 06:10 Alkaline Phosphatase 81 units/L (35-129) 05/10/18 06:10 Total Creatine Kinase 33 units/L (55-170) L 05/06/18 12:11 CK-MB (CK-2) 1.1 ng/mL (0.0-4.0) 05/06/18 12:11 CK-MB (CK-2) Rel Index 3.3 (0-4) 05/06/18 12:11 Troponin T < 0.010 ng/mL (0.00-0.029) 05/06/18 12:11 Total Protein 5.7 g/dL (6.3-8.2) L 05/10/18 06:10 Albumin 2.5 g/dL (3.9-5) L 05/10/18 06:10 Albumin/Globulin Ratio 0.8 % 05/10/18 06:10 Lipase 17 units/L (13-60) 05/05/18 20:49 Urine Osmolality 184 Mosm/kg 05/16/18 12:16 Urine Potassium 1.00 mmol/L 05/16/18 12:16 Hepatitis A IgM Ab Non-reactive (NonReactive) 05/17/18 19:00 Hep Bs Antigen Non-reactive (Negative) 05/17/18 19:00 Hep B Core IgM Ab Non-reactive (NonReactive) 05/17/18 19:00 Hepatitis C Antibody Non-reactive (NonReactive) 05/17/18 19:00 Blood Type A POSITIVE 05/05/18 20:49 Antibody Screen Negative 05/05/18 20:49 Nutrition/Malnutrition Assess - Dietary Evaluation Nutrition/Malnutrition Findings: Nutrition Notes Start: 05/06/18 10:29 Freq: Status: Active Protocol: Document 05/17/18 11:45 KH (Rec: 05/17/18 11:56 [email or web address]) Co-Sign 05/17/18 11:45 OL Nutrition Notes Initial or Follow up Brief Note Current Diagnosis Coronary Artery Disease Hypertension Other Pertinent Diagnosis J-Tube, CABG, Gastric Bypass ( 2008) Current Diet TF + Renal/full liquid Height 6 ft 1 in Weight 64.9 kg [place] Body Weight (kg) 83.63 BMI 18.8 Weight change and time frame weight obtined from bed scale Subjective/Other Information Pt. f/u for formula change and K-levels. Observed Nepro infusing at 25 ml/hr. Per pt., TF was initiated last night. Pt. continues to express concern for J-tube malfunction . Burn Absent Trauma Absent GI Symptoms Vomiting Minimum of two criteria Yes Interpretation of Weight Loss (severe) > 20% in 1 year Body Fat Depletion Moderate depletion (severe) Muscle Mass Moderate Depletion (severe) #2 Nutrition Diagnosis Altered GI function Diagnosis Progress(for reassessment Continues documentation) #1 Nutrition Diagnosis Malnutrition Diagnosis Progress(for reassessment Continues documentation) Nutrition Intervention Follow-Up By: 05/19/18 Additional Comments F/u for TF infusing at rate, K labs
[2018-05-18] MEDS: PERCOCET 5/325 PO PRN ×3 (10:28→20:31)
[2018-05-18] MEDS ORDERED: PROVENTIL IH ONE (11:00)
[2018-05-18] MEDS: FLORINEF PO SCH (15:24)
[2018-05-18] MEDS: THALITONE PO SCH (16:14)
[2018-05-18] MEDS: LOVENOX SUB-Q SCH (16:14)
[2018-05-18] MEDS: IMDUR PO SCH (16:15)
[2018-05-18] MEDS: SODIUM CHLORIDE FLUSH SYRINGE 10 ML IV SCH ×2 (16:15→21:56)
[2018-05-18] MEDS: PLAVIX PO SCH (16:15)
[2018-05-18] MEDS: NORVASC PO SCH (16:15)
[2018-05-18] MEDS: COREG PO SCH ×2 (16:15→21:55)
[2018-05-18] MEDS: PREVACID SOLUTAB FEEDTUBE SCH (16:15)
[2018-05-18] MEDS: AMBIEN PO PRN (23:22)
[2018-05-19] MEDS: DILAUDID IV PRN ×6 (02:12→23:04)
[2018-05-19] MEDS: PERCOCET 5/325 PO PRN ×4 (04:19→20:19)
[2018-05-19] MEDS: KIONEX PO SCH ×3 (06:04→18:41)
[2018-05-19] MEDS: XANAX PO PRN ×3 (06:05→21:29)
[2018-05-19 06:50] LABS: Basophils % (Auto) 0.6 % (0.0-1.8); Eosinophils # (Auto) 0.3 K/mm3 (0.0-0.4); Eosinophils % (Auto) 5.5 % (0.0-4.3); Hematocrit 28.4 % (35.5-45.6); Hemoglobin 9.3 gm/dl (11.8-15.2); Lymphocytes # (Auto) 1.4 K/mm3 (1.2-5.4); Lymphocytes % (Auto) 27.7 % (13.4-35.0); Mean Corpuscular HGB Conc 33 % (32-34); Mean Corpuscular Volume 91 fl (84-94); Monocytes # (Auto) 0.5 K/mm3 (0.0-0.8); Monocytes % (Auto) 10.6 % (0.0-7.3); Platelet Count 147 K/mm3 (140-440); Red Blood Count 3.12 M/mm3 (3.65-5.03); Red Cell Distribution Width 15.2 % (13.2-15.2)
[2018-05-19 08:06] LABS: BUN/Creatinine Ratio 7; Blood Urea Nitrogen 6 mg/dL (9-20); Calcium 8.8 mg/dL (8.4-10.2); Hemolysis Index 2
--- NOTE | 2018-05-19 08:44 | Progress Note ---
Subjective Principal diagnosis: J-tube malfunction Interval history: Patient was seen today for follow-up of multiple renal related issues No complaints of any chest pain pressure or shortness of breath patient is also currently on Kayexalate Interdisciplinary notes that also reviewed Events of 24 hours vitals labs intake output medications were reviewed Past medical history: Reviewed Family history: Reviewed Social history: Reviewed Allergies: Reviewed Physical examination: Vitals: Reviewed HEENT: No pallor or icterus oral mucosa moist Neck: Supple no JVD no thyromegaly Chest: Bilateral clear to auscultation anteriorly Heart: Regular rate and rhythm S1-S2 heard no S3-S4 Abdomen: Soft nontender no voluntary guarding rigidity rebound Extremity: Dry skin less than 1+ peripheral edema Psychiatric: No evidence of agitation and aggression noted Dermatology: No petechial rashes Labs and x-rays: Reviewed from today Assessment and plan Hyperkalemia: Likely due to type IV renal tubular acidosis status post to hemodialysis treatment patient has been initiated on fludrocortisone as well as chlorthalidone which she will need to continue with, , if his potassium is stable tomorro his dialysis catheter, can be removed and patient can be discharged to follow up in the office next week Metabolic acidosis: Corrected patient will need to take sodium bicarbonate tablet 30 mg twice a day At this time I would like to discontinue Kayexalate and see how he does without it/ if needed we can consider placing him on a small dose of VELTASSA Mild hyponatremia will need to monitor and follow Renal function stable Mild anemia: Multifactorial History of hyperkalemia in the past this has been a chronic issue patient has been advised to follow a strict low potassium diet If he is stable he will need to have obesity potassium drawn for at least 3-4 weeks followed by monthly potassium, We'll continue to follow and make recommendation for renal standpoint Objective - Vital Signs Vital signs: Vital Signs - 12hr 05/18/18 05/18/18 05/18/18 21:31 21:55 21:56 Temperature Pulse Rate 72 Respiratory 18 18 Rate Blood Pressure 130/72 O2 Sat by Pulse Oximetry 05/18/18 05/18/18 05/19/18 22:26 23:20 02:12 Temperature 98.0 F Pulse Rate 60 Respiratory 18 17 18 Rate Blood Pressure 130/87 O2 Sat by Pulse 100 Oximetry 05/19/18 05/19/18 05/19/18 02:42 04:19 05:18 Temperature Pulse Rate Respiratory 18 16 18 Rate Blood Pressure O2 Sat by Pulse Oximetry 05/19/18 05/19/18 05/19/18 05:34 06:04 06:34 Temperature 97.6 F Pulse Rate 57 L Respiratory 17 18 18 Rate Blood Pressure 134/85 O2 Sat by Pulse 98 Oximetry 05/19/18 07:40 Temperature 97.9 F Pulse Rate 58 L Respiratory 18 Rate Blood Pressure 107/72 O2 Sat by Pulse 97 Oximetry - Lab 05/19/18 05:47 05/19/18 05:47 Most recent lab results Calcium 8.8 mg/dL (8.4-10.2) 05/19/18 05:47 Medications & Allergies - Medications Allergies/Adverse Reactions: Allergies NSAIDS (Non-Steroidal Anti-Inflamma Allergy (Verified 05/06/18 02:49) Bleeding lisinopril Adverse Reaction (Verified 05/06/18 02:49) Unknown Home Medications: Home Medications Medication Instructions Recorded Confirmed Last Taken Type Ambien 10 mg PO HS 05/06/18 05/06/18 Unknown History Losartan 100 mg PO DAILY 05/06/18 05/06/18 Unknown History Simvastatin 40 mg PO HS 05/06/18 05/06/18 Unknown History Xanax 1 mg PO TID PRN 05/06/18 05/06/18 Unknown History Active Medications: Generic Name Dose Route Start Last Admin Trade Name Freq PRN Reason Stop Dose Admin Acetaminophen 650 mg 05/06/18 06:42 Tylenol PO Q4H PRN Pain MILD(1-3)/Fever >100.5/DUARTE Alprazolam 1 mg 05/06/18 06:56 05/19/18 06:05 Xanax PO 1 mg TID PRN Administration Anxiety Amlodipine Besylate 5 mg 05/14/18 10:29 05/18/18 16:15 Norvasc PO 5 mg QDAY PIERO Administration Lipase/Protease/Amylase 1 each 05/13/18 11:01 Pancreaze 10,500 Unit FEEDTUBE PRN PRN For Clogged Feeding Tube Atorvastatin Calcium 40 mg 05/07/18 22:00 05/18/18 21:55 Lipitor PO 40 mg QHS PIERO Administration Carvedilol 3.125 mg 05/14/18 22:00 05/18/18 21:55 Coreg PO 3.125 mg BID PIERO Administration Chlorthalidone 25 mg 05/18/18 10:00 05/18/18 16:14 Thalitone PO 25 mg QDAY PIERO Administration Clopidogrel Bisulfate 75 mg 05/08/18 10:00 05/18/18 16:15 Plavix PO 75 mg QDAY PIERO Administration Enoxaparin Sodium 40 mg 05/08/18 10:00 05/18/18 16:14 Lovenox SUB-Q 40 mg QDAY@1000 PIERO Administration Fludrocortisone Acetate 0.2 mg 05/18/18 09:20 05/18/18 15:24 Florinef PO 0.2 mg QDAY PIERO Administration Hydromorphone HCl 1 mg 05/06/18 17:49 05/19/18 06:04 Dilaudid IV 1 mg Q4H PRN Administration Pain , Severe (7-10) Sodium Chloride 100 mls @ 999 mls/hr 05/18/18 09:19 Nacl 0.9% IV ADELIA PRN Hypotension Isosorbide Mononitrate 30 mg 05/11/18 10:00 05/18/18 16:15 Imdur PO 30 mg QDAY PIERO Administration Lansoprazole 30 mg 05/14/18 10:00 05/18/18 16:15 Prevacid Solutab FEEDTUBE 30 mg QDAY PIERO Administration Ondansetron HCl 4 mg 05/06/18 06:42 05/16/18 09:52 Zofran IV 4 mg Q8H PRN Administration Nausea And Vomiting Oxycodone/Acetaminophen 2 tab 05/11/18 11:00 05/19/18 04:19 Percocet 5/325 PO 2 tab Q4H PRN Administration Pain, Moderate (4-6) Simple Syrup 15 ml 05/13/18 11:01 Simple Syrup FEEDTUBE PRN PRN Hypoglycemia Simple Syrup 30 ml 05/13/18 11:01 Simple Syrup FEEDTUBE PRN PRN Hypoglycemia Sodium Bicarbonate 325 mg 05/13/18 11:01 Sodium Bicarbonate FEEDTUBE PRN PRN For Clogged Feeding Tube Sodium Chloride 10 ml 05/06/18 10:00 05/18/18 21:56 Sodium Chloride Flush Syringe 10 Ml IV 10 ml BID PIERO Administration Sodium Chloride 10 ml 05/06/18 06:42 Sodium Chloride Flush Syringe 10 Ml IV PRN PRN LINE FLUSH Sodium Polystyrene Sulfonate 30 gm 05/17/18 12:00 05/19/18 06:04 Kionex PO Not Given Q6HR PIERO Zolpidem Tartrate 10 mg 05/07/18 00:00 05/18/18 23:22 Ambien PO 10 mg QHS PRN Administration Insomnia
[2018-05-19] MEDS: PLAVIX PO SCH (09:38)
[2018-05-19] MEDS: COREG PO SCH ×2 (09:40→21:29)
[2018-05-19] MEDS: NORVASC PO SCH (09:42)
[2018-05-19] MEDS: SODIUM CHLORIDE FLUSH SYRINGE 10 ML IV SCH ×2 (09:45→21:29)
[2018-05-19] MEDS: FLORINEF PO SCH (09:45)
[2018-05-19] MEDS: LOVENOX SUB-Q SCH (09:46)
[2018-05-19] MEDS: IMDUR PO SCH (09:46)
[2018-05-19] MEDS: THALITONE PO SCH (09:47)
[2018-05-19] MEDS: PREVACID SOLUTAB FEEDTUBE SCH (09:47)
[2018-05-19] MEDS: AMBIEN PO PRN (23:04)
[2018-05-20] MEDS: DILAUDID IV PRN ×5 (03:46→22:03)
[2018-05-20] MEDS: PERCOCET 5/325 PO PRN ×4 (06:02→20:31)
[2018-05-20] MEDS: XANAX PO PRN ×3 (06:03→22:04)
[2018-05-20] MEDS: PLAVIX PO SCH (09:31)
[2018-05-20] MEDS: COREG PO SCH ×2 (09:32→22:03)
[2018-05-20] MEDS: IMDUR PO SCH (09:33)
[2018-05-20] MEDS: NORVASC PO SCH (09:33)
[2018-05-20] MEDS: THALITONE PO SCH (09:34)
[2018-05-20] MEDS: FLORINEF PO SCH (09:35)
[2018-05-20] MEDS: LOVENOX SUB-Q SCH (09:35)
[2018-05-20] MEDS: SODIUM CHLORIDE FLUSH SYRINGE 10 ML IV SCH ×2 (09:39→22:04)
[2018-05-20] MEDS: PREVACID SOLUTAB FEEDTUBE SCH (09:40)
[2018-05-20 11:11] LABS: BUN/Creatinine Ratio 6; Blood Urea Nitrogen 7 mg/dL (9-20); Calcium 8.1 mg/dL (8.4-10.2); Hemolysis Index 7
--- NOTE | 2018-05-20 11:23 | Event Note ---
Date: 05/20/18 Patient has indwelling 20 Fr J tube. No 20 Fr J tube available in the hospital. chemical laboratory technician has ordered one. Once it arrives, J tube can be exchanged.
--- NOTE | 2018-05-20 13:08 | Progress Note ---
Subjective Principal diagnosis: J-tube malfunction Interval history: Patient was seen today for follow-up on multiple renal related issues Doing better potassium normal Vitals labs intake output medications were reviewed Social history: Reviewed Allergies: Reviewed Family history: Reviewed Physical examination HEENT: Oral mucosa moist no pallor or icterus Neck: Supple no JVD Chest: Clear to auscultation anteriorly CVS: Regular rate and rhythm S1 and S2 heard Abdomen: Soft nontender no suprapubic masses no organomegaly appreciable Extremity: Dry skin less than 1+ peripheral edema Musculoskeletal: No joint effusion noted in knees and ankle Neurological: Alert awake Dermatology: No petechial rashes Psychiatry: No evidence of any agitation and aggression noted A/P Hyperkalemia: NoW responding well to medical treatment Dialysis catheter can be removed. 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 Patient has history of intermittent hyperkalemia even remotely in the past He is stable for discharge Basic metabolic profile on Wednesday to be seen in the office on next Wednesday or Wednesday Objective - Vital Signs Vital signs: Vital Signs - 12hr 05/20/18 05/20/18 05/20/18 03:30 03:46 04:16 Temperature 98.5 F Pulse Rate Respiratory 18 20 16 Rate Blood Pressure 188/103 O2 Sat by Pulse Oximetry 05/20/18 05/20/18 05/20/18 05:58 06:02 07:02 Temperature 98.1 F Pulse Rate 60 Respiratory 18 18 18 Rate Blood Pressure 139/86 O2 Sat by Pulse 99 Oximetry 05/20/18 05/20/18 05/20/18 08:33 09:32 09:33 Temperature 98.2 F Pulse Rate 67 82 82 Respiratory 18 Rate Blood Pressure 124/65 125/65 125/65 O2 Sat by Pulse 99 Oximetry - Lab 05/19/18 05:47 05/20/18 10:29 Most recent lab results Calcium 8.1 mg/dL (8.4-10.2) L 05/20/18 10:29 Medications & Allergies - Medications Allergies/Adverse Reactions: Allergies NSAIDS (Non-Steroidal Anti-Inflamma Allergy (Verified 05/06/18 02:49) Bleeding lisinopril Adverse Reaction (Verified 05/06/18 02:49) Unknown Home Medications: Home Medications Medication Instructions Recorded Confirmed Last Taken Type Ambien 10 mg PO HS 05/06/18 05/06/18 Unknown History Losartan 100 mg PO DAILY 05/06/18 05/06/18 Unknown History Simvastatin 40 mg PO HS 05/06/18 05/06/18 Unknown History Xanax 1 mg PO TID PRN 05/06/18 05/06/18 Unknown History Active Medications: Generic Name Dose Route Start Last Admin Trade Name Freq PRN Reason Stop Dose Admin Acetaminophen 650 mg 05/06/18 06:42 Tylenol PO Q4H PRN Pain MILD(1-3)/Fever >100.5/DUARTE Alprazolam 1 mg 05/06/18 06:56 05/20/18 06:03 Xanax PO 1 mg TID PRN Administration Anxiety Amlodipine Besylate 5 mg 05/14/18 10:29 05/20/18 09:33 Norvasc PO 5 mg QDAY PIERO Administration Lipase/Protease/Amylase 1 each 05/13/18 11:01 Pancrefaye Guzman 10,500 Unit FEEDTUBE PRN PRN For Clogged Feeding Tube Atorvastatin Calcium 40 mg 05/07/18 22:00 05/19/18 21:29 Lipitor PO 40 mg QHS PIERO Administration Carvedilol 3.125 mg 05/14/18 22:00 05/20/18 09:32 Coreg PO 3.125 mg BID PIERO Administration Chlorthalidone 25 mg 05/18/18 10:00 05/20/18 09:34 Thalitone PO 25 mg QDAY PIERO Administration Clopidogrel Bisulfate 75 mg 05/08/18 10:00 05/20/18 09:31 Plavix PO 75 mg QDAY PIERO Administration Enoxaparin Sodium 40 mg 05/08/18 10:00 05/20/18 09:35 Lovenox SUB-Q 40 mg QDAY@1000 PIERO Administration Fludrocortisone Acetate 0.2 mg 05/18/18 09:20 05/20/18 09:35 Florinef PO 0.2 mg QDAY PIERO Administration Hydromorphone HCl 1 mg 05/06/18 17:49 05/20/18 13:03 Dilaudid IV 1 mg Q4H PRN Administration Pain , Severe (7-10) Sodium Chloride 100 mls @ 999 mls/hr 05/18/18 09:19 Nacl 0.9% IV ADELIA PRN Hypotension Isosorbide Mononitrate 30 mg 05/11/18 10:00 05/20/18 09:33 Imdur PO 30 mg QDAY PIERO Administration Lansoprazole 30 mg 05/14/18 10:00 05/20/18 09:40 Prevacid Solutab FEEDTUBE Not Given QDAY PIERO Ondansetron HCl 4 mg 05/06/18 06:42 05/16/18 09:52 Zofran IV 4 mg Q8H PRN Administration Nausea And Vomiting Oxycodone/Acetaminophen 2 tab 05/11/18 11:00 05/20/18 10:43 Percocet 5/325 PO 2 tab Q4H PRN Administration Pain, Moderate (4-6) Simple Syrup 15 ml 05/13/18 11:01 Simple Syrup FEEDTUBE PRN PRN Hypoglycemia Simple Syrup 30 ml 05/13/18 11:01 Simple Syrup FEEDTUBE PRN PRN Hypoglycemia Sodium Bicarbonate 325 mg 05/13/18 11:01 Sodium Bicarbonate FEEDTUBE PRN PRN For Clogged Feeding Tube Sodium Chloride 10 ml 05/06/18 10:00 05/20/18 09:39 Sodium Chloride Flush Syringe 10 Ml IV 10 ml BID PIERO Administration Sodium Chloride 10 ml 05/06/18 06:42 Sodium Chloride Flush Syringe 10 Ml IV PRN PRN LINE FLUSH Zolpidem Tartrate 10 mg 05/07/18 00:00 05/19/18 23:04 Ambien PO 10 mg QHS PRN Administration Insomnia
[2018-05-20] MEDS: ZOFRAN IV PRN (14:10)
--- NOTE | 2018-05-20 18:44 | Progress Note ---
Assessment and Plan Assessment and plan: 48-year-old male admitted for J-tube malfunction and has been having recurrent hyperkalemia He is alert and oriented. History of surgery for perforated ulcer And received hemodialysis as needed per nephrology, GI has evaluated the patient Advised to consult IR . --Malfunctioning J-tube; GI recommend IR consult, consult placed For possible replacement of J-tube Continue oral diet[patient only tolerates clear liquids] --Persistent Hyperkalemia, improved Patient received hemodialysis per nephrology HD as needed --Unstable angina stress test abnormal s/p LT cardiac cath which showed known severe multi-vessel CAD medical management recommended --Severe Protein calorie Malnutrition cont oral and tube feeding J tube determined by GI not to be clogged central processing technician following --Anemia of chronic disease -H/H stable --Acute on chronic abd pain/chronic pain syndrome stable on PRN narcotics --h/o Gastric bypass 2008 stable --h/o Perforated PUD continue PPI --h/o CAD s/p CABG and stent placement cont home meds --HTN Continue current antihypertensives and when necessary medications --Physical deconditioning Physical therapy occupational therapy --CODE STATUS Full Code Consults and recommendations noted and appreciated History Interval history: Patient seen and examined medical records reviewed Patient feels slightly better, J-tube is malfunctioning GI evaluated the patient recommend IR consult Alert awake oriented 3 Vital signs reviewed Hospitalist Physical - Constitutional Vitals: Temp Pulse Resp BP Pulse Ox 98.3 F 79 18 135/84 100 05/20/18 15:03 05/20/18 15:03 05/20/18 15:03 05/20/18 15:03 05/20/18 15:03 General appearance: Present: no acute distress, cachectic (pt appears very thin), disheveled - EENT Eyes: Present: PERRL, EOM intact - Neck Neck: Present: supple, normal ROM - Respiratory Respiratory effort: normal Respiratory: bilateral: diminished, negative: rales, rhonchi, wheezing - Cardiovascular Rhythm: regular Heart Sounds: Present: S1 & S2 - Extremities Extremities: no ischemia, No edema - Abdominal General gastrointestinal: soft, non-tender, non-distended, normal bowel sounds - Integumentary Integumentary: Present: clear, warm - Psychiatric Psychiatric: appropriate mood/affect, cooperative - Neurologic Neurologic: moves all extremities Results - Labs CBC & Chem 7: 02/28/19 05:47 05/20/18 10:29 Labs: Laboratory Last Values WBC 5.0 K/mm3 (4.5-11.0) 05/19/18 05:47 RBC 3.12 M/mm3 (3.65-5.03) L 05/19/18 05:47 Hgb 9.3 gm/dl (11.8-15.2) L 05/19/18 05:47 Hct 28.4 % (35.5-45.6) L 05/19/18 05:47 MCV 91 fl (84-94) 05/19/18 05:47 MCH 30 pg (28-32) 05/19/18 05:47 MCHC 33 % (32-34) 05/19/18 05:47 RDW 15.2 % (13.2-15.2) 05/19/18 05:47 Plt Count 147 K/mm3 (140-440) 05/19/18 05:47 Lymph % (Auto) 27.7 % (13.4-35.0) 05/19/18 05:47 [place] % (Auto) 10.6 % (0.0-7.3) H 05/19/18 05:47 Eos % (Auto) 5.5 % (0.0-4.3) H 05/19/18 05:47 Baso % (Auto) 0.6 % (0.0-1.8) 05/19/18 05:47 Lymph # 1.4 K/mm3 (1.2-5.4) 05/19/18 05:47 [place] # 0.5 K/mm3 (0.0-0.8) 05/19/18 05:47 Eos # 0.3 K/mm3 (0.0-0.4) 05/19/18 05:47 Baso # 0.0 K/mm3 (0.0-0.1) 05/19/18 05:47 Seg Neutrophils % 55.6 % (40.0-70.0) 05/19/18 05:47 Seg Neutrophils # 2.8 K/mm3 (1.8-7.7) 05/19/18 05:47 PT 14.0 Sec. (12.2-14.9) 05/09/18 05:16 INR 1.02 (0.87-1.13) 05/09/18 05:16 APTT 24.4 Sec. (24.2-36.6) 05/09/18 05:16 D-Dimer 479.07 ng/mlDDU (0-234) H 05/05/18 20:49 Sodium 135 mmol/L (137-145) L 05/20/18 10:29 Potassium 4.5 mmol/L (3.6-5.0) 05/20/18 10:29 Chloride 97.4 mmol/L (98-107) L 05/20/18 10:29 Carbon Dioxide 24 mmol/L (22-30) 05/20/18 10:29 Anion Gap 18 mmol/L 05/20/18 10:29 BUN 7 mg/dL (9-20) L 05/20/18 10:29 Creatinine 1.1 mg/dL (0.8-1.5) 05/20/18 10:29 Estimated GFR > 60 ml/min 05/20/18 10:29 BUN/Creatinine Ratio 6 % 05/20/18 10:29 Glucose 177 mg/dL (75-100) H 05/20/18 10:29 POC Glucose 189 (70-105) H 05/17/18 16:38 Osmolality 286 Mosm/kg 05/16/18 10:58 Calcium 8.1 mg/dL (8.4-10.2) L 05/20/18 10:29 Total Bilirubin 0.20 mg/dL (0.1-1.2) 05/10/18 06:10 AST 52 units/L (5-40) H 05/10/18 06:10 ALT 36 units/L (7-56) 05/10/18 06:10 Alkaline Phosphatase 81 units/L (35-129) 05/10/18 06:10 Total Creatine Kinase 33 units/L (55-170) L 05/06/18 12:11 CK-MB (CK-2) 1.1 ng/mL (0.0-4.0) 05/06/18 12:11 CK-MB (CK-2) Rel Index 3.3 (0-4) 05/06/18 12:11 Troponin T < 0.010 ng/mL (0.00-0.029) 05/06/18 12:11 Total Protein 5.7 g/dL (6.3-8.2) L 05/10/18 06:10 Albumin 2.5 g/dL (3.9-5) L 05/10/18 06:10 Albumin/Globulin Ratio 0.8 % 05/10/18 06:10 Lipase 17 units/L (13-60) 05/05/18 20:49 Urine Osmolality 184 Mosm/kg 05/16/18 12:16 Urine Potassium 1.00 mmol/L 05/16/18 12:16 Hepatitis A IgM Ab Non-reactive (NonReactive) 05/17/18 19:00 Hep Bs Antigen Non-reactive (Negative) 05/17/18 19:00 Hep B Core IgM Ab Non-reactive (NonReactive) 05/17/18 19:00 Hepatitis C Antibody Non-reactive (NonReactive) 05/17/18 19:00 Blood Type A POSITIVE 05/05/18 20:49 Antibody Screen Negative 05/05/18 20:49 Nutrition/Malnutrition Assess - Dietary Evaluation Nutrition/Malnutrition Findings: Nutrition Notes Start: 05/06/18 10:29 Freq: Status: Active Protocol: Document 05/19/18 12:34 (Rec: 05/19/18 12:49 [email or web address]) Co-Sign 05/19/18 12:34 LP Nutrition Notes Initial or Follow up Reassessment Current Diagnosis Coronary Artery Disease Hypertension Other Pertinent Diagnosis J-Tube, CABG, Gastric Bypass ( 2008) Current Diet TF + Renal/full liquid Labs/Tests K: 5.0 Pertinent Medications Reviewed Height 6 ft 1 in Weight 66 kg [place] Body Weight (kg) 83.63 BMI 19.2 Weight change and time frame Wt obtained from bed scale Subjective/Other Information Pt f/u for Tf restart and K labs. Pt. TF still not running due to J-tube complications. GI to see pt. today. Hosiery Mender performed nutrition focus physical exam and noticed moderate muscle and fat wasting on temporal, orbital, clavicle and shoulder regions. Pt. stated he can still only hold down small amounts of juice. Pt. will continue to be followed for TPN need. Pt. has recieved TPN in the past. Burn Absent Trauma Absent GI Symptoms Vomiting Minimum of two criteria Yes Interpretation of Weight Loss (severe) > 20% in 1 year Body Fat Depletion Moderate depletion (severe) Muscle Mass Moderate Depletion (severe) #2 Nutrition Diagnosis Altered GI function Diagnosis Progress(for reassessment Continues documentation) #1 Nutrition Diagnosis Malnutrition Diagnosis Progress(for reassessment Continues documentation) Is patient on ventilator? No Is Patient Ambulatory and/or Out of Bed Yes REE-([facility]-ambulatory/OOB) [ NUTR.MSJOOB] Calculation Used for Recommendations [facility] Additional Notes Pro needs: 79-99 g/day (1.2-1. 5 g/kg BW) Fluid needs: 1 ml/kcal Nutrition Intervention Nutrition Support: Nepro at 45mL/hr. 200mL flush q4h Kcal 1,944 Protein (gm) 87 Fluid (mL) 785 Fiber (gm) 28 Add Supplement/Snack (indicate name/kcal D/C /protein ) Goal #1 TF or TPN initiation to best meet nutritional needs Goal #2 Weight maintenance Anticipated Discharge Needs: Unknown at this time Follow-Up By: 05/23/18 Additional Comments F/u for POC, GI doctor f/u
--- NOTE | 2018-05-20 18:48 | Progress Note ---
Assessment and Plan Assessment and plan: 48-year-old male admitted for J-tube malfunction and has been having recurrent hyperkalemia He is alert and oriented. History of surgery for perforated ulcer And received hemodialysis as needed per nephrology, GI has evaluated the patient Advised to consult IR . --Malfunctioning J-tube; IR evaluation and recommendations noted and appreciated J tube #20[which patient has] he is not available in the hospital Special order placed from draw bench operator helper, will be replaced when available Meanwhile we will start TPN --Persistent Hyperkalemia, improved, normal range today Patient received hemodialysis per nephrology HD as needed --Unstable angina stress test abnormal s/p LT cardiac cath which showed known severe multi-vessel CAD medical management recommended --Severe Protein calorie Malnutrition J tube malfunctioning, start TPN till Jtube is replaced --Anemia of chronic disease; H/H stable --Acute on chronic abd pain/chronic pain syndrome stable on PRN narcotics --h/o Gastric bypass 2008 --h/o Perforated PUD, continue PPI --h/o CAD s/p CABG and stent placement, cont home meds --HTN; Continue current antihypertensives and when necessary medications --Physical deconditioning Physical therapy occupational therapy --CODE STATUS Full Code Consults and recommendations noted and appreciated History Interval history: Patient seen and examined medical records reviewed Patient has malfunctioning of J-tube, IR evaluated the patient Patient is concerned about his nutrition status Will consider TPN Alert awake oriented Vital signs noted Hospitalist Physical - Constitutional Vitals: Temp Pulse Resp BP Pulse Ox 98.3 F 79 18 135/84 100 05/20/18 15:03 05/20/18 15:03 05/20/18 15:03 05/20/18 15:03 05/20/18 15:03 General appearance: Present: no acute distress, cachectic (pt appears very thin), disheveled - EENT Eyes: Present: PERRL, EOM intact - Neck Neck: Present: supple, normal ROM - Respiratory Respiratory effort: normal Respiratory: bilateral: diminished, negative: rales, rhonchi, wheezing - Cardiovascular Rhythm: regular Heart Sounds: Present: S1 & S2 - Extremities Extremities: no ischemia, No edema - Abdominal General gastrointestinal: soft, non-tender, non-distended, normal bowel sounds - Integumentary Integumentary: Present: clear, warm - Psychiatric Psychiatric: appropriate mood/affect, cooperative - Neurologic Neurologic: moves all extremities Results - Labs CBC & Chem 7: 05/19/18 05:47 05/20/18 10:29 Labs: Laboratory Last Values WBC 5.0 K/mm3 (4.5-11.0) 05/19/18 05:47 RBC 3.12 M/mm3 (3.65-5.03) L 05/19/18 05:47 Hgb 9.3 gm/dl (11.8-15.2) L 05/19/18 05:47 Hct 28.4 % (35.5-45.6) L 05/19/18 05:47 MCV 91 fl (84-94) 05/19/18 05:47 MCH 30 pg (28-32) 05/19/18 05:47 MCHC 33 % (32-34) 05/19/18 05:47 RDW 15.2 % (13.2-15.2) 05/19/18 05:47 Plt Count 147 K/mm3 (140-440) 05/19/18 05:47 Lymph % (Auto) 27.7 % (13.4-35.0) 05/19/18 05:47 [place] % (Auto) 10.6 % (0.0-7.3) H 05/19/18 05:47 Eos % (Auto) 5.5 % (0.0-4.3) H 05/19/18 05:47 Baso % (Auto) 0.6 % (0.0-1.8) 05/19/18 05:47 Lymph # 1.4 K/mm3 (1.2-5.4) 05/19/18 05:47 [place] # 0.5 K/mm3 (0.0-0.8) 05/19/18 05:47 Eos # 0.3 K/mm3 (0.0-0.4) 05/19/18 05:47 Baso # 0.0 K/mm3 (0.0-0.1) 05/19/18 05:47 Seg Neutrophils % 55.6 % (40.0-70.0) 05/19/18 05:47 Seg Neutrophils # 2.8 K/mm3 (1.8-7.7) 05/19/18 05:47 PT 14.0 Sec. (12.2-14.9) 05/09/18 05:16 INR 1.02 (0.87-1.13) 05/09/18 05:16 APTT 24.4 Sec. (24.2-36.6) 05/09/18 05:16 D-Dimer 479.07 ng/mlDDU (0-234) H 05/05/18 20:49 Sodium 135 mmol/L (137-145) L 05/20/18 10:29 Potassium 4.5 mmol/L (3.6-5.0) 05/20/18 10:29 Chloride 97.4 mmol/L (98-107) L 05/20/18 10:29 Carbon Dioxide 24 mmol/L (22-30) 05/20/18 10:29 Anion Gap 18 mmol/L 05/20/18 10:29 BUN 7 mg/dL (9-20) L 05/20/18 10:29 Creatinine 1.1 mg/dL (0.8-1.5) 05/20/18 10:29 Estimated GFR > 60 ml/min 05/20/18 10:29 BUN/Creatinine Ratio 6 % 05/20/18 10:29 Glucose 177 mg/dL (75-100) H 05/20/18 10:29 POC Glucose 189 (70-105) H 05/17/18 16:38 Osmolality 286 Mosm/kg 05/16/18 10:58 Calcium 8.1 mg/dL (8.4-10.2) L 05/20/18 10:29 Total Bilirubin 0.20 mg/dL (0.1-1.2) 05/10/18 06:10 AST 52 units/L (5-40) H 05/10/18 06:10 ALT 36 units/L (7-56) 05/10/18 06:10 Alkaline Phosphatase 81 units/L (35-129) 05/10/18 06:10 Total Creatine Kinase 33 units/L (55-170) L 05/06/18 12:11 CK-MB (CK-2) 1.1 ng/mL (0.0-4.0) 05/06/18 12:11 CK-MB (CK-2) Rel Index 3.3 (0-4) 05/06/18 12:11 Troponin T < 0.010 ng/mL (0.00-0.029) 05/06/18 12:11 Total Protein 5.7 g/dL (6.3-8.2) L 05/10/18 06:10 Albumin 2.5 g/dL (3.9-5) L 05/10/18 06:10 Albumin/Globulin Ratio 0.8 % 05/10/18 06:10 Lipase 17 units/L (13-60) 05/05/18 20:49 Urine Osmolality 184 Mosm/kg 05/16/18 12:16 Urine Potassium 1.00 mmol/L 05/16/18 12:16 Hepatitis A IgM Ab Non-reactive (NonReactive) 05/17/18 19:00 Hep Bs Antigen Non-reactive (Negative) 05/17/18 19:00 Hep B Core IgM Ab Non-reactive (NonReactive) 05/17/18 19:00 Hepatitis C Antibody Non-reactive (NonReactive) 05/17/18 19:00 Blood Type A POSITIVE 05/05/18 20:49 Antibody Screen Negative 05/05/18 20:49 Nutrition/Malnutrition Assess - Dietary Evaluation Nutrition/Malnutrition Findings: Nutrition Notes Start: 05/06/18 10:29 Freq: Status: Active Protocol: Document 05/19/18 12:34 (Rec: 05/19/18 12:49 [email or web address]) Co-Sign 05/19/18 12:34 LP Nutrition Notes Initial or Follow up Reassessment Current Diagnosis Coronary Artery Disease Hypertension Other Pertinent Diagnosis J-Tube, CABG, Gastric Bypass ( 2008) Current Diet TF + Renal/full liquid Labs/Tests K: 5.0 Pertinent Medications Reviewed Height 6 ft 1 in Weight 66 kg [place] Body Weight (kg) 83.63 BMI 19.2 Weight change and time frame Wt obtained from bed scale Subjective/Other Information Pt f/u for Tf restart and K labs. Pt. TF still not running due to J-tube complications. GI to see pt. today. Manager Steel performed nutrition focus physical exam and noticed moderate muscle and fat wasting on temporal, orbital, clavicle and shoulder regions. Pt. stated he can still only hold down small amounts of juice. Pt. will continue to be followed for TPN need. Pt. has recieved TPN in the past. Burn Absent Trauma Absent GI Symptoms Vomiting Minimum of two criteria Yes Interpretation of Weight Loss (severe) > 20% in 1 year Body Fat Depletion Moderate depletion (severe) Muscle Mass Moderate Depletion (severe) #2 Nutrition Diagnosis Altered GI function Diagnosis Progress(for reassessment Continues documentation) #1 Nutrition Diagnosis Malnutrition Diagnosis Progress(for reassessment Continues documentation) Is patient on ventilator? No Is Patient Ambulatory and/or Out of Bed Yes REE-([facility]-ambulatory/OOB) [ NUTR.MSJOOB] Calculation Used for Recommendations [facility] Additional Notes Pro needs: 79-99 g/day (1.2-1. 5 g/kg BW) Fluid needs: 1 ml/kcal Nutrition Intervention Nutrition Support: Nepro at 45mL/hr. 200mL flush q4h Kcal 1,944 Protein (gm) 87 Fluid (mL) 785 Fiber (gm) 28 Add Supplement/Snack (indicate name/kcal D/C /protein ) Goal #1 TF or TPN initiation to best meet nutritional needs Goal #2 Weight maintenance Anticipated Discharge Needs: Unknown at this time Follow-Up By: 05/23/18 Additional Comments F/u for POC, GI doctor f/u
[2018-05-20] MEDS: AMBIEN PO PRN (22:59)
[2018-05-21] MEDS: PERCOCET 5/325 PO PRN ×4 (00:36→21:25)
[2018-05-21] MEDS: DILAUDID IV PRN ×4 (02:05→23:22)
[2018-05-21 05:52] LABS: Basophils % (Auto) 0.6 % (0.0-1.8); Eosinophils # (Auto) 0.2 K/mm3 (0.0-0.4); Eosinophils % (Auto) 4.4 % (0.0-4.3); Hematocrit 27.9 % (35.5-45.6); Hemoglobin 9.2 gm/dl (11.8-15.2); Lymphocytes # (Auto) 1.2 K/mm3 (1.2-5.4); Lymphocytes % (Auto) 25.5 % (13.4-35.0); Mean Corpuscular HGB Conc 33 % (32-34); Mean Corpuscular Volume 90 fl (84-94); Monocytes # (Auto) 0.4 K/mm3 (0.0-0.8); Monocytes % (Auto) 8.6 % (0.0-7.3); Platelet Count 146 K/mm3 (140-440); Red Cell Distribution Width 15.4 % (13.2-15.2)
[2018-05-21] MEDS: XANAX PO PRN ×3 (06:06→21:25)
[2018-05-21 07:38] LABS: BUN/Creatinine Ratio 7; Blood Urea Nitrogen 8 mg/dL (9-20); Calcium 7.9 mg/dL (8.4-10.2); Hemolysis Index 6
--- NOTE | 2018-05-21 08:21 | Progress Note ---
Assessment and Plan Assessment and plan: 48-year-old male admitted for J-tube malfunction and has been having recurrent hyperkalemia He is alert and oriented. History of surgery for perforated ulcer And received hemodialysis as needed per nephrology, GI has evaluated the patient Advised to consult IR, IR evaluated the patient, size of the J-tube is not available in the hospital Special order placed from labor relations representative, we'll start TPN/PPN in the intervening period --Malfunctioning J-tube; IR evaluation and recommendations noted and appreciated J tube #20[which patient has] he is not available in the hospital Special order placed from laundry aide, will be replaced when available Meanwhile we will start TPN/PPN --Persistent Hyperkalemia, resolved Patient received hemodialysis as needed Vas-Cath was removed as patient no longer needs hemodialysis, --Unstable angina stress test abnormal s/p LT cardiac cath which showed known severe multi-vessel CAD medical management recommended --Severe Protein calorie Malnutrition J tube malfunctioning, start TPN till Jtube is replaced --Anemia of chronic disease; H/H stable --Acute on chronic abd pain/chronic pain syndrome stable on PRN narcotics --h/o Gastric bypass 2008 --h/o Perforated PUD, continue PPI --h/o CAD s/p CABG and stent placement, cont home meds --HTN; Continue current antihypertensives and when necessary medications --Physical deconditioning Physical therapy occupational therapy --CODE STATUS Full Code Consults and recommendations noted and appreciated History Interval history: Patient seen and examined and medical records reviewed The patient complains of generalized weakness Alert awake oriented 3 vital signs noted Hospitalist Physical - Constitutional Vitals: Temp Pulse Resp BP Pulse Ox 97.7 F 58 L 16 111/78 97 05/21/18 04:45 05/21/18 08:09 05/21/18 06:36 05/21/18 04:45 05/21/18 04:45 General appearance: Present: no acute distress, cachectic (pt appears very thin), disheveled - EENT Eyes: Present: PERRL, EOM intact - Neck Neck: Present: supple, normal ROM - Respiratory Respiratory effort: normal Respiratory: bilateral: diminished, negative: rales, rhonchi, wheezing - Cardiovascular Rhythm: regular Heart Sounds: Present: S1 & S2 - Extremities Extremities: no ischemia, No edema - Abdominal General gastrointestinal: soft, non-tender, non-distended, normal bowel sounds, other (abdominal dressing in place) - Integumentary Integumentary: Present: clear, warm - Psychiatric Psychiatric: appropriate mood/affect, cooperative - Neurologic Neurologic: moves all extremities Results - Labs CBC & Chem 7: 05/21/18 05:29 05/21/18 05:29 Labs: Laboratory Last Values WBC 4.6 K/mm3 (4.5-11.0) 05/21/18 05:29 RBC 3.10 M/mm3 (3.65-5.03) L 05/21/18 05:29 Hgb 9.2 gm/dl (11.8-15.2) L 05/21/18 05:29 Hct 27.9 % (35.5-45.6) L 05/21/18 05:29 MCV 90 fl (84-94) 05/21/18 05:29 MCH 30 pg (28-32) 05/21/18 05:29 MCHC 33 % (32-34) 05/21/18 05:29 RDW 15.4 % (13.2-15.2) H 05/21/18 05:29 Plt Count 146 K/mm3 (140-440) 05/21/18 05:29 Lymph % (Auto) 25.5 % (13.4-35.0) 05/21/18 05:29 [place] % (Auto) 8.6 % (0.0-7.3) H 05/21/18 05:29 Eos % (Auto) 4.4 % (0.0-4.3) H 05/21/18 05:29 Baso % (Auto) 0.6 % (0.0-1.8) 05/21/18 05:29 Lymph # 1.2 K/mm3 (1.2-5.4) 05/21/18 05:29 [place] # 0.4 K/mm3 (0.0-0.8) 05/21/18 05:29 Eos # 0.2 K/mm3 (0.0-0.4) 05/21/18 05:29 Baso # 0.0 K/mm3 (0.0-0.1) 05/21/18 05:29 Seg Neutrophils % 60.9 % (40.0-70.0) 05/21/18 05:29 Seg Neutrophils # 2.8 K/mm3 (1.8-7.7) 05/21/18 05:29 PT 14.0 Sec. (12.2-14.9) 05/09/18 05:16 INR 1.02 (0.87-1.13) 05/09/18 05:16 APTT 24.4 Sec. (24.2-36.6) 05/09/18 05:16 D-Dimer 479.07 ng/mlDDU (0-234) H 05/05/18 20:49 Sodium 136 mmol/L (137-145) L 05/21/18 05:29 Potassium 4.5 mmol/L (3.6-5.0) 05/21/18 05:29 Chloride 99.6 mmol/L (98-107) 05/21/18 05:29 Carbon Dioxide 25 mmol/L (22-30) 05/21/18 05:29 Anion Gap 16 mmol/L 05/21/18 05:29 BUN 8 mg/dL (9-20) L 05/21/18 05:29 Creatinine 1.1 mg/dL (0.8-1.5) 05/21/18 05:29 Estimated GFR > 60 ml/min 05/21/18 05:29 BUN/Creatinine Ratio 7 % 05/21/18 05:29 Glucose 82 mg/dL (75-100) 05/21/18 05:29 POC Glucose 189 (70-105) H 05/17/18 16:38 Osmolality 286 Mosm/kg 05/16/18 10:58 Calcium 7.9 mg/dL (8.4-10.2) L 05/21/18 05:29 Total Bilirubin 0.20 mg/dL (0.1-1.2) 05/10/18 06:10 AST 52 units/L (5-40) H 05/10/18 06:10 ALT 36 units/L (7-56) 05/10/18 06:10 Alkaline Phosphatase 81 units/L (35-129) 05/10/18 06:10 Total Creatine Kinase 33 units/L (55-170) L 05/06/18 12:11 CK-MB (CK-2) 1.1 ng/mL (0.0-4.0) 05/06/18 12:11 CK-MB (CK-2) Rel Index 3.3 (0-4) 05/06/18 12:11 Troponin T < 0.010 ng/mL (0.00-0.029) 05/06/18 12:11 Total Protein 5.7 g/dL (6.3-8.2) L 05/10/18 06:10 Albumin 2.5 g/dL (3.9-5) L 05/10/18 06:10 Albumin/Globulin Ratio 0.8 % 05/10/18 06:10 Lipase 17 units/L (13-60) 05/05/18 20:49 Urine Osmolality 184 Mosm/kg 05/16/18 12:16 Urine Potassium 1.00 mmol/L 05/16/18 12:16 Hepatitis A IgM Ab Non-reactive (NonReactive) 05/17/18 19:00 Hep Bs Antigen Non-reactive (Negative) 05/17/18 19:00 Hep B Core IgM Ab Non-reactive (NonReactive) 05/17/18 19:00 Hepatitis C Antibody Non-reactive (NonReactive) 05/17/18 19:00 Blood Type A POSITIVE 05/05/18 20:49 Antibody Screen Negative 05/05/18 20:49 Nutrition/Malnutrition Assess - Dietary Evaluation Nutrition/Malnutrition Findings: Nutrition Notes Start: 05/06/18 10:29 Freq: Status: Active Protocol: Document 05/19/18 12:34 (Rec: 05/19/18 12:49 [email or web address]) Co-Sign 05/19/18 12:34 LP Nutrition Notes Initial or Follow up Reassessment Current Diagnosis Coronary Artery Disease Hypertension Other Pertinent Diagnosis J-Tube, CABG, Gastric Bypass ( 2008) Current Diet TF + Renal/full liquid Labs/Tests K: 5.0 Pertinent Medications Reviewed Height 6 ft 1 in Weight 66 kg [place] Body Weight (kg) 83.63 BMI 19.2 Weight change and time frame Wt obtained from bed scale Subjective/Other Information Pt f/u for Tf restart and K labs. Pt. TF still not running due to J-tube complications. GI to see pt. today. Die Cast Engineer performed nutrition focus physical exam and noticed moderate muscle and fat wasting on temporal, orbital, clavicle and shoulder regions. Pt. stated he can still only hold down small amounts of juice. Pt. will continue to be followed for TPN need. Pt. has recieved TPN in the past. Burn Absent Trauma Absent GI Symptoms Vomiting Minimum of two criteria Yes Interpretation of Weight Loss (severe) > 20% in 1 year Body Fat Depletion Moderate depletion (severe) Muscle Mass Moderate Depletion (severe) #2 Nutrition Diagnosis Altered GI function Diagnosis Progress(for reassessment Continues documentation) #1 Nutrition Diagnosis Malnutrition Diagnosis Progress(for reassessment Continues documentation) Is patient on ventilator? No Is Patient Ambulatory and/or Out of Bed Yes REE-([facility]-ambulatory/OOB) [ NUTR.MSJOOB] Calculation Used for Recommendations [facility] Additional Notes Pro needs: 79-99 g/day (1.2-1. 5 g/kg BW) Fluid needs: 1 ml/kcal Nutrition Intervention Nutrition Support: Nepro at 45mL/hr. 200mL flush q4h Kcal 1,944 Protein (gm) 87 Fluid (mL) 785 Fiber (gm) 28 Add Supplement/Snack (indicate name/kcal D/C /protein ) Goal #1 TF or TPN initiation to best meet nutritional needs Goal #2 Weight maintenance Anticipated Discharge Needs: Unknown at this time Follow-Up By: 05/23/18 Additional Comments F/u for POC, GI doctor f/u
[2018-05-21] MEDS: FLORINEF PO SCH (10:06)
[2018-05-21] MEDS: THALITONE PO SCH (10:06)
[2018-05-21] MEDS: COREG PO SCH ×2 (10:06→21:26)
[2018-05-21] MEDS: IMDUR PO SCH (10:06)
[2018-05-21] MEDS: NORVASC PO SCH (10:06)
[2018-05-21] MEDS: PLAVIX PO SCH (10:07)
[2018-05-21] MEDS: LOVENOX SUB-Q SCH (10:07)
[2018-05-21] MEDS: PREVACID SOLUTAB FEEDTUBE SCH (10:07)
[2018-05-21] MEDS: SODIUM CHLORIDE FLUSH SYRINGE 10 ML IV SCH ×2 (10:08→23:23)
--- NOTE | 2018-05-21 11:38 | Event Note ---
Date: 05/21/18 Patient will be started on PPN tonight
--- NOTE | 2018-05-21 13:12 | Progress Note ---
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 Continue Florinef for now * He also most likely had a prerenal component. Has resolved as well * No further need for dialysis at this time. His Vas-Cath has been removed * Plans for parenteral nutrition noted. Need to avoid potassium in his parenteral nutrition Subjective Date of service: 05/21/18 Principal diagnosis: J-tube malfunction Interval history: Patient is comfortable. Denies any shortness of breath. His Vas-Cath has been removed Objective - Vital Signs Vital signs: Vital Signs - 12hr 05/21/18 05/21/18 05/21/18 01:36 02:05 02:35 Temperature Pulse Rate Respiratory 18 18 18 Rate Blood Pressure O2 Sat by Pulse Oximetry 05/21/18 05/21/18 05/21/18 04:45 06:06 06:36 Temperature 97.7 F Pulse Rate 56 L Respiratory 18 18 16 Rate Blood Pressure 111/78 O2 Sat by Pulse 97 Oximetry 05/21/18 05/21/18 05/21/18 08:00 08:09 12:58 Temperature 97.6 F Pulse Rate 58 L 73 Respiratory 18 Rate Blood Pressure 99/71 126/80 O2 Sat by Pulse 100 Oximetry - General Appearance General appearance: well-developed, well-nourished, appears stated age EENT: PERRL, mucous membranes moist Neck: no JVD, no thyromegaly, no carotid bruit, supple Respiratory: Present: Clear to Ascultation Cardiology: regular, normal heart rate Gastrointestinal: normoactive bowel sounds, other (dressing noted in his abdominal wall) Integumentary: other (no edema) - Lab 05/21/18 05:29 05/21/18 05:29 Most recent lab results Calcium 7.9 mg/dL (8.4-10.2) L 05/21/18 05:29 Phosphorus 4.40 mg/dL (2.5-4.5) 05/21/18 08:25 Magnesium 1.80 mg/dL (1.7-2.3) 05/21/18 08:25 Medications & Allergies - Medications Allergies/Adverse Reactions: Allergies NSAIDS (Non-Steroidal Anti-Inflamma Allergy (Verified 05/06/18 02:49) Bleeding lisinopril Adverse Reaction (Verified 05/06/18 02:49) Unknown Home Medications: Home Medications Medication Instructions Recorded Confirmed Last Taken Type Ambien 10 mg PO HS 05/06/18 05/06/18 Unknown History Losartan 100 mg PO DAILY 05/06/18 05/06/18 Unknown History Simvastatin 40 mg PO HS 05/06/18 05/06/18 Unknown History Xanax 1 mg PO TID PRN 05/06/18 05/06/18 Unknown History Active Medications: Generic Name Dose Route Start Last Admin Trade Name Freq PRN Reason Stop Dose Admin Acetaminophen 650 mg 05/06/18 06:42 Tylenol PO Q4H PRN Pain MILD(1-3)/Fever >100.5/DUARTE Alprazolam 1 mg 05/06/18 06:56 05/21/18 06:06 Xanax PO 1 mg TID PRN Administration Anxiety Amlodipine Besylate 5 mg 05/14/18 10:29 05/21/18 10:06 Norvasc PO 5 mg QDAY PIERO Administration Lipase/Protease/Amylase 1 each 05/13/18 11:01 Pancreaze 10,500 Unit FEEDTUBE PRN PRN For Clogged Feeding Tube Atorvastatin Calcium 40 mg 05/07/18 22:00 05/20/18 22:04 Lipitor PO 40 mg QHS PIERO Administration Carvedilol 3.125 mg 05/14/18 22:00 05/21/18 10:06 Coreg PO 3.125 mg BID PIERO Administration Chlorthalidone 25 mg 05/18/18 10:00 05/21/18 10:06 Thalitone PO 25 mg QDAY PIERO Administration Clopidogrel Bisulfate 75 mg 05/08/18 10:00 05/21/18 10:07 Plavix PO 75 mg QDAY PIERO Administration Enoxaparin Sodium 40 mg 05/08/18 10:00 05/21/18 10:07 Lovenox SUB-Q 40 mg QDAY@1000 PIERO Administration Fludrocortisone Acetate 0.2 mg 05/18/18 09:20 05/21/18 10:06 Florinef PO 0.2 mg QDAY PIERO Administration Hydromorphone HCl 1 mg 05/21/18 10:58 Dilaudid IV Q8H PRN Pain , Severe (7-10) Sodium Chloride 100 mls @ 999 mls/hr 05/18/18 09:19 Nacl 0.9% IV ADELIA PRN Hypotension Amino Acids/Electrolytes/Dextrose 1,800 mls @ 75 mls/hr 05/21/18 20:00 Tpn Adult IV 05/22/18 19:59 DAILY@1999 [facility] Protocol Isosorbide Mononitrate 30 mg 05/11/18 10:00 05/21/18 10:06 Imdur PO 30 mg QDAY PIERO Administration Lansoprazole 30 mg 05/14/18 10:00 05/21/18 10:07 Prevacid Solutab FEEDTUBE 30 mg QDAY PIERO Administration Ondansetron HCl 4 mg 05/06/18 06:42 05/20/18 14:10 Zofran IV 4 mg Q8H PRN Administration Nausea And Vomiting Oxycodone/Acetaminophen 1 tab 05/21/18 10:58 Percocet 5/325 PO Q6H PRN Pain, Moderate (4-6) Simple Syrup 15 ml 05/13/18 11:01 Simple Syrup FEEDTUBE PRN PRN Hypoglycemia Simple Syrup 30 ml 05/13/18 11:01 Simple Syrup FEEDTUBE PRN PRN Hypoglycemia Sodium Bicarbonate 325 mg 05/13/18 11:01 Sodium Bicarbonate FEEDTUBE PRN PRN For Clogged Feeding Tube Sodium Chloride 10 ml 05/06/18 10:00 05/21/18 10:08 Sodium Chloride Flush Syringe 10 Ml IV 10 ml BID PIERO Administration Sodium Chloride 10 ml 05/06/18 06:42 Sodium Chloride Flush Syringe 10 Ml IV PRN PRN LINE FLUSH Zolpidem Tartrate 10 mg 05/07/18 00:00 05/20/18 22:59 Ambien PO 10 mg QHS PRN Administration Insomnia
[2018-05-21] MEDS: ZOFRAN IV PRN (17:46)
[2018-05-21] MEDS ORDERED: TPN ADULT 1,800 ML IV SCH (20:00)
[2018-05-21] MEDS: AMBIEN PO PRN (23:23)
[2018-05-22] MEDS: PERCOCET 5/325 PO PRN ×3 (03:29→17:51)
[2018-05-22] MEDS: XANAX PO PRN ×3 (06:07→20:32)
[2018-05-22] MEDS: DILAUDID IV PRN ×3 (07:38→23:22)
[2018-05-22 07:55] LABS: BUN/Creatinine Ratio 9; Blood Urea Nitrogen 9 mg/dL (9-20); Calcium 8.2 mg/dL (8.4-10.2); Hemolysis Index 15
[2018-05-22] MEDS: IMDUR PO SCH (10:50)
[2018-05-22] MEDS: THALITONE PO SCH (10:50)
[2018-05-22] MEDS: FLORINEF PO SCH (10:50)
[2018-05-22] MEDS: COREG PO SCH ×2 (10:50→22:26)
[2018-05-22] MEDS: PREVACID SOLUTAB FEEDTUBE SCH (10:50)
[2018-05-22] MEDS: PLAVIX PO SCH (10:50)
[2018-05-22] MEDS: NORVASC PO SCH (10:51)
[2018-05-22] MEDS: LOVENOX SUB-Q SCH (10:51)
--- NOTE | 2018-05-22 11:28 | Progress Note ---
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 Continue Florinef as well as chlorthalidone for now * He also most likely had a prerenal component. Has resolved as well * No further need for dialysis at this time. His Vas-Cath has been removed * Parenteral nutrition has been initiated. Continue without any potassium in his parenteral nutrition * Shall follow patient peripherally Subjective Date of service: 05/22/18 Principal diagnosis: J-tube malfunction Interval history: Patient is comfortable. PPN has been initiated. Denies any shortness of breath. Objective - Vital Signs Vital signs: Vital Signs - 12hr 05/21/18 05/22/18 05/22/18 23:52 03:29 03:32 Temperature 97.6 F Pulse Rate 69 Respiratory 18 18 18 Rate Respiratory Rate [Abdomen] Blood Pressure 122/78 Blood Pressure [Left] O2 Sat by Pulse 99 Oximetry 05/22/18 05/22/18 05/22/18 04:29 07:38 07:55 Temperature Pulse Rate Respiratory 18 20 Rate Respiratory 20 Rate [Abdomen] Blood Pressure Blood Pressure [Left] O2 Sat by Pulse Oximetry 05/22/18 05/22/18 05/22/18 08:17 08:24 09:46 Temperature 98.3 F Pulse Rate 54 L 73 Respiratory 18 Rate Respiratory Rate [Abdomen] Blood Pressure 151/91 Blood Pressure [Left] O2 Sat by Pulse 98 99 Oximetry 05/22/18 05/22/18 05/22/18 10:48 10:50 10:51 Temperature Pulse Rate 81 81 Respiratory 20 Rate Respiratory Rate [Abdomen] Blood Pressure 112/70 112/70 Blood Pressure 112/70 [Left] O2 Sat by Pulse Oximetry - General Appearance General appearance: appears stated age, chronically ill, frail EENT: PERRL, mucous membranes moist Neck: no JVD, no thyromegaly, no carotid bruit, supple Respiratory: Present: Clear to Ascultation Cardiology: regular, normal heart rate, S1S2, no murmurs Gastrointestinal: normoactive bowel sounds, other (abdominal dressing noted) Integumentary: other (no edema) - Lab 05/21/18 05:29 03/03/19 06:53 Most recent lab results Calcium 8.2 mg/dL (8.4-10.2) L 05/22/18 06:53 Phosphorus 4.40 mg/dL (2.5-4.5) 05/22/18 06:53 Magnesium 1.80 mg/dL (1.7-2.3) 05/22/18 06:53 Medications & Allergies - Medications Allergies/Adverse Reactions: Allergies NSAIDS (Non-Steroidal Anti-Inflamma Allergy (Verified 05/06/18 02:49) Bleeding lisinopril Adverse Reaction (Verified 05/06/18 02:49) Unknown Home Medications: Home Medications Medication Instructions Recorded Confirmed Last Taken Type Ambien 10 mg PO HS 05/06/18 05/06/18 Unknown History Losartan 100 mg PO DAILY 05/06/18 05/06/18 Unknown History Simvastatin 40 mg PO HS 05/06/18 05/06/18 Unknown History Xanax 1 mg PO TID PRN 05/06/18 05/06/18 Unknown History Active Medications: Generic Name Dose Route Start Last Admin Trade Name Freq PRN Reason Stop Dose Admin Acetaminophen 650 mg 05/06/18 06:42 Tylenol PO Q4H PRN Pain MILD(1-3)/Fever >100.5/DUARTE Alprazolam 1 mg 05/06/18 06:56 05/22/18 06:07 Xanax PO 1 mg TID PRN Administration Anxiety Amlodipine Besylate 5 mg 05/14/18 10:29 05/22/18 10:51 Norvasc PO Not Given QDAY PIERO Lipase/Protease/Amylase 1 each 05/13/18 11:01 Pancrefaye Guzman 10,500 Unit FEEDTUBE PRN PRN For Clogged Feeding Tube Atorvastatin Calcium 40 mg 05/07/18 22:00 05/21/18 21:25 Lipitor PO 40 mg QHS PIERO Administration Carvedilol 3.125 mg 05/14/18 22:00 05/22/18 10:50 Coreg PO 3.125 mg BID PIERO Administration Chlorthalidone 25 mg 05/18/18 10:00 05/22/18 10:50 Thalitone PO 25 mg QDAY PIERO Administration Clopidogrel Bisulfate 75 mg 05/08/18 10:00 05/22/18 10:50 Plavix PO 75 mg QDAY PIERO Administration Enoxaparin Sodium 40 mg 05/08/18 10:00 05/22/18 10:51 Lovenox SUB-Q 40 mg QDAY@1000 PIERO Administration Fludrocortisone Acetate 0.2 mg 05/18/18 09:20 05/22/18 10:50 Florinef PO 0.2 mg QDAY PIERO Administration Hydromorphone HCl 1 mg 05/21/18 10:58 05/22/18 07:38 Dilaudid IV 1 mg Q8H PRN Administration Pain , Severe (7-10) Sodium Chloride 100 mls @ 999 mls/hr 05/18/18 09:19 Nacl 0.9% IV ADELIA PRN Hypotension Amino Acids/Electrolytes/Dextrose 1,800 mls @ 75 mls/hr 05/21/18 20:00 05/21/18 20:07 Tpn Adult IV 05/22/18 19:59 75 mls/hr DAILY@2000 PIERO Administration Protocol Isosorbide Mononitrate 30 mg 05/11/18 10:00 05/22/18 10:50 Imdur PO 30 mg QDAY PIERO Administration Lansoprazole 30 mg 05/14/18 10:00 05/22/18 10:50 Prevacid Solutab FEEDTUBE 30 mg QDAY PIERO Administration Ondansetron HCl 4 mg 05/06/18 06:42 05/21/18 17:46 Zofran IV 4 mg Q8H PRN Administration Nausea And Vomiting Oxycodone/Acetaminophen 1 tab 05/21/18 10:58 05/22/18 03:29 Percocet 5/325 PO 1 tab Q6H PRN Administration Pain, Moderate (4-6) Simple Syrup 15 ml 05/13/18 11:01 Simple Syrup FEEDTUBE PRN PRN Hypoglycemia Simple Syrup 30 ml 05/13/18 11:01 Simple Syrup FEEDTUBE PRN PRN Hypoglycemia Sodium Bicarbonate 325 mg 05/13/18 11:01 Sodium Bicarbonate FEEDTUBE PRN PRN For Clogged Feeding Tube Sodium Chloride 10 ml 05/06/18 10:00 05/21/18 23:23 Sodium Chloride Flush Syringe 10 Ml IV 10 ml BID PIERO Administration Sodium Chloride 10 ml 05/06/18 06:42 Sodium Chloride Flush Syringe 10 Ml IV PRN PRN LINE FLUSH Zolpidem Tartrate 10 mg 05/07/18 00:00 05/21/18 23:23 Ambien PO 10 mg QHS PRN Administration Insomnia
[2018-05-22] MEDS: SODIUM CHLORIDE FLUSH SYRINGE 10 ML IV SCH ×2 (15:39→22:26)
--- NOTE | 2018-05-22 18:10 | Progress Note ---
Assessment and Plan Assessment and plan: 48-year-old male admitted for J-tube malfunction and has been having recurrent hyperkalemia He is alert and oriented. History of surgery for perforated ulcer And received hemodialysis as needed per nephrology, GI has evaluated the patient Advised to consult IR, IR evaluated the patient, size of the J-tube is not available in the hospital Special order placed from labor representative, we'll start TPN/PPN in the intervening period --Malfunctioning J-tube; IR evaluation and recommendations noted and appreciated J tube #20[which patient has] he is not available in the hospital Special order placed from employee relations advisor, will be replaced when available Meanwhile we will start TPN/PPN --Persistent Hyperkalemia, resolved Patient received hemodialysis , patient no longer needs hemodialysis, --Unstable angina stress test abnormal s/p LT cardiac cath which showed known severe multi-vessel CAD medical management recommended --Severe Protein calorie Malnutrition J tube malfunctioning, start TPN till Jtube is replaced --Anemia of chronic disease; H/H stable --Acute on chronic abd pain/chronic pain syndrome stable on PRN narcotics --h/o Gastric bypass 2008 --h/o Perforated PUD, continue PPI --h/o CAD s/p CABG and stent placement, cont home meds --HTN; Continue current antihypertensives and when necessary medications --Physical deconditioning Physical therapy occupational therapy --CODE STATUS Full Code Consults and recommendations noted and appreciated History Interval history: Patient seen and examined medical records reviewed No new events reported by the nursing staff Patient is receiving PPN, no new complaints Vital signs noted Alert awake oriented 3 Hospitalist Physical - Constitutional Vitals: Temp Pulse Resp BP Pulse Ox 98.0 F 93 H 18 144/86 100 05/22/18 17:45 05/22/18 17:45 05/22/18 17:45 05/22/18 17:45 05/22/18 17:45 General appearance: Present: no acute distress, cachectic (pt appears very thin), disheveled - EENT Eyes: Present: PERRL, EOM intact - Neck Neck: Present: supple, normal ROM - Respiratory Respiratory effort: normal Respiratory: bilateral: diminished, negative: rales, rhonchi, wheezing - Cardiovascular Rhythm: regular Heart Sounds: Present: S1 & S2 - Extremities Extremities: no ischemia, No edema - Abdominal General gastrointestinal: soft, non-tender, non-distended, normal bowel sounds, other (dressing in place) - Integumentary Integumentary: Present: clear, warm - Psychiatric Psychiatric: appropriate mood/affect, cooperative - Neurologic Neurologic: moves all extremities Results - Labs CBC & Chem 7: 05/21/18 05:29 05/22/18 06:53 Labs: Laboratory Last Values WBC 4.6 K/mm3 (4.5-11.0) 05/21/18 05:29 RBC 3.10 M/mm3 (3.65-5.03) L 05/21/18 05:29 Hgb 9.2 gm/dl (11.8-15.2) L 05/21/18 05:29 Hct 27.9 % (35.5-45.6) L 05/21/18 05:29 MCV 90 fl (84-94) 05/21/18 05:29 MCH 30 pg (28-32) 05/21/18 05:29 MCHC 33 % (32-34) 05/21/18 05:29 RDW 15.4 % (13.2-15.2) H 05/21/18 05:29 Plt Count 146 K/mm3 (140-440) 05/21/18 05:29 Lymph % (Auto) 25.5 % (13.4-35.0) 05/21/18 05:29 Tate % (Auto) 8.6 % (0.0-7.3) H 05/21/18 05:29 Eos % (Auto) 4.4 % (0.0-4.3) H 05/21/18 05:29 Baso % (Auto) 0.6 % (0.0-1.8) 05/21/18 05:29 Lymph # 1.2 K/mm3 (1.2-5.4) 05/21/18 05:29 Tate # 0.4 K/mm3 (0.0-0.8) 05/21/18 05:29 Eos # 0.2 K/mm3 (0.0-0.4) 05/21/18 05:29 Baso # 0.0 K/mm3 (0.0-0.1) 05/21/18 05:29 Seg Neutrophils % 60.9 % (40.0-70.0) 05/21/18 05:29 Seg Neutrophils # 2.8 K/mm3 (1.8-7.7) 05/21/18 05:29 PT 14.0 Sec. (12.2-14.9) 05/09/18 05:16 INR 1.02 (0.87-1.13) 05/09/18 05:16 APTT 24.4 Sec. (24.2-36.6) 05/09/18 05:16 D-Dimer 479.07 ng/mlDDU (0-234) H 05/05/18 20:49 Sodium 137 mmol/L (137-145) 05/22/18 06:53 Potassium 4.5 mmol/L (3.6-5.0) 05/22/18 06:53 Chloride 101.4 mmol/L (98-107) 05/22/18 06:53 Carbon Dioxide 24 mmol/L (22-30) 05/22/18 06:53 Anion Gap 16 mmol/L 05/22/18 06:53 BUN 9 mg/dL (9-20) 05/22/18 06:53 Creatinine 1.0 mg/dL (0.8-1.5) 05/22/18 06:53 Estimated GFR > 60 ml/min 05/22/18 06:53 BUN/Creatinine Ratio 9 % 05/22/18 06:53 Glucose 106 mg/dL (75-100) H 05/22/18 06:53 POC Glucose 203 (70-105) H 05/22/18 16:22 Osmolality 286 Mosm/kg 05/16/18 10:58 Calcium 8.2 mg/dL (8.4-10.2) L 05/22/18 06:53 Phosphorus 4.40 mg/dL (2.5-4.5) 05/22/18 06:53 Magnesium 1.80 mg/dL (1.7-2.3) 05/22/18 06:53 Total Bilirubin 0.20 mg/dL (0.1-1.2) 05/10/18 06:10 AST 52 units/L (5-40) H 05/10/18 06:10 ALT 36 units/L (7-56) 05/10/18 06:10 Alkaline Phosphatase 81 units/L (35-129) 05/10/18 06:10 Total Creatine Kinase 33 units/L (55-170) L 05/06/18 12:11 CK-MB (CK-2) 1.1 ng/mL (0.0-4.0) 05/06/18 12:11 CK-MB (CK-2) Rel Index 3.3 (0-4) 05/06/18 12:11 Troponin T < 0.010 ng/mL (0.00-0.029) 05/06/18 12:11 Total Protein 5.7 g/dL (6.3-8.2) L 05/10/18 06:10 Albumin 2.5 g/dL (3.9-5) L 05/10/18 06:10 Albumin/Globulin Ratio 0.8 % 05/10/18 06:10 Lipase 17 units/L (13-60) 05/05/18 20:49 Urine Osmolality 184 Mosm/kg 05/16/18 12:16 Urine Potassium 1.00 mmol/L 05/16/18 12:16 Hepatitis A IgM Ab Non-reactive (NonReactive) 05/17/18 19:00 Hep Bs Antigen Non-reactive (Negative) 05/17/18 19:00 Hep B Core IgM Ab Non-reactive (NonReactive) 05/17/18 19:00 Hepatitis C Antibody Non-reactive (NonReactive) 05/17/18 19:00 Blood Type A POSITIVE 05/05/18 20:49 Antibody Screen Negative 05/05/18 20:49 Nutrition/Malnutrition Assess - Dietary Evaluation Nutrition/Malnutrition Findings: Nutrition Notes Start: 05/06/18 10:29 Freq: Status: Active Protocol: Document 05/22/18 10:01 DANIEL (Rec: 05/22/18 10:03 [id number]) Nutrition Notes Initial or Follow up Reassessment Current Diagnosis Coronary Artery Disease Hypertension Other Pertinent Diagnosis J-Tube, CABG, Gastric Bypass ( 2008) Current Diet PPN at 75ml/hr and FL Labs/Tests Reviewed Pertinent Medications Reviewed Height 6 ft 1 in Weight 65.7 kg [place] Body Weight (kg) 83.63 BMI 19.1 Subjective/Other Information Day 2 PPN. PPN infusing at 75ml/hr. Percent of energy/protein needs met: 30%/87% Burn Absent Trauma Absent #2 Nutrition Diagnosis Altered GI function Diagnosis Progress(for reassessment Continues documentation) #1 Nutrition Diagnosis Malnutrition Diagnosis Progress(for reassessment Continues documentation) Is patient on ventilator? No Is Patient Ambulatory and/or Out of Bed Yes REE-([facility]-ambulatory/OOB) [ 2048.644 [email or web address]] Calculation Used for Recommendations [facility] Additional Notes Pro needs: 79-99 g/day (1.2-1. 5 g/kg BW) Fluid needs: 1 ml/kcal Nutrition Intervention Change Diet Order: PPN and FL diet Nutrition Support: PPN at 75ml/hr: , 4.4% amino acid, MVI, Thiamine Kcal 660 Protein (gm) 80 Carbohydrates (gm) 100 Fat (gm) 0 Fluid (mL) 1,800 Fiber (gm) 0 Goal #1 Meet kcal and protein needs as best as possible with PPN and FL diet Goal #2 Weight maintenance Anticipated Discharge Needs: Unknown at this time Follow-Up By: 05/23/18 Additional Comments Labs in AM: BMP, Mg, Phos
[2018-05-22] MEDS ORDERED: TPN ADULT 1,800 ML IV SCH (20:00)
[2018-05-22] MEDS: AMBIEN PO PRN (22:26)
[2018-05-23] MEDS: XANAX PO PRN ×3 (05:28→19:45)
[2018-05-23] MEDS: PERCOCET 5/325 PO PRN ×3 (05:28→17:25)
[2018-05-23 07:15] LABS: BUN/Creatinine Ratio 12; Blood Urea Nitrogen 11 mg/dL (9-20); Calcium 8.2 mg/dL (8.4-10.2); Hemolysis Index 5
[2018-05-23] MEDS: DILAUDID IV PRN ×3 (07:34→23:28)
[2018-05-23] MEDS: NORVASC PO SCH (09:56)
[2018-05-23] MEDS: PLAVIX PO SCH (09:56)
[2018-05-23] MEDS: IMDUR PO SCH (09:56)
[2018-05-23] MEDS: COREG PO SCH ×2 (09:56→22:02)
[2018-05-23] MEDS: LOVENOX SUB-Q SCH (09:57)
[2018-05-23] MEDS: PREVACID SOLUTAB FEEDTUBE SCH (09:58)
[2018-05-23] MEDS: THALITONE PO SCH (13:22)
[2018-05-23] MEDS: FLORINEF PO SCH (13:23)
--- NOTE | 2018-05-23 14:46 | Progress Note ---
Assessment and Plan Assessment and plan: 48-year-old male admitted for J-tube malfunction and has been having recurrent hyperkalemia, received hemodialysis as needed Hyperkalemia completely resolved, no further need for HD, Vas-Cath removed, GI has evaluated the patient Advised to consult IR, IR evaluated the patient, size of the J-tube is not available in the hospital Special order placed from veterinary laboratory technician, we'll start TPN/PPN in the intervening period --Malfunctioning J-tube; IR evaluation and recommendations noted and appreciated J tube #20[which patient has] he is not available in the hospital Special order placed from clin tech, will be replaced when available Meanwhile we will start TPN/PPN --Persistent Hyperkalemia, resolved Patient received hemodialysis ,no longer needs hemodialysis, --Unstable angina stress test abnormal s/p LT cardiac cath which showed known severe multi-vessel CAD medical management recommended --Severe Protein calorie Malnutrition J tube malfunctioning, start TPN till Jtube is replaced --Anemia of chronic disease; H/H stable --Acute on chronic abd pain/chronic pain syndrome stable on PRN narcotics --h/o Gastric bypass 2008 --h/o Perforated PUD, continue PPI --h/o CAD s/p CABG and stent placement, cont home meds --HTN; Continue current antihypertensives and when necessary medications --Physical deconditioning Physical therapy occupational therapy, patient refused therapy --CODE STATUS Full Code Consults and recommendations noted and appreciated Patient is awaiting for a J-tube replacement when J-tube is available History Interval history: Patient seen and examined medical records reviewed No new events reported by the nursing staff Patient alert awake oriented 3 Refusing physical therapy Vital signs reviewed Hospitalist Physical - Constitutional Vitals: Temp Pulse Resp BP Pulse Ox 98.3 F 94 H 19 134/83 98 05/23/18 11:39 05/23/18 09:56 05/23/18 11:39 05/23/18 11:39 05/23/18 06:02 General appearance: Present: no acute distress, cachectic (pt appears very thin), disheveled - EENT Eyes: Present: PERRL, EOM intact - Neck Neck: Present: supple, normal ROM - Respiratory Respiratory effort: normal Respiratory: bilateral: diminished, negative: rales, rhonchi, wheezing - Cardiovascular Rhythm: regular Heart Sounds: Present: S1 & S2 - Extremities Extremities: no ischemia, No edema - Abdominal General gastrointestinal: soft, non-tender, non-distended, normal bowel sounds - Integumentary Integumentary: Present: clear, warm - Psychiatric Psychiatric: appropriate mood/affect, cooperative - Neurologic Neurologic: CNII-XII intact, moves all extremities Results - Labs CBC & Chem 7: 05/21/18 05:29 05/23/18 06:37 Labs: Laboratory Last Values WBC 4.6 K/mm3 (4.5-11.0) 05/21/18 05:29 RBC 3.10 M/mm3 (3.65-5.03) L 05/21/18 05:29 Hgb 9.2 gm/dl (11.8-15.2) L 05/21/18 05:29 Hct 27.9 % (35.5-45.6) L 05/21/18 05:29 MCV 90 fl (84-94) 05/21/18 05:29 MCH 30 pg (28-32) 05/21/18 05:29 MCHC 33 % (32-34) 05/21/18 05:29 RDW 15.4 % (13.2-15.2) H 05/21/18 05:29 Plt Count 146 K/mm3 (140-440) 05/21/18 05:29 Lymph % (Auto) 25.5 % (13.4-35.0) 05/21/18 05:29 [place] % (Auto) 8.6 % (0.0-7.3) H 05/21/18 05:29 Eos % (Auto) 4.4 % (0.0-4.3) H 05/21/18 05:29 Baso % (Auto) 0.6 % (0.0-1.8) 05/21/18 05:29 Lymph # 1.2 K/mm3 (1.2-5.4) 05/21/18 05:29 Stephens # 0.4 K/mm3 (0.0-0.8) 05/21/18 05:29 Eos # 0.2 K/mm3 (0.0-0.4) 05/21/18 05:29 Baso # 0.0 K/mm3 (0.0-0.1) 05/21/18 05:29 Seg Neutrophils % 60.9 % (40.0-70.0) 05/21/18 05:29 Seg Neutrophils # 2.8 K/mm3 (1.8-7.7) 05/21/18 05:29 PT 14.0 Sec. (12.2-14.9) 05/09/18 05:16 INR 1.02 (0.87-1.13) 05/09/18 05:16 APTT 24.4 Sec. (24.2-36.6) 05/09/18 05:16 D-Dimer 479.07 ng/mlDDU (0-234) H 05/05/18 20:49 Sodium 141 mmol/L (137-145) 05/23/18 06:37 Potassium 4.5 mmol/L (3.6-5.0) 05/23/18 06:37 Chloride 103.9 mmol/L (98-107) 05/23/18 06:37 Carbon Dioxide 27 mmol/L (22-30) 05/23/18 06:37 Anion Gap 15 mmol/L 05/23/18 06:37 BUN 11 mg/dL (9-20) 05/23/18 06:37 Creatinine 0.9 mg/dL (0.8-1.5) 05/23/18 06:37 Estimated GFR > 60 ml/min 05/23/18 06:37 BUN/Creatinine Ratio 12 % 05/23/18 06:37 Glucose 136 mg/dL (75-100) H 05/23/18 06:37 POC Glucose 133 (70-105) H 05/23/18 07:02 Osmolality 286 Mosm/kg 05/16/18 10:58 Calcium 8.2 mg/dL (8.4-10.2) L 05/23/18 06:37 Phosphorus 3.90 mg/dL (2.5-4.5) 05/23/18 06:37 Magnesium 1.70 mg/dL (1.7-2.3) 05/23/18 06:37 Total Bilirubin 0.20 mg/dL (0.1-1.2) 05/10/18 06:10 AST 52 units/L (5-40) H 05/10/18 06:10 ALT 36 units/L (7-56) 05/10/18 06:10 Alkaline Phosphatase 81 units/L (35-129) 05/10/18 06:10 Total Creatine Kinase 33 units/L (55-170) L 05/06/18 12:11 CK-MB (CK-2) 1.1 ng/mL (0.0-4.0) 05/06/18 12:11 CK-MB (CK-2) Rel Index 3.3 (0-4) 05/06/18 12:11 Troponin T < 0.010 ng/mL (0.00-0.029) 05/06/18 12:11 Total Protein 5.7 g/dL (6.3-8.2) L 05/10/18 06:10 Albumin 2.5 g/dL (3.9-5) L 05/10/18 06:10 Albumin/Globulin Ratio 0.8 % 05/10/18 06:10 Lipase 17 units/L (13-60) 05/05/18 20:49 Urine Osmolality 184 Mosm/kg 05/16/18 12:16 Urine Potassium 1.00 mmol/L 05/16/18 12:16 Hepatitis A IgM Ab Non-reactive (NonReactive) 05/17/18 19:00 Hep Bs Antigen Non-reactive (Negative) 05/17/18 19:00 Hep B Core IgM Ab Non-reactive (NonReactive) 05/17/18 19:00 Hepatitis C Antibody Non-reactive (NonReactive) 05/17/18 19:00 Blood Type A POSITIVE 05/05/18 20:49 Antibody Screen Negative 05/05/18 20:49 Nutrition/Malnutrition Assess - Dietary Evaluation Nutrition/Malnutrition Findings: Nutrition Notes Start: 05/06/18 10:29 Freq: Status: Active Protocol: Document 05/23/18 12:33 LP (Rec: 05/23/18 12:36 LP [id number]) Nutrition Notes Initial or Follow up Reassessment Current Diagnosis Coronary Artery Disease Hypertension Other Pertinent Diagnosis J-Tube, CABG, Gastric Bypass ( 2008) Current Diet PPN at 75ml/hr and FL Labs/Tests Reviewed Pertinent Medications Reviewed Height 6 ft 1 in Weight 69.1 kg [place] Body Weight (kg) 83.63 BMI 20.0 Subjective/Other Information Day 3 PPN. Percent of energy/protein needs met: 32%/87% Burn Absent Trauma Absent #2 Nutrition Diagnosis Altered GI function Diagnosis Progress(for reassessment Continues documentation) #1 Nutrition Diagnosis Malnutrition Diagnosis Progress(for reassessment Continues documentation) Is patient on ventilator? No Is Patient Ambulatory and/or Out of Bed Yes REE-([facility]-ambulatory/OOB) [ 2092.844 NUTR.[email or web address]] Calculation Used for Recommendations [facility] Additional Notes Pro needs: 79-99 g/day (1.2-1. 5 g/kg BW) Fluid needs: 1 ml/kcal Nutrition Intervention Change Diet Order: PPN and [place] diet Nutrition Support: PPN at 75ml/hr: Lipids MVI, Thiamine Kcal 1,160 Protein (gm) 80 Carbohydrates (gm) 100 Fat (gm) 50 Fluid (mL) 2,050 Fiber (gm) 0 Goal #1 Meet kcal and protein needs as best as possible with PPN and [place] diet Goal #2 Weight maintenance Anticipated Discharge Needs: Unknown at this time Follow-Up By: 05/24/18 Additional Comments Labs in AM BMP, Mg, Phos
[2018-05-23] MEDS: SODIUM CHLORIDE FLUSH SYRINGE 10 ML IV SCH ×2 (15:39→22:05)
[2018-05-23] MEDS ORDERED: TPN ADULT 1,800 ML IV SCH (20:00)
[2018-05-23] MEDS ORDERED: INTRALIPID 20% 250 ML IV SCH (20:00)
[2018-05-23] MEDS: AMBIEN PO PRN (23:28)
[2018-05-24] MEDS: PERCOCET 5/325 PO PRN ×3 (02:39→16:48)
[2018-05-24] MEDS: XANAX PO PRN ×3 (06:09→18:39)
[2018-05-24 06:49] LABS: BUN/Creatinine Ratio 16; Blood Urea Nitrogen 13 mg/dL (9-20); Calcium 8.1 mg/dL (8.4-10.2); Hemolysis Index 16
[2018-05-24 06:51] LABS: Basophils % (Auto) 0.5 % (0.0-1.8); Eosinophils # (Auto) 0.1 K/mm3 (0.0-0.4); Eosinophils % (Auto) 3.7 % (0.0-4.3); Hemoglobin 8.1 gm/dl (11.8-15.2); Lymphocytes # (Auto) 1.2 K/mm3 (1.2-5.4); Lymphocytes % (Auto) 30.3 % (13.4-35.0); Mean Corpuscular HGB Conc 34 % (32-34); Mean Corpuscular Volume 89 fl (84-94); Monocytes # (Auto) 0.3 K/mm3 (0.0-0.8); Platelet Count 166 K/mm3 (140-440); Red Blood Count 2.69 M/mm3 (3.65-5.03)
[2018-05-24] MEDS: DILAUDID IV PRN ×3 (07:09→22:26)
--- NOTE | 2018-05-24 09:34 | Progress Note ---
Assessment and Plan Assessment and plan: 48-year-old male admitted for J-tube malfunction and has been having recurrent hyperkalemia, received hemodialysis as needed Hyperkalemia completely resolved, no further need for HD, Vas-Cath removed, GI has evaluated the patient Advised to consult IR, IR evaluated the patient, size of the J-tube is not available in the hospital Special order placed from labor relations analyst, we'll start TPN/PPN in the intervening period --Malfunctioning J-tube; IR evaluation and recommendations noted and appreciated J tube #20[which patient has] he is not available in the hospital Special order placed from outboard motor mechanic, will be replaced when available Meanwhile we will start TPN/PPN --Persistent Hyperkalemia, resolved Patient received hemodialysis ,no longer needs hemodialysis, --Unstable angina stress test abnormal s/p LT cardiac cath which showed known severe multi-vessel CAD medical management recommended --Severe Protein calorie Malnutrition J tube malfunctioning, start TPN till Jtube is replaced --Anemia of chronic disease; H/H stable --Acute on chronic abd pain/chronic pain syndrome stable on PRN narcotics --h/o Gastric bypass 2008 --h/o Perforated PUD, continue PPI --h/o CAD s/p CABG and stent placement, cont home meds --HTN; Continue current antihypertensives and when necessary medications --Physical deconditioning Physical therapy occupational therapy, patient refused therapy --CODE STATUS Full Code Consults and recommendations noted and appreciated Patient is awaiting for a J-tube replacement when J-tube is available History Interval history: Patient has not new complaints Awaiting for new J-tube Vital signs noted Hospitalist Physical - Constitutional Vitals: Temp Pulse Resp BP Pulse Ox 98.0 F 61 18 140/75 97 05/24/18 06:31 05/24/18 06:31 05/24/18 07:09 05/24/18 06:31 05/24/18 06:31 General appearance: Present: no acute distress, cachectic (pt appears very thin), disheveled - EENT Eyes: Present: PERRL - Neck Neck: Present: supple, normal ROM - Respiratory Respiratory effort: normal Respiratory: bilateral: diminished, negative: rales, rhonchi, wheezing - Cardiovascular Rhythm: regular Heart Sounds: Present: S1 & S2 - Extremities Extremities: no ischemia, No edema - Abdominal General gastrointestinal: soft, non-tender, non-distended, normal bowel sounds - Integumentary Integumentary: Present: clear, warm - Psychiatric Psychiatric: appropriate mood/affect, cooperative - Neurologic Neurologic: CNII-XII intact, moves all extremities Results - Labs CBC & Chem 7: 05/24/18 05:45 05/24/18 05:45 Labs: Laboratory Last Values WBC 4.0 K/mm3 (4.5-11.0) L 05/24/18 05:45 RBC 2.69 M/mm3 (3.65-5.03) L 05/24/18 05:45 Hgb 8.1 gm/dl (11.8-15.2) L 05/24/18 05:45 Hct 24.0 % (35.5-45.6) L 05/24/18 05:45 MCV 89 fl (84-94) 05/24/18 05:45 MCH 30 pg (28-32) 05/24/18 05:45 MCHC 34 % (32-34) 05/24/18 05:45 RDW 15.0 % (13.2-15.2) 05/24/18 05:45 Plt Count 166 K/mm3 (140-440) 05/24/18 05:45 Lymph % (Auto) 30.3 % (13.4-35.0) 05/24/18 05:45 [place] % (Auto) 8.0 % (0.0-7.3) H 05/24/18 05:45 Eos % (Auto) 3.7 % (0.0-4.3) 05/24/18 05:45 Baso % (Auto) 0.5 % (0.0-1.8) 05/24/18 05:45 Lymph # 1.2 K/mm3 (1.2-5.4) 05/24/18 05:45 [place] # 0.3 K/mm3 (0.0-0.8) 05/24/18 05:45 Eos # 0.1 K/mm3 (0.0-0.4) 05/24/18 05:45 Baso # 0.0 K/mm3 (0.0-0.1) 05/24/18 05:45 Seg Neutrophils % 57.5 % (40.0-70.0) 05/24/18 05:45 Seg Neutrophils # 2.3 K/mm3 (1.8-7.7) 05/24/18 05:45 PT 14.0 Sec. (12.2-14.9) 05/09/18 05:16 INR 1.02 (0.87-1.13) 05/09/18 05:16 APTT 24.4 Sec. (24.2-36.6) 05/09/18 05:16 D-Dimer 479.07 ng/mlDDU (0-234) H 05/05/18 20:49 Sodium 140 mmol/L (137-145) 05/24/18 05:45 Potassium 4.2 mmol/L (3.6-5.0) 05/24/18 05:45 Chloride 104.9 mmol/L (98-107) 05/24/18 05:45 Carbon Dioxide 26 mmol/L (22-30) 05/24/18 05:45 Anion Gap 13 mmol/L 05/24/18 05:45 BUN 13 mg/dL (9-20) 05/24/18 05:45 Creatinine 0.8 mg/dL (0.8-1.5) 05/24/18 05:45 Estimated GFR > 60 ml/min 05/24/18 05:45 BUN/Creatinine Ratio 16 % 05/24/18 05:45 Glucose 93 mg/dL (75-100) 05/24/18 05:45 POC Glucose 110 (70-105) H 05/24/18 06:36 Osmolality 286 Mosm/kg 05/16/18 10:58 Calcium 8.1 mg/dL (8.4-10.2) L 05/24/18 05:45 Phosphorus 4.10 mg/dL (2.5-4.5) 05/24/18 05:45 Magnesium 1.80 mg/dL (1.7-2.3) 05/24/18 05:45 Total Bilirubin 0.20 mg/dL (0.1-1.2) 05/10/18 06:10 AST 52 units/L (5-40) H 05/10/18 06:10 ALT 36 units/L (7-56) 05/10/18 06:10 Alkaline Phosphatase 81 units/L (35-129) 05/10/18 06:10 Total Creatine Kinase 33 units/L (55-170) L 05/06/18 12:11 CK-MB (CK-2) 1.1 ng/mL (0.0-4.0) 05/06/18 12:11 CK-MB (CK-2) Rel Index 3.3 (0-4) 05/06/18 12:11 Troponin T < 0.010 ng/mL (0.00-0.029) 05/06/18 12:11 Total Protein 5.7 g/dL (6.3-8.2) L 05/10/18 06:10 Albumin 2.5 g/dL (3.9-5) L 05/10/18 06:10 Albumin/Globulin Ratio 0.8 % 05/10/18 06:10 Lipase 17 units/L (13-60) 05/05/18 20:49 Urine Osmolality 184 Mosm/kg 05/16/18 12:16 Urine Potassium 1.00 mmol/L 05/16/18 12:16 Hepatitis A IgM Ab Non-reactive (NonReactive) 05/17/18 19:00 Hep Bs Antigen Non-reactive (Negative) 05/17/18 19:00 Hep B Core IgM Ab Non-reactive (NonReactive) 05/17/18 19:00 Hepatitis C Antibody Non-reactive (NonReactive) 05/17/18 19:00 Blood Type A POSITIVE 05/05/18 20:49 Antibody Screen Negative 05/05/18 20:49 Nutrition/Malnutrition Assess - Dietary Evaluation Nutrition/Malnutrition Findings: Nutrition Notes Start: 05/06/18 10:29 Freq: Status: Active Protocol: Document 05/23/18 12:33 LP (Rec: 05/23/18 12:36 LP [email or web address]) Nutrition Notes Initial or Follow up Reassessment Current Diagnosis Coronary Artery Disease Hypertension Other Pertinent Diagnosis J-Tube, CABG, Gastric Bypass ( 2008) Current Diet PPN at 75ml/hr and [place] Labs/Tests Reviewed Pertinent Medications Reviewed Height 6 ft 1 in Weight 69.1 kg [place] Body Weight (kg) 83.63 BMI 20.0 Subjective/Other Information Day 3 PPN. Percent of energy/protein needs met: 32%/87% Burn Absent Trauma Absent #2 Nutrition Diagnosis Altered GI function Diagnosis Progress(for reassessment Continues documentation) #1 Nutrition Diagnosis Malnutrition Diagnosis Progress(for reassessment Continues documentation) Is patient on ventilator? No Is Patient Ambulatory and/or Out of Bed Yes REE-([facility]-ambulatory/OOB) [ 5937.844 [id number]] Calculation Used for Recommendations [facility] Additional Notes Pro needs: 79-99 g/day (1.2-1. 5 g/kg BW) Fluid needs: 1 ml/kcal Nutrition Intervention Change Diet Order: PPN and [place] diet Nutrition Support: PPN at 75ml/hr: Lipids MVI, Thiamine Kcal 1,160 Protein (gm) 80 Carbohydrates (gm) 100 Fat (gm) 50 Fluid (mL) 2,050 Fiber (gm) 0 Goal #1 Meet kcal and protein needs as best as possible with PPN and [place] diet Goal #2 Weight maintenance Anticipated Discharge Needs: Unknown at this time Follow-Up By: 05/24/18 Additional Comments Labs in AM BMP MgVelma
[2018-05-24] MEDS: PLAVIX PO SCH (09:50)
[2018-05-24] MEDS: COREG PO SCH ×2 (09:51→22:25)
[2018-05-24] MEDS: NORVASC PO SCH (09:52)
[2018-05-24] MEDS: IMDUR PO SCH (09:52)
[2018-05-24] MEDS: PREVACID SOLUTAB FEEDTUBE SCH (09:53)
[2018-05-24] MEDS: LOVENOX SUB-Q SCH (09:53)
[2018-05-24] MEDS: FLORINEF PO SCH (10:10)
[2018-05-24] MEDS: THALITONE PO SCH (10:10)
[2018-05-24] MEDS: SODIUM CHLORIDE FLUSH SYRINGE 10 ML IV SCH ×2 (10:18→22:26)
[2018-05-24] MEDS ORDERED: TPN ADULT 1,800 ML IV SCH (20:00)
[2018-05-24] MEDS: AMBIEN PO PRN (23:11)
[2018-05-25] MEDS: PERCOCET 5/325 PO PRN ×3 (01:26→17:28)
[2018-05-25 07:22] LABS: Alanine Aminotransferase 15 units/L (7-56); Albumin 2.5 g/dL (3.9-5); BUN/Creatinine Ratio 21; Blood Urea Nitrogen 15 mg/dL (9-20); Calcium 8.3 mg/dL (8.4-10.2); Hemolysis Index 13
[2018-05-25] MEDS: IMDUR PO SCH (09:21)
[2018-05-25] MEDS: PREVACID SOLUTAB FEEDTUBE SCH (09:21)
[2018-05-25] MEDS: LOVENOX SUB-Q SCH (09:21)
[2018-05-25] MEDS: NORVASC PO SCH (09:22)
[2018-05-25] MEDS: FLORINEF PO SCH (09:22)
[2018-05-25] MEDS: COREG PO SCH ×2 (09:22→22:09)
[2018-05-25] MEDS: THALITONE PO SCH (09:23)
[2018-05-25] MEDS: PLAVIX PO SCH (09:23)
[2018-05-25] MEDS: SODIUM CHLORIDE FLUSH SYRINGE 10 ML IV SCH ×2 (09:23→22:29)
[2018-05-25] MEDS: XANAX PO PRN ×2 (09:51→17:29)
--- NOTE | 2018-05-25 10:48 | Progress Note ---
Assessment and Plan Assessment and plan: 48-year-old male admitted for J-tube malfunction and has been having recurrent hyperkalemia, received hemodialysis as needed Hyperkalemia completely resolved, no further need for HD, Vas-Cath removed, GI has evaluated the patient Advised to consult IR, IR evaluated the patient, size of the J-tube is not available in the hospital Special order placed from clinical laboratory scientist, we'll start TPN/PPN in the intervening period --Malfunctioning J-tube; IR evaluation and recommendations noted and appreciated J tube #20[which patient has] he is not available in the hospital Special order placed from diet aid, will be replaced when available Meanwhile we will start TPN/PPN --Persistent Hyperkalemia, resolved Patient received hemodialysis ,no longer needs HD --Unstable angina stress test abnormal s/p LT cardiac cath which showed known severe multi-vessel CAD medical management recommended --Severe Protein calorie Malnutrition J tube malfunctioning, start TPN till Jtube is replaced --Anemia of chronic disease; H/H stable --Acute on chronic abd pain/chronic pain syndrome stable on PRN narcotics --h/o Gastric bypass 2008 --h/o Perforated PUD, continue PPI --h/o CAD s/p CABG and stent placement, cont home meds --HTN; Continue current antihypertensives and when necessary medications --Physical deconditioning Physical therapy occupational therapy, patient refused therapy --CODE STATUS Full Code Consults and recommendations noted and appreciated Patient is awaiting for a J-tube replacement when J-tube is available History Interval history: Patient seen and examined medical records reviewed Patient feels better , no new complaints Vital signs reviewed Waiting for J-tube replacement Hospitalist Physical - Constitutional Vitals: Temp Pulse Resp BP Pulse Ox 97.8 F 61 20 153/88 99 05/25/18 06:12 05/25/18 09:21 05/25/18 08:46 05/25/18 09:22 05/25/18 06:12 General appearance: Present: no acute distress, cachectic (pt appears very thin), disheveled - EENT Eyes: Present: PERRL, EOM intact - Neck Neck: Present: supple, normal ROM - Respiratory Respiratory effort: normal Respiratory: bilateral: diminished, negative: rales, rhonchi, wheezing - Cardiovascular Rhythm: regular Heart Sounds: Present: S1 & S2 - Extremities Extremities: no ischemia, No edema - Abdominal General gastrointestinal: soft, non-tender, non-distended, normal bowel sounds - Integumentary Integumentary: Present: clear, warm - Psychiatric Psychiatric: appropriate mood/affect, cooperative - Neurologic Neurologic: CNII-XII intact, moves all extremities Results - Labs CBC & Chem 7: 05/24/18 05:45 05/25/18 06:00 Labs: Laboratory Last Values WBC 4.0 K/mm3 (4.5-11.0) L 05/24/18 05:45 RBC 2.69 M/mm3 (3.65-5.03) L 05/24/18 05:45 Hgb 8.1 gm/dl (11.8-15.2) L 05/24/18 05:45 Hct 24.0 % (35.5-45.6) L 05/24/18 05:45 MCV 89 fl (84-94) 05/24/18 05:45 MCH 30 pg (28-32) 05/24/18 05:45 MCHC 34 % (32-34) 05/24/18 05:45 RDW 15.0 % (13.2-15.2) 05/24/18 05:45 Plt Count 166 K/mm3 (140-440) 05/24/18 05:45 Lymph % (Auto) 30.3 % (13.4-35.0) 05/24/18 05:45 [place] % (Auto) 8.0 % (0.0-7.3) H 05/24/18 05:45 Eos % (Auto) 3.7 % (0.0-4.3) 05/24/18 05:45 Baso % (Auto) 0.5 % (0.0-1.8) 05/24/18 05:45 Lymph # 1.2 K/mm3 (1.2-5.4) 05/24/18 05:45 [place] # 0.3 K/mm3 (0.0-0.8) 05/24/18 05:45 Eos # 0.1 K/mm3 (0.0-0.4) 05/24/18 05:45 Baso # 0.0 K/mm3 (0.0-0.1) 05/24/18 05:45 Seg Neutrophils % 57.5 % (40.0-70.0) 05/24/18 05:45 Seg Neutrophils # 2.3 K/mm3 (1.8-7.7) 05/24/18 05:45 PT 14.0 Sec. (12.2-14.9) 05/09/18 05:16 INR 1.02 (0.87-1.13) 05/09/18 05:16 APTT 24.4 Sec. (24.2-36.6) 05/09/18 05:16 D-Dimer 479.07 ng/mlDDU (0-234) H 05/05/18 20:49 Sodium 140 mmol/L (137-145) 05/25/18 06:00 Potassium 4.0 mmol/L (3.6-5.0) 05/25/18 06:00 Chloride 103.8 mmol/L (98-107) 05/25/18 06:00 Carbon Dioxide 27 mmol/L (22-30) 05/25/18 06:00 Anion Gap 13 mmol/L 05/25/18 06:00 BUN 15 mg/dL (9-20) 05/25/18 06:00 Creatinine 0.7 mg/dL (0.8-1.5) L 05/25/18 06:00 Estimated GFR > 60 ml/min 05/25/18 06:00 BUN/Creatinine Ratio 21 % 05/25/18 06:00 Glucose 94 mg/dL (75-100) 05/25/18 06:00 POC Glucose 87 (70-105) 05/25/18 06:17 Osmolality 286 Mosm/kg 05/16/18 10:58 Calcium 8.3 mg/dL (8.4-10.2) L 05/25/18 06:00 Phosphorus 4.10 mg/dL (2.5-4.5) 05/24/18 05:45 Magnesium 1.80 mg/dL (1.7-2.3) 05/24/18 05:45 Total Bilirubin 0.20 mg/dL (0.1-1.2) 05/25/18 06:00 AST 22 units/L (5-40) 05/25/18 06:00 ALT 15 units/L (7-56) 05/25/18 06:00 Alkaline Phosphatase 60 units/L (35-129) 05/25/18 06:00 Total Creatine Kinase 33 units/L (55-170) L 05/06/18 12:11 CK-MB (CK-2) 1.1 ng/mL (0.0-4.0) 05/06/18 12:11 CK-MB (CK-2) Rel Index 3.3 (0-4) 05/06/18 12:11 Troponin T < 0.010 ng/mL (0.00-0.029) 05/06/18 12:11 Total Protein 5.2 g/dL (6.3-8.2) L 05/25/18 06:00 Albumin 2.5 g/dL (3.9-5) L 05/25/18 06:00 Albumin/Globulin Ratio 0.9 % 05/25/18 06:00 Triglycerides 94 mg/dL (2-149) 05/25/18 06:00 Lipase 17 units/L (13-60) 05/05/18 20:49 Urine Osmolality 184 Mosm/kg 05/16/18 12:16 Urine Potassium 1.00 mmol/L 05/16/18 12:16 Hepatitis A IgM Ab Non-reactive (NonReactive) 05/17/18 19:00 Hep Bs Antigen Non-reactive (Negative) 05/17/18 19:00 Hep B Core IgM Ab Non-reactive (NonReactive) 05/17/18 19:00 Hepatitis C Antibody Non-reactive (NonReactive) 05/17/18 19:00 Blood Type A POSITIVE 05/05/18 20:49 Antibody Screen Negative 05/05/18 20:49 Nutrition/Malnutrition Assess - Dietary Evaluation Nutrition/Malnutrition Findings: Nutrition Notes Start: 05/06/18 10:29 Freq: Status: Active Protocol: Document 05/24/18 12:41 (Rec: 05/24/18 12:49 [email or web address]) Co-Sign 05/24/18 12:41 LP Nutrition Notes Initial or Follow up Reassessment Current Diagnosis Coronary Artery Disease, Hypertension Other Pertinent Diagnosis J-Tube, CABG, Gastric Bypass ( 2008) Current Diet PPN at 75ml/hr and FL Labs/Tests Ca: 8.1 Pertinent Medications Reviewed Height 6 ft 1 in Weight 69.1 kg [place] Body Weight (kg) 83.63 BMI 20.0 Subjective/Other Information Day 4 PPN. Observed TPN bag infusing at 75 ml/hr. Pt stated he was able to eat 3 spoonfuls of grits this morning. Percent of energy/protein needs met: 60%/100% Burn Absent Trauma Absent #2 Nutrition Diagnosis Altered GI function Diagnosis Progress(for reassessment Continues documentation) #1 Nutrition Diagnosis Malnutrition Diagnosis Progress(for reassessment Continues documentation) Is patient on ventilator? No Is Patient Ambulatory and/or Out of Bed No REE-([facility]-confined to bed) [phone] Calculation Used for Recommendations [facility] Additional Notes Pro needs: 79-99 g/day (1.2-1. 5 g/kg BW) Fluid needs: 1 ml/kcal Nutrition Intervention Change Diet Order: PPN and [place] diet Nutrition Support: PPN at 75ml/hr: MVI, MTE, 12 mEq of Ca Kcal 660 Protein (gm) 80 Carbohydrates (gm) 100 Fat (gm) 0 Fluid (mL) 1,800 Fiber (gm) 0 Goal #1 Meet kcal and protein needs as best as possible with PPN and [place] diet Goal #2 Weight maintenance Anticipated Discharge Needs: Unknown at this time Follow-Up By: 05/25/18 Additional Comments Labs in AM: CMP, Triglycerides
[2018-05-25] MEDS: DILAUDID IV PRN (14:14)
[2018-05-25] MEDS: ZOFRAN IV PRN (14:14)
[2018-05-25] MEDS ORDERED: INTRALIPID 20% 250 ML IV SCH (20:00)
[2018-05-25] MEDS ORDERED: TPN ADULT 1,800 ML IV SCH (20:00)
[2018-05-25] MEDS: AMBIEN PO PRN (22:09)
[2018-05-26] MEDS: XANAX PO PRN ×3 (02:30→17:39)
[2018-05-26] MEDS: PERCOCET 5/325 PO PRN ×3 (02:30→17:39)
[2018-05-26] MEDS: DILAUDID IV PRN ×3 (05:31→22:09)
[2018-05-26] MEDS ORDERED: NACL 0.9% 500 ML IR ONE (08:25)
[2018-05-26] MEDS ORDERED: ANCEF/STERILE WATER 2 GM/20 ML 2 GM/20 ML SYRINGE IV ONE (08:26)
[2018-05-26] MEDS ORDERED: NACL 0.9% 500 ML 500 ML ONE (08:26)
[2018-05-26] MEDS: VERSED ONE ×5 (09:08→09:25)
[2018-05-26] MEDS: SUBLIMAZE ONE ×3 (09:08→09:20)
[2018-05-26] MEDS: XYLOCAINE 2% INFILTRATI ONE ×2 (09:09→09:18)
[2018-05-26] MEDS ORDERED: SUBLIMAZE ONE (09:21)
[2018-05-26] MEDS ORDERED: SILVER NITRATE TP ONE (09:39)
--- NOTE | 2018-05-26 09:47 | Operative Report ---
Operative Report Operative Report: EXAM: 1. 20 Fr Jejunostomy tube exchange 2. Small bowel contrast evaluation and interpretation 3. Silver nitrate cauterization of granulation tissue DATE: 05/26/18 COW PUNCHER: HEBER BISHOP MD INDICATION: 20 [place] jejunostomy tube clogged requiring exchange MEDICATIONS: Please see nursing report for full details. DEVICES: 20 [place] jejunostomy tube CONTRAST: 100 mL of nonionic contrast in the small bowel PROCEDURE: The risks, benefits, and alternatives were discussed with the patient; written informed consent was obtained. The patient's abdomen was prepped and draped in a sterile fashion with Betadine. Fluoroscopy was used to evaluate the abdomen which demonstrated that there is only about 10 cm of the tube still left inside the patient small bowel. Most the tube was external to the patient. At the tube tract site, there is a small amount of drainage with some irritated tissue and cannulation tissue along the tract. The area around the tube was anesthetized with lidocaine. I attempted to pass a stiff Glidewire through the existing jejunostomy tube but it was unsuccessful. I cut off part of the external portion of the jejunostomy tube and after this was performed, I was able to pass the stiff Glidewire and an angled catheter through the indwelling jejunostomy tube and further into the small bowel. Contrast was injecting confirming position and the small bowel and peristalsis was noted to follow the loop of bowel indicating I was cannulating the efferent loop. The remnant of the J-tube and the vertebral catheter were removed. 20 [place] jejunostomy tube was advanced over the wire. Contrast was injected through the jejunostomy tube confirming position in efferent loop bowel. The bowel was slightly dilated, probably from contrast injection, but then decompressed into non dilated bowel. Silver nitrate was then used to cauterize the tract of the jejunostomy tube and treat the granulation tissue. Sterile gauze and dressing applied. Patient tolerated the procedure well. No immediate postprocedure complication. FINDINGS: Please see procedure note above. IMPRESSION: Successful jejunostomy tube exchange
--- NOTE | 2018-05-26 09:48 | Event Note ---
Date: 05/26/18 J Tube became available towards the end of the day of 05/25/18 and therefore patient was placed on the schedule for J tube exchange on 05/26/18.
[2018-05-26] MEDS: LOVENOX SUB-Q SCH (11:08)
[2018-05-26] MEDS: NORVASC PO SCH (11:09)
[2018-05-26] MEDS: COREG PO SCH ×2 (11:10→22:12)
[2018-05-26] MEDS: PREVACID SOLUTAB FEEDTUBE SCH (11:10)
[2018-05-26] MEDS: IMDUR PO SCH (11:10)
[2018-05-26] MEDS: THALITONE PO SCH (11:10)
[2018-05-26] MEDS: PLAVIX PO SCH (11:10)
[2018-05-26] MEDS: SODIUM CHLORIDE FLUSH SYRINGE 10 ML IV SCH ×2 (11:11→22:11)
[2018-05-26] MEDS: FLORINEF PO SCH (11:11)
[2018-05-26] MEDS ORDERED: SIMPLE SYRUP FEEDTUBE PRN ×2 (16:38)
[2018-05-26] MEDS ORDERED: SODIUM BICARBONATE FEEDTUBE PRN (16:38)
[2018-05-26] MEDS ORDERED: PANCREAZE DR 10,500 UNIT FEEDTUBE PRN (16:38)
--- NOTE | 2018-05-26 19:05 | Progress Note ---
Assessment and Plan Assessment and plan: 48-year-old male admitted for J-tube malfunction and has been having recurrent hyperkalemia, received hemodialysis as needed Hyperkalemia completely resolved, no further need for HD, Vas-Cath removed, GI has evaluated the patient Advised to consult IR, IR evaluated the patient, size of the J-tube is not available in the hospital Special order placed from clinical laboratory science professor, received TPN/PPN in the intervening period, today patient underwent J-tube replacement by IR Dr.Penn Hall to start tube feeding --Malfunctioning J-tube;s/p replacement of J tube today Okay to start tube feeding, however patient does not feel comfortable and fuzed --Persistent Hyperkalemia, resolved Patient received hemodialysis briefly,no longer needs HD --Unstable angina stress test abnormal s/p LT cardiac cath which showed known severe multi-vessel CAD medical management recommended --Severe Protein calorie Malnutrition On TPN, J-tube replacement, can restart tube feeding --Anemia of chronic disease; H/H stable --Acute on chronic abd pain/chronic pain syndrome stable on PRN narcotics --h/o Gastric bypass 2008 --h/o Perforated PUD, continue PPI --h/o CAD s/p CABG and stent placement, cont home meds --HTN; Continue current antihypertensives and when necessary medications --Physical deconditioning Physical therapy occupational therapy, patient refused therapy --CODE STATUS Full Code Closely monitor, if the patient tolerates J-tube feeding And if stable may be discharged home tomorrow History Interval history: Patient seen and examined medical records reviewed patient received 20Fr J- tube replacement per Dr. Barragan Patient complains of some pain Alert and awake not in acute distress Vital signs reviewed Hospitalist Physical - Constitutional Vitals: Temp Pulse Resp BP Pulse Ox 98.0 F 64 20 150/85 100 05/26/18 17:19 05/26/18 17:19 05/26/18 17:39 05/26/18 17:19 05/26/18 17:19 General appearance: Present: no acute distress, cachectic (pt appears very thin), disheveled - EENT Eyes: Present: PERRL, EOM intact - Neck Neck: Present: supple, normal ROM - Respiratory Respiratory effort: normal - Cardiovascular Rhythm: regular Heart Sounds: Present: S1 & S2 - Extremities Extremities: no ischemia, No edema - Abdominal General gastrointestinal: soft, non-tender, non-distended, normal bowel sounds - Integumentary Integumentary: Present: clear, warm - Psychiatric Psychiatric: appropriate mood/affect, cooperative - Neurologic Neurologic: moves all extremities Results - Labs CBC & Chem 7: 05/24/18 05:45 05/25/18 06:00 Labs: Laboratory Last Values WBC 4.0 K/mm3 (4.5-11.0) L 05/24/18 05:45 RBC 2.69 M/mm3 (3.65-5.03) L 05/24/18 05:45 Hgb 8.1 gm/dl (11.8-15.2) L 05/24/18 05:45 Hct 24.0 % (35.5-45.6) L 05/24/18 05:45 MCV 89 fl (84-94) 05/24/18 05:45 MCH 30 pg (28-32) 05/24/18 05:45 MCHC 34 % (32-34) 05/24/18 05:45 RDW 15.0 % (13.2-15.2) 05/24/18 05:45 Plt Count 166 K/mm3 (140-440) 05/24/18 05:45 Lymph % (Auto) 30.3 % (13.4-35.0) 05/24/18 05:45 [place] % (Auto) 8.0 % (0.0-7.3) H 05/24/18 05:45 Eos % (Auto) 3.7 % (0.0-4.3) 05/24/18 05:45 Baso % (Auto) 0.5 % (0.0-1.8) 05/24/18 05:45 Lymph # 1.2 K/mm3 (1.2-5.4) 05/24/18 05:45 [place] # 0.3 K/mm3 (0.0-0.8) 05/24/18 05:45 Eos # 0.1 K/mm3 (0.0-0.4) 05/24/18 05:45 Baso # 0.0 K/mm3 (0.0-0.1) 05/24/18 05:45 Seg Neutrophils % 57.5 % (40.0-70.0) 05/24/18 05:45 Seg Neutrophils # 2.3 K/mm3 (1.8-7.7) 05/24/18 05:45 PT 14.0 Sec. (12.2-14.9) 05/09/18 05:16 INR 1.02 (0.87-1.13) 05/09/18 05:16 APTT 24.4 Sec. (24.2-36.6) 05/09/18 05:16 D-Dimer 479.07 ng/mlDDU (0-234) H 05/05/18 20:49 Sodium 140 mmol/L (137-145) 05/25/18 06:00 Potassium 4.0 mmol/L (3.6-5.0) 05/25/18 06:00 Chloride 103.8 mmol/L (98-107) 05/25/18 06:00 Carbon Dioxide 27 mmol/L (22-30) 05/25/18 06:00 Anion Gap 13 mmol/L 05/25/18 06:00 BUN 15 mg/dL (9-20) 05/25/18 06:00 Creatinine 0.7 mg/dL (0.8-1.5) L 05/25/18 06:00 Estimated GFR > 60 ml/min 05/25/18 06:00 BUN/Creatinine Ratio 21 % 05/25/18 06:00 Glucose 94 mg/dL (75-100) 05/25/18 06:00 POC Glucose 110 (70-105) H 05/26/18 17:27 Osmolality 286 Mosm/kg 05/16/18 10:58 Calcium 8.3 mg/dL (8.4-10.2) L 05/25/18 06:00 Phosphorus 4.10 mg/dL (2.5-4.5) 05/24/18 05:45 Magnesium 1.80 mg/dL (1.7-2.3) 05/24/18 05:45 Total Bilirubin 0.20 mg/dL (0.1-1.2) 05/25/18 06:00 AST 22 units/L (5-40) 05/25/18 06:00 ALT 15 units/L (7-56) 05/25/18 06:00 Alkaline Phosphatase 60 units/L (35-129) 05/25/18 06:00 Total Creatine Kinase 33 units/L (55-170) L 05/06/18 12:11 CK-MB (CK-2) 1.1 ng/mL (0.0-4.0) 05/06/18 12:11 CK-MB (CK-2) Rel Index 3.3 (0-4) 05/06/18 12:11 Troponin T < 0.010 ng/mL (0.00-0.029) 05/06/18 12:11 Total Protein 5.2 g/dL (6.3-8.2) L 05/25/18 06:00 Albumin 2.5 g/dL (3.9-5) L 05/25/18 06:00 Albumin/Globulin Ratio 0.9 % 05/25/18 06:00 Triglycerides 94 mg/dL (2-149) 05/25/18 06:00 Lipase 17 units/L (13-60) 05/05/18 20:49 Urine Osmolality 184 Mosm/kg 05/16/18 12:16 Urine Potassium 1.00 mmol/L 05/16/18 12:16 Hepatitis A IgM Ab Non-reactive (NonReactive) 05/17/18 19:00 Hep Bs Antigen Non-reactive (Negative) 05/17/18 19:00 Hep B Core IgM Ab Non-reactive (NonReactive) 05/17/18 19:00 Hepatitis C Antibody Non-reactive (NonReactive) 05/17/18 19:00 Blood Type A POSITIVE 05/05/18 20:49 Antibody Screen Negative 05/05/18 20:49 Nutrition/Malnutrition Assess - Dietary Evaluation Nutrition/Malnutrition Findings: Nutrition Notes Start: 05/06/18 10:29 Freq: Status: Active Protocol: Document 05/26/18 12:54 (Rec: 05/26/18 13:06 [email or web address]) Co-Sign 05/26/18 12:54 LP Nutrition Notes Initial or Follow up Reassessment Current Diagnosis Coronary Artery Disease, Hypertension Other Pertinent Diagnosis J-Tube, CABG, Gastric Bypass ( 2008) Current Diet PPN at 75ml/hr Labs/Tests No labs Pertinent Medications Reveiwed Height 6 ft 1 in Weight 69.1 kg [place] Body Weight (kg) 83.63 BMI 20.0 Subjective/Other Information Day 6 PPN. Pt had procedure to fix J.tube this AM. Per pt, PPN was cut off this AM prior to procedure and has since been restarted. Per pt, lipids did not infuse today due to problem with IV access. Pt. did not have labs today due to issues with collecting blood sample. Waiting for [place] diet order to be added back. Burn Absent Trauma Absent #2 Nutrition Diagnosis Altered GI function Diagnosis Progress(for reassessment Continues documentation) #1 Nutrition Diagnosis Malnutrition Diagnosis Progress(for reassessment Continues documentation) Is patient on ventilator? No Is Patient Ambulatory and/or Out of Bed No REE-([facility]-confined to bed) 1935.720 Calculation Used for Recommendations [facility] Additional Notes Pro needs: 79-99 g/day (1.2-1. 5 g/kg BW) Fluid needs: 1 ml/kcal Nutrition Intervention Change Diet Order: Continue PPN and add [place] diet back when medically feasible Nutrition Support: PPN at 75ml/hr: MVI, MTE Kcal 660 Protein (gm) 80 Carbohydrates (gm) 100 Fat (gm) 0 Fluid (mL) 1,800 Fiber (gm) 0 Goal #1 Advance diet when medically feasible Goal #2 Meet kcal and protein needs as best as possible with PPN Goal #3 Weight maintenance Anticipated Discharge Needs: Unknown at this time Follow-Up By: 05/27/18 Additional Comments Labs in AM: BMP, Mg, Phos
[2018-05-26] MEDS ORDERED: TPN ADULT 1,800 ML IV SCH (20:00)
[2018-05-26] MEDS: ZOFRAN IV PRN (22:10)
[2018-05-26] MEDS: AMBIEN PO PRN (22:29)
[2018-05-27] MEDS: PERCOCET 5/325 PO PRN ×2 (00:33→08:21)
[2018-05-27] MEDS: DILAUDID IV PRN ×2 (05:56→13:12)
[2018-05-27] MEDS: XANAX PO PRN (05:56)
[2018-05-27] MEDS ORDERED: PANCREAZE DR 10,500 UNIT FEEDTUBE PRN (09:15)
[2018-05-27] MEDS: SODIUM CHLORIDE FLUSH SYRINGE 10 ML IV SCH (09:52)
[2018-05-27] MEDS: PLAVIX PO SCH (09:52)
[2018-05-27] MEDS: LOVENOX SUB-Q SCH (09:53)
[2018-05-27] MEDS: IMDUR PO SCH (09:54)
[2018-05-27] MEDS: NORVASC PO SCH (09:54)
[2018-05-27] MEDS: FLORINEF PO SCH (09:54)
[2018-05-27] MEDS: THALITONE PO SCH (09:54)
[2018-05-27] MEDS: PREVACID SOLUTAB FEEDTUBE SCH (09:55)
[2018-05-27] MEDS: COREG PO SCH (09:55)
[2018-05-27 09:59] VITALS: BP 139/75
[2018-05-27] MEDS ORDERED: SODIUM BICARBONATE FEEDTUBE PRN (10:00)
[2018-05-27] MEDS ORDERED: SIMPLE SYRUP FEEDTUBE PRN ×2 (10:00)
--- NOTE | 2018-05-27 12:29 | Discharge Summary ---
Providers - Providers Date of Admission: 05/06/18 02:22 Date of discharge: 05/27/18 Attending physician: SRINIVASA TAVERAS 05/06/18 05:39 Consult to Wound/ET Nurse [CONS] Routine Reason For Exam: wound eval 05/06/18 06:42 Consult to Physician [CONS] Routine Comment: Consulting Provider: JOVANNI MANUEL Physician Instructions: Reason For Exam: paIN around J tube 05/09/18 14:57 Consult to Cardiac Rehabilitation [CONS] Routine Reason For Exam: Cardiac Rehab Evaluation 05/10/18 11:11 Consult to Physician [CONS] Routine Comment: Consulting Provider: JOVANNI MANUEL Physician Instructions: Reason For Exam: peg tube malfunction 05/12/18 09:35 Consult to Physician [CONS] Routine Comment: Consulting Provider: LUIS LEONARDO Physician Instructions: Reason For Exam: hyperkalemia 05/12/18 17:24 Consult to Dietitian/Nutrition [CONS] Routine Physician Instructions: Reason For Exam: Reason for Consult: Write/Manage Tube Feeding 05/14/18 13:01 Occupational Therapy Evaluate and Treat [CONS] Routine Comment: Reason For Exam: physcial deconditioning Physical Therapy Evaluation and Treat [CONS] Routine Comment: Reason For Exam: physical deconditioning 05/17/18 15:58 Consult to Physician [CONS] Urgent Comment: Informed 955 am Consulting Provider: GAYE HYDE Physician Instructions: Urgent vascath Reason For Exam: VASCATH STAT 05/19/18 15:46 Consult to Physician [CONS] Routine Comment: Consulting Provider: HEBER BISHOP Physician Instructions: Reason For Exam: J tube malfunction [ GI adv IR evaln] 05/20/18 18:56 Consult to Dietitian/Nutrition [CONS] Routine Physician Instructions: Reason For Exam: Reason for Consult: Write/Manage TPN/PPN 05/21/18 10:01 Consult to Physician [CONS] Routine Comment: I spoke with the doctor Consulting Provider: VAMSI WINTERS Physician Instructions: Reason For Exam: central line for TPN 05/24/18 09:32 Consult to Physician [CONS] Urgent Comment: Consulting Provider: HEBER BISHOP Physician Instructions: Reason For Exam: J tube malfunction/for replacement 05/26/18 16:38 Consult to Dietitian/Nutrition [CONS] Routine Physician Instructions: Assess nutrtn needs, initiate, modify, manage TF Reason For Exam: Reason for Consult: Write/Manage Tube Feeding Reason for Consult: Write/Manage Tube Feeding Primary care physician: DOROTA CORREA Hospitalization Reason for admission: J-tube malfunction/chest pain Condition: Stable Pertinent studies: CT abdomen and pelvis CTA chest Chest x-ray Stress test; abnormal myocardial perfusion scan revealing moderate sized fixed by color wall defect and severe intensity suggestive of ischemia in the LAD distribution ejection fraction 68% a bicycle wall hypokinesis noted intermittent risk myocardial perfusion imaging scan associated with one-year cardiovascular event rate 1-3% Left heart catheterization; No significant gradient across the aortic valve bioprosthesis Left ventricular ejection fraction 65-70% Multivessel coronary artery disease with severe lesions of LAD and right coronary arteries Patent left internal mammary artery graft to LAD Patent saphenous vein graft to the distal right coronary artery Advice aggressive risk factor modification and medical therapy Hospital course: 48-year-old male admitted for J-tube malfunction and has been having recurrent hyperkalemia, received hemodialysis as needed Hyperkalemia completely resolved, no further need for HD, Vas-Cath removed, GI has evaluated the patient Advised to consult IR, IR evaluated the patient, size of the J-tube is not available in the hospital Special order placed from laborer tin can, received TPN/PPN in the intervening period, today patient underwent J-tube replacement by IR Dr.Penn Hall to start tube feeding, patient tolerated tube feedings. Patient had chest pain upon admission, has significant coronary artery disease status post CABG Evaluated by cardiology, underwent stress test which was abnormal later had left heart catheterization findings as mentioned above Cardiology recommended aggressive risk management and medical therapy Today his comfortable no new complaints vital signs stable Patient is advised to advance J-tube feeding as well as intermittent oral feeding as tolerated Patient is hemodynamically and clinically stable at discharge Discharge diagnosis:; --Malfunctioning J-tube;s/p replacement of J tube today Okay to start tube feeding, however patient does not feel comfortable and fuzed --Persistent Hyperkalemia, resolved Patient received hemodialysis briefly,no longer needs HD --Unstable angina stress test abnormal s/p LT cardiac cath which showed known severe multi-vessel CAD medical management recommended --Severe Protein calorie Malnutrition On TPN, J-tube replacement, can restart tube feeding --Anemia of chronic disease; H/H stable --Acute on chronic abd pain/chronic pain syndrome stable on PRN narcotics --h/o Gastric bypass 2008 --h/o Perforated PUD, continue PPI --h/o CAD s/p CABG and stent placement, cont home meds --HTN; Continue current antihypertensives and when necessary medications --Physical deconditioning Physical therapy occupational therapy, patient refused therapy --CODE STATUS Full Code Stable at discharge Disposition: DC-01 TO HOME OR SELFCARE Time spent for discharge: 35 min Core Measure Documentation - Palliative Care Palliative Care/ Comfort Measures: Not Applicable - Core Measures Any of the following diagnoses?: none Exam - Constitutional Vitals: Temp Pulse Resp BP Pulse Ox 97.9 F 64 18 139/75 99 05/27/18 06:06 05/27/18 06:06 05/27/18 06:26 05/27/18 09:55 05/27/18 06:06 General appearance: Present: no acute distress, well-nourished - EENT Eyes: Present: PERRL, EOM intact - Neck Neck: Present: supple, normal ROM - Respiratory Respiratory effort: normal Respiratory: bilateral: diminished, negative: rales, rhonchi, wheezing - Cardiovascular Rhythm: regular Heart Sounds: Present: S1 & S2 - Extremities Extremities: no ischemia, No edema - Abdominal General gastrointestinal: Present: soft, non-tender, non-distended, normal bowel sounds, other (j-tube in place) - Integumentary Integumentary: Present: clear, warm - Musculoskeletal Musculoskeletal: strength equal bilaterally - Psychiatric Psychiatric: appropriate mood/affect, cooperative - Neurologic Neurologic: moves all extremities Plan Activity: advance as tolerated, fall precautions Diet: advance as tolerated (advance oral diet as tolerated), other (tube feeds per protocol) Special Instructions: physical therapy Additional Instructions: Ambulate as tolerated for precautions. Advance oral diet as tolerated. Follow-up with primary care physician/GI per schedule. J- tube feeds per protocol Follow up with: LIBORIO VIRGEN MD [Referring] - 3-5 Days MIN,SARAH REDMAN MD [Staff Physician] - 7 Days Prescriptions: Ambien 10 mg PO HS #5 Carvedilol [Coreg] 3.125 mg PO BID #60 tablet ISOSORBIDE MONOnitrate [Imdur ER] 30 mg PO QDAY #30 tablet Loperamide [Imodium A-D] 2 mg PO Q2HR PRN 30 Days udc PRN Reason: Diarrhea amLODIPine [Norvasc] 5 mg PO QDAY #30 tablet oxyCODONE /ACETAMINOPHEN [Percocet 5/325 mg] 1 tab PO BID PRN #10 tablet PRN Reason: Pain, Moderate (4-6) Clopidogrel [Plavix] 75 mg PO QDAY #30 tablet Lansoprazole Solutab [Prevacid Solutab] 30 mg FEEDTUBE QDAY #30 tab.rapdis Chlorthalidone [Thalitone] 25 mg PO QDAY #30 tablet
== END 2018-05-27 14:50 | disposition home or self-care (01) | DRG 393 ==
LOC: ED 20:07 → 4A 05-06 02:22 → 3A 05-22 14:18
PROVIDERS: ADMIT Internal Medicine; ATTEND Internal Medicine
PROC: 4A023N7 Measurement of Cardiac Sampling and Pressure, Left Heart, Percutaneous Approach (ICD-10-PCS; 2018-05-09)
PROC: B2111ZZ Fluoroscopy of Multiple Coronary Arteries using Low Osmolar Contrast (ICD-10-PCS; 2018-05-09)
PROC: B2181ZZ Fluoroscopy of Left Internal Mammary Bypass Graft using Low Osmolar Contrast (ICD-10-PCS; 2018-05-09)
PROC: B2121ZZ Fluoroscopy of Single Coronary Artery Bypass Graft using Low Osmolar Contrast (ICD-10-PCS; 2018-05-09)
PROC: B2151ZZ Fluoroscopy of Left Heart using Low Osmolar Contrast (ICD-10-PCS; 2018-05-09)
PROC: 02H633Z Insertion of Infusion Device into Right Atrium, Percutaneous Approach (ICD-10-PCS; 2018-05-17)
PROC: B2141ZZ Fluoroscopy of Right Heart using Low Osmolar Contrast (ICD-10-PCS; 2018-05-17)
PROC: 4A033R1 Measurement of Arterial Saturation, Peripheral, Percutaneous Approach (ICD-10-PCS; 2018-05-17)
PROC: 5A1D70Z Performance of Urinary Filtration, Intermittent, Less than 6 Hours Per Day (ICD-10-PCS; 2018-05-17)
PROC: 5A1D70Z Performance of Urinary Filtration, Intermittent, Less than 6 Hours Per Day (ICD-10-PCS; 2018-05-18)
PROC: 0D20XUZ Change Feeding Device in Upper Intestinal Tract, External Approach (ICD-10-PCS; principal; 2018-05-26)
PROC: 0J5 Subcutaneous Tissue and Fascia, Destruction (ICD-10-PCS; 2018-05-26)
DX: K94.23 Gastrostomy malfunction (principal); E43 Unspecified severe protein-calorie malnutrition; I25.110 Atherosclerotic heart disease of native coronary artery with unstable angina pectoris; N17.9 Acute kidney failure, unspecified; E87.2 Acidosis; E87.5 Hyperkalemia; D63.8 Anemia in other chronic diseases classified elsewhere; T85.848A Pain due to other internal prosthetic devices, implants and grafts, initial encounter; G89.4 Chronic pain syndrome; Y83.3 Surgical operation with formation of external stoma as the cause of abnormal reaction of the patient, or of later complication, without mention of misadventure at the time of the procedure; I25.82 Chronic total occlusion of coronary artery; E83.51 Hypocalcemia; D64.9 Anemia, unspecified; Z95.4 Presence of other heart-valve replacement; Z79.899 Other long term (current) drug therapy; Z88.8 Allergy status to other drugs, medicaments and biological substances; Z82.49 Family history of ischemic heart disease and other diseases of the circulatory system; Z88.6 Allergy status to analgesic agent; Z86.711 Personal history of pulmonary embolism; Z79.01 Long term (current) use of anticoagulants; Z87.11 Personal history of peptic ulcer disease; Z95.1 Presence of aortocoronary bypass graft; Z95.5 Presence of coronary angioplasty implant and graft; Z90.49 Acquired absence of other specified parts of digestive tract; Z98.0 Intestinal bypass and anastomosis status; Z86.718 Personal history of other venous thrombosis and embolism; Y92.098 Other place in other non-institutional residence as the place of occurrence of the external cause; Z71.89 Other specified counseling; K66.8 Other specified disorders of peritoneum
CPT/HCPCS: 17250; 36415; 36556; 49451; 71046; 71275; 74018; 74177; 78452; 80048; 80053; 80074; 82550; 82553; 82962; 83690; 83735; 83930; 83935; 84100; 84132; 84133; 84478; 84484; 85025; 85027; 85379; 85610; 85730; 86850; 86900; 86901; 93005; 93010; 93017; 93306; 93459; 96374; 99285; G0378; A9270-GY; A9502; C1752; C1760; C1769; C1894; C9113; J0610; J0690; J1170; J1644; J1650; J1815; J1940; J2250; J2270; J2405; J2785; J3010; J7030; J7040; J7050; Q9963; Q9967

== ENCOUNTER 2018-06-25 18:24 | Emergency (ER) | payer MEDICARE, OTHER ==
[2018-06-25] MEDS ORDERED: NACL 0.9% 1000 ML 1,000 ML ONE (18:53)
[2018-06-25] MEDS ORDERED: NACL 0.9% 1000 ML 1,000 ML IV ONE ×2 (19:24→20:49)
[2018-06-25 20:24] LABS: Basophils % (Auto) 0.6 % (0.0-1.8); Eosinophils % (Auto) 0.3 % (0.0-4.3); Hematocrit 34.2 % (35.5-45.6); Hemoglobin 10.9 gm/dl (11.8-15.2); Lymphocytes # (Auto) 0.7 K/mm3 (1.2-5.4); Lymphocytes % (Auto) 15.9 % (13.4-35.0); Mean Corpuscular HGB Conc 32 % (32-34); Mean Corpuscular Volume 94 fl (84-94); Monocytes # (Auto) 0.4 K/mm3 (0.0-0.8); Monocytes % (Auto) 8.1 % (0.0-7.3); Platelet Count 199 K/mm3 (140-440); Red Blood Count 3.65 M/mm3 (3.65-5.03); Red Cell Distribution Width 16.5 % (13.2-15.2)
[2018-06-25 20:40] LABS: Alanine Aminotransferase 7 units/L (7-56); Albumin 2.8 g/dL (3.9-5); BUN/Creatinine Ratio 11; Blood Urea Nitrogen 11 mg/dL (9-20); Calcium 7.9 mg/dL (8.4-10.2); Hemolysis Index 51
[2018-06-25] MEDS ORDERED: MORPHINE IV ONE ×2 (20:48→22:41)
[2018-06-25] MEDS ORDERED: ZOFRAN IV ONE (20:49)
[2018-06-25 21:56] LABS: Bilirubin,Urine NEG (Negative); Blood,Urine NEG (Negative); Color,Urine Straw (Yellow); Hyaline Casts,Urine 1 /LPF; Mucus,Urine FEW /HPF; Urobilinogen,Urine < 2.0 mg/dL (<2.0)
--- NOTE | 2018-06-25 22:19 | Cat Scan Report ---
PROCEDURE: CT abdomen and pelvis without contrast. TECHNIQUE: Computerized axial tomography of the abdomen and pelvis was performed without intravenous contrast. This study is performed without intravascular contrast material and its sensitivity for ab dominal and pelvic pathology, including neoplasms, inflammation, abscess, free fluid, thrombosis, art erial dissection and infarction, is reduced compared with a contrast enhanced study. CT DOSE LENGTH PRODUCT: Not provided mGycm HISTORY: Pain and drainage from J-tube site, fever. COMPARISONS: CT abdomen and pelvis 05/05/2018. Dictation not available. FINDINGS: The lung bases are clear. There are no pleural effusions. The heart size is normal. The liver and spl een are grossly normal. The pancreas is partially atrophic. Cholecystectomy clips are present. There is no biliary dilatation. The adrenal glands are not enlarged. Both kidneys appear normal in size and configuration. There are some vascular calcifications in both kidneys. The abdominal aorta has a nor mal caliber. There is an IVC filter present. There is no retroperitoneal adenopathy. There is a jejun ostomy catheter that enters through the left anterior abdominal wall. There is no evidence of fluid n ear the catheter to suggest an abscess. The gastrointestinal tract is unremarkable. The appendix is n ot identified. The bladder, seminal vesicles and prostate appear normal. There is left-sided spondylo lysis of L5. There is no spondylolisthesis. IMPRESSION: No evidence of acute disease in the abdomen or pelvis. This document is electronically signed by Gary Osborne MD., June 25 2018 10:16:55 PM ET
--- NOTE | 2018-06-25 22:47 | Emergency Department Report ---
ED Abdominal Pain HPI - General Chief Complaint: Abdominal Pain Stated Complaint: POSS J TUBE PERFORATION/INFECTION Time Seen by Provider: 06/25/18 20:43 Source: patient Mode of arrival: Stretcher Limitations: No Limitations - History of Present Illness Initial Comments: Patient is a 48-year-old male who has a significant past medical history which includes CABG as well as a perforated duodenum with J Kiran drain currently. Patient was discharged on Demerol J Pegg drive he has pain around the insertion site states that about clear to white fluid leaking from around the drain. Patient states his abdominal pain is a Latin severity and feels like he may have perforated something. Patient has had subjective fevers the last several days as well. Patient denies any nausea vomiting. Patient at this point takes most of his medications and oral intake by mouth. Severity scale (0 -10): 7 - Related Data Home Medications Medication Instructions Recorded Confirmed Last Taken Simvastatin 40 mg PO HS 05/06/18 05/06/18 Unknown Xanax 1 mg PO TID PRN 05/06/18 05/06/18 Unknown Previous Rx's Medication Instructions Recorded Last Taken Type Ambien 10 mg PO HS #5 05/27/18 Unknown Rx Carvedilol [Coreg] 3.125 mg PO BID #60 tablet 05/27/18 Unknown Rx Chlorthalidone [Thalitone] 25 mg PO QDAY #30 tablet 05/27/18 Unknown Rx Clopidogrel [Plavix] 75 mg PO QDAY #30 tablet 05/27/18 Unknown Rx ISOSORBIDE MONOnitrate [Imdur ER] 30 mg PO QDAY #30 tablet 05/27/18 Unknown Rx Lansoprazole Solutab [Prevacid 30 mg FEEDTUBE QDAY #30 tab.rapdis 05/27/18 Unknown Rx Solutab] Loperamide [Imodium A-D] 2 mg PO Q2HR PRN 30 Days udc 05/27/18 Unknown Rx amLODIPine [Norvasc] 5 mg PO QDAY #30 tablet 05/27/18 Unknown Rx oxyCODONE /ACETAMINOPHEN [Percocet 1 tab PO BID PRN #10 tablet 05/27/18 Unknown Rx 5/325 mg] Dicyclomine [Bentyl] 20 mg PO QID #10 tablet 06/25/18 Unknown Rx Oxycodone HCl/Acetaminophen 1 each PO Q6HR PRN #6 tablet 06/25/18 Unknown Rx [Percocet 10/325 mg] Allergies Allergy/AdvReac Type Severity Reaction Status Date / Time NSAIDS (Non-Steroidal Allergy Bleeding Verified 05/06/18 02:49 Anti-Inflamma lisinopril AdvReac Unknown Verified 05/06/18 02:49 ED Review of Systems ROS: Stated complaint: POSS J TUBE PERFORATION/INFECTION Other details as noted in HPI ED Past Medical Hx - Past Medical History Hx Hypertension: Yes Hx CVA: No Hx Heart Attack/AMI: Yes Hx Congestive Heart Failure: No Hx Diabetes: No Hx Deep Vein Thrombosis: No Hx Pulmonary Embolism: Yes Hx GERD: No Hx Liver Disease: No Hx Renal Disease: No Hx Sickle Cell Disease: No Hx Arthritis: No Hx Headaches / Migraines: No Hx Seizures: No Hx Kidney Stones: No Hx Psychiatric Treatment: No Hx Asthma: No Hx COPD: No Hx Tuberculosis: No Hx Dementia: No Hx HIV: No Additional medical history: DVT purfuated bowl jpg - Surgical History Hx Coronary Stent: Yes Hx Open Heart Surgery: No Hx Pacemaker: No Hx Internal Defibrillator: No Hx Cholecystectomy: No Hx Appendectomy: No Hx Breast Surgery: No Additional Surgical History: Gastric bypass. jpg - Social History Smoking Status: Never Smoker - Medications Home Medications: Home Medications Medication Instructions Recorded Confirmed Last Taken Type Simvastatin 40 mg PO HS 05/06/18 05/06/18 Unknown History Xanax 1 mg PO TID PRN 05/06/18 05/06/18 Unknown History Ambien 10 mg PO HS #5 05/27/18 Unknown Rx Carvedilol [Coreg] 3.125 mg PO BID #60 tablet 05/27/18 Unknown Rx Chlorthalidone [Thalitone] 25 mg PO QDAY #30 tablet 05/27/18 Unknown Rx Clopidogrel [Plavix] 75 mg PO QDAY #30 tablet 05/27/18 Unknown Rx ISOSORBIDE MONOnitrate [Imdur ER] 30 mg PO QDAY #30 tablet 05/27/18 Unknown Rx Lansoprazole Solutab [Prevacid 30 mg FEEDTUBE QDAY #30 tab.rapdis 05/27/18 Unknown Rx Solutab] Loperamide [Imodium A-D] 2 mg PO Q2HR PRN 30 Days udc 05/27/18 Unknown Rx amLODIPine [Norvasc] 5 mg PO QDAY #30 tablet 05/27/18 Unknown Rx oxyCODONE /ACETAMINOPHEN [Percocet 1 tab PO BID PRN #10 tablet 05/27/18 Unknown Rx 5/325 mg] Dicyclomine [Bentyl] 20 mg PO QID #10 tablet 06/25/18 Unknown Rx Oxycodone HCl/Acetaminophen 1 each PO Q6HR PRN #6 tablet 06/25/18 Unknown Rx [Percocet 10/325 mg] ED Physical Exam - General Limitations: No Limitations General appearance: alert, in no apparent distress, other (patient is pale and cachectic) - Head Head exam: Present: atraumatic, normocephalic - Eye Eye exam: Present: normal appearance, PERRL, EOMI - ENT ENT exam: Present: mucous membranes moist - Neck Neck exam: Present: normal inspection - Respiratory Respiratory exam: Present: normal lung sounds bilaterally. Absent: respiratory distress, wheezes, rales, rhonchi, stridor - Cardiovascular Cardiovascular Exam: Present: regular rate, normal rhythm. Absent: systolic murmur, diastolic murmur, rubs, gallop - GI/Abdominal GI/Abdominal exam: Present: soft, tenderness (diffusely. Patient's has a J PEG in place. There is some crusty material around the insertion site that appears to be serous fluid), normal bowel sounds. Absent: distended, guarding, rebound, rigid - Rectal Rectal exam: Present: deferred - Extremities Exam Extremities exam: Present: normal inspection - Back Exam Back exam: Present: normal inspection - Neurological Exam Neurological exam: Present: alert, oriented X3 - Psychiatric Psychiatric exam: Present: normal affect, normal mood - Skin Skin exam: Present: warm, dry, intact, normal color. Absent: rash ED Course Vital Signs 06/25/18 18:42 Temperature 97.8 F Pulse Rate 69 Respiratory 20 Rate Blood Pressure 125/88 O2 Sat by Pulse 100 Oximetry ED Medical Decision Making - Lab Data Result diagrams: 06/25/18 19:57 06/25/18 19:57 Lab Results 06/25/18 06/25/18 06/25/18 Range/Units 19:57 19:57 20:58 WBC 4.5 (4.5-11.0) K/mm3 RBC 3.65 (3.65-5.03) M/mm3 Hgb 10.9 L (11.8-15.2) gm/dl Hct 34.2 L (35.5-45.6) % MCV 94 (84-94) fl MCH 30 (28-32) pg MCHC 32 (32-34) % RDW 16.5 H (13.2-15.2) % Plt Count 199 (140-440) K/mm3 Lymph % (Auto) 15.9 (13.4-35.0) % [place] % (Auto) 8.1 H (0.0-7.3) % Eos % (Auto) 0.3 (0.0-4.3) % Baso % (Auto) 0.6 (0.0-1.8) % Lymph # 0.7 L (1.2-5.4) K/mm3 [place] # 0.4 (0.0-0.8) K/mm3 Eos # 0.0 (0.0-0.4) K/mm3 Baso # 0.0 (0.0-0.1) K/mm3 Seg Neutrophils % 75.1 H (40.0-70.0) % Seg Neutrophils # 3.4 (1.8-7.7) K/mm3 Sodium 140 (137-145) mmol/L Potassium 4.9 (3.6-5.0) mmol/L Chloride 105.0 (98-107) mmol/L Carbon Dioxide 24 (22-30) mmol/L Anion Gap 16 mmol/L BUN 11 (9-20) mg/dL Creatinine 1.0 (0.8-1.5) mg/dL Estimated GFR > 60 ml/min BUN/Creatinine Ratio 11 % Glucose 131 H (75-100) mg/dL Calcium 7.9 L (8.4-10.2) mg/dL Total Bilirubin 0.30 (0.1-1.2) mg/dL AST 20 (5-40) units/L ALT 7 (7-56) units/L Alkaline Phosphatase 101 (35-129) units/L Total Protein 6.0 L (6.3-8.2) g/dL Albumin 2.8 L (3.9-5) g/dL Albumin/Globulin Ratio 0.9 % Lipase 18 (13-60) units/L Urine Color (Yellow) Urine Turbidity (Clear) Urine pH (5.0-7.0) Ur Specific [place] (1.003-1.030) Urine Protein (Negative) mg/dL Urine Glucose (UA) (Negative) mg/dL Urine Ketones (Negative) mg/dL Urine Blood (Negative) Urine Nitrite (Negative) Urine Bilirubin (Negative) Urine Urobilinogen (<2.0) mg/dL Ur Leukocyte Esterase (Negative) Urine WBC (Auto) (0.0-6.0) /HPF Urine RBC (Auto) (0.0-6.0) /HPF Hyaline Casts /LPF Urine Mucus /HPF 06/25/18 Range/Units 21:48 WBC (4.5-11.0) K/mm3 RBC (3.65-5.03) M/mm3 Hgb (11.8-15.2) gm/dl Hct (35.5-45.6) % MCV (84-94) fl MCH (28-32) pg MCHC (32-34) % RDW (13.2-15.2) % Plt Count (140-440) K/mm3 Lymph % (Auto) (13.4-35.0) % [place] % (Auto) (0.0-7.3) % Eos % (Auto) (0.0-4.3) % Baso % (Auto) (0.0-1.8) % Lymph # (1.2-5.4) K/mm3 [place] # (0.0-0.8) K/mm3 Eos # (0.0-0.4) K/mm3 Baso # (0.0-0.1) K/mm3 Seg Neutrophils % (40.0-70.0) % Seg Neutrophils # (1.8-7.7) K/mm3 Sodium (137-145) mmol/L Potassium (3.6-5.0) mmol/L Chloride (98-107) mmol/L Carbon Dioxide (22-30) mmol/L Anion Gap mmol/L BUN (9-20) mg/dL Creatinine (0.8-1.5) mg/dL Estimated GFR ml/min BUN/Creatinine Ratio % Glucose (75-100) mg/dL Calcium (8.4-10.2) mg/dL Total Bilirubin (0.1-1.2) mg/dL AST (5-40) units/L ALT (7-56) units/L Alkaline Phosphatase (35-129) units/L Total Protein (6.3-8.2) g/dL Albumin (3.9-5) g/dL Albumin/Globulin Ratio % Lipase (13-60) units/L Urine Color Straw (Yellow) Urine Turbidity Clear (Clear) Urine pH 6.0 (5.0-7.0) Ur Specific [place] 1.005 (1.003-1.030) Urine Protein 100 mg/dl (Negative) mg/dL Urine Glucose (UA) Neg (Negative) mg/dL Urine Ketones Neg (Negative) mg/dL Urine Blood Neg (Negative) Urine Nitrite Neg (Negative) Urine Bilirubin Neg (Negative) Urine Urobilinogen < 2.0 (<2.0) mg/dL Ur Leukocyte Esterase Neg (Negative) Urine WBC (Auto) 1.0 (0.0-6.0) /HPF Urine RBC (Auto) 4.0 (0.0-6.0) /HPF Hyaline Casts 1 /LPF Urine Mucus Few /HPF - Radiology Data [facility] [address] [id number] Cat Scan Report Signed Patient: XENA CRUZ MR#: [id number] : 1970 Acct:[id number] Age/Sex: 48 / M ADM Date: 06/25/18 Loc: ED Attending Dr: Ordering Physician: JOEL DIAZ MD Date of Service: 06/25/18 Procedure(s): CT abdomen pelvis wo con Accession Number(s): [id number] cc: JOEL DIAZ MD PROCEDURE: CT abdomen and pelvis without contrast. TECHNIQUE: Computerized axial tomography of the abdomen and pelvis was performed without intravenous contrast. This study is performed without intravascular contrast material and its sensitivity for abdominal and pelvic pathology, including neoplasms, inflammation, abscess, free fluid, thrombosis, arterial dissection and infarction, is reduced compared with a contrast enhanced study. CT DOSE LENGTH PRODUCT: Not provided mGycm HISTORY: Pain and drainage from J-tube site, fever. COMPARISONS: CT abdomen and pelvis 05/05/2018. Dictation not available. FINDINGS: The lung bases are clear. There are no pleural effusions. The heart size is normal. The liver and spleen are grossly normal. The pancreas is partially atrophic. Cholecystectomy clips are present. There is no biliary dilatation. The adrenal glands are not enlarged. Both kidneys appear normal in size and configuration. There are some vascular calcifications in both kidneys. The abdominal aorta has a normal caliber. There is an IVC filter present. There is no retroperitoneal adenopathy. There is a jejunostomy catheter that enters through the left anterior abdominal wall. There is no evidence of fluid near the catheter to suggest an abscess. The gastrointestinal tract is unremarkable. The appendix is not identified. The bladder, seminal vesicles and prostate appear normal. There is left- sided spondylolysis of L5. There is no spondylolisthesis. IMPRESSION: No evidence of acute disease in the abdomen or pelvis. This document is electronically signed by Gary Paul MD., June 25 2018 10:16:55 PM ET Transcribed By: MRM Dictated By: GARY PAUL MD Electronically Authenticated By: GARY PAUL MD Signed Date/Time: 06/25/182218 DD/ 42 - Medical Decision Making Patient possibly had a seroma underneath the J Kiran. Does not appear to be any kind of gastric contents of bowel coming from around the tube. Patient's CT shows no acute abnormality. Patient be given pain meds and follow with his compliance review officer. Critical care attestation.: If time is entered above; I have spent that time in minutes in the direct care of this critically ill patient, excluding procedure time. ED Disposition Clinical Impression: Abdominal pain Qualifiers: Abdominal location: unspecified location Qualified Code(s): R10.9 - Unspecified abdominal pain Disposition: DC-01 TO HOME OR SELFCARE Is pt being admited?: No Does the pt Need Aspirin: No Condition: Stable Referrals: DOROTA CORREA MD [Primary Care Provider] - 3-5 Days Time of Disposition: 23:16
[2018-06-25 23:25] VITALS: BP 139/81
== END 2018-06-25 23:39 | disposition home or self-care (01) ==
LOC: ED 18:24
DX: K29.80 Duodenitis without bleeding (principal); I10 Essential (primary) hypertension; Z88.7 Allergy status to serum and vaccine; Z86.711 Personal history of pulmonary embolism; Z95.1 Presence of aortocoronary bypass graft; Z98.84 Bariatric surgery status
CPT/HCPCS: 36415; 74176; 80053; 81001; 83690; 85025; 96374; 96375; 96376; 99284; J2270; J2405; J7030